=== PATIENT | female | born 1940 | race Caucasian/White ===

== ENCOUNTER 2018-03-01 14:30 | Observation (INO) ==
--- NOTE | 2018-03-01 16:01 | ED ---
HPI General Chief complaint: Shortness of Breath/Dyspnea Stated complaint: Painful Breathing Time Seen by Provider: 03/01/18 15:12 Source: patient and family Mode of arrival: ambulatory Limitations: no limitations History of Present Illness HPI narrative: Patient is a 77-year-old female presenting to emerge from for evaluation of shortness of breath. Patient had a CT-guided lung biopsy yesterday. She states that she had a small pneumothorax and after several chest x-ray she was discharged home. She states that she had not been able to sleep well last night secondary to the pain from the incision. Shortness of breath is worse with exertion. Somewhat alleviated with rest. Symptoms have been consistent since the biopsy. Patient denies any chest pain, fever, chills , nausea, vomiting, headache. Onset (ago): day(s) (1) Location: back Radiation: non-radiation Severity: mild and moderate Severity scale (1-10): 6 Quality: aching and sharp Pain Consistency: intermittent Relieving factors: medication (Tylenol) and other (Heating pad) Exacerbating factors: none Associated symptoms: shortness of breath Treatments prior to arrival: heat therapy Related Data Home Medications Medication Instructions Recorded Confirmed prednisone 10 mg PO BID 02/28/18 02/28/18 Allergies Allergy/AdvReac Type Severity Reaction Status Date / Time No Known Allergies Allergy Verified 03/01/18 15:23 Review of Systems Except as stated in HPI: all other systems reviewed are negative [facility] Medical History Medical History Lung cancer (Acute) GERD (gastroesophageal reflux disease) (Acute) Hx of smoking (Acute) Bronchitis (Acute) Surgical History Surgical History History of bladder suspension procedure (Acute) Family History Family History Father Family history of cancer Mother Family history of cancer Family history of hypertension Sister Family history of cancer Brother Family history of cancer Social History Social History Substance History: No History of Abuse Second Hand Smoke Exposure: No Smoking Status: Former smoker Tobacco Type: Cigarettes How Often Do You Have a Drink Containing Alcohol: 4 or more times a week Recent Travel in [facility] within the Last 8 Weeks: No Recent Out of Country Travel within the Last 8 Weeks: No Immunization History Tetanus Immunization: Unsure Hx Influenza Vaccine This Season: No Exam Narrative Exam Narrative: GENERAL: Well-developed, well-nourished, alert elderly female. Presenting in no acute distress. SKIN: Focused skin assessment warm/dry. Bandage to left mid back. No erythema or induration noted. HEAD: Atraumatic. Normocephalic. EYES: Pupils equal and round. No scleral icterus. No injection or drainage. ENT: No nasal bleeding or discharge. Mucous membranes pink and moist. NECK: Trachea midline. No JVD. CARDIOVASCULAR: Regular rate and rhythm. No murmur appreciated. RESPIRATORY: No accessory muscle use. Significantly diminished in bases bilaterally. No wheezes, rhonchi, rales noted. GASTROINTESTINAL: Abdomen soft, non-tender, nondistended. Hepatic and splenic margins not palpable. MUSCULOSKELETAL: No obvious deformities. No clubbing. No cyanosis. No edema. NEUROLOGICAL: Awake and alert. No obvious cranial nerve deficits. Motor grossly within normal limits. Normal speech. PSYCHIATRIC: Appropriate mood and affect; insight and judgment normal. Course Hospital Course: @ 1620 Pt was sitting on the side of the bed, she became diaphoretic and had a syncopal episode. This was initially witnessed by her who quickly alerted staff. Pt was placed in a supine position and quickly aroused. She was answering questions appropriately. She stated that she had a bad back spasm and became clammy and felt like she was going to pass out. BG 119. VSS, O2 95% on room air. Will repeat EKG, troponin. Pt requested pain medication, morphine 2mg IV x 1 dose ordered along with zofran. Initial Documented Vital Signs Temperature 97.7 F 03/01/18 14:41 Pulse Rate 70 03/01/18 14:41 Respiratory Rate 19 03/01/18 14:41 Blood Pressure 148/82 H 03/01/18 14:41 Pulse Oximetry 98 03/01/18 14:41 Last Documented Vital Signs Temperature 97.7 F 03/01/18 14:41 Pulse Rate 66 03/01/18 15:28 Respiratory Rate 16 03/01/18 18:32 Blood Pressure 152/74 H 03/01/18 15:28 Pulse Oximetry 93 L 03/01/18 15:28 Medical Decision Making DONNELL Attestation DONNELL supervised visit: Yes Attestation: I, Dr. Coleman, have reviewed the advance practice practitioner's documentation and am in agreement, met with the patient face to face, made the diagnosis, and the medical decision making was done by me. *My assessment and Findings: Patient seen and evaluated with PA, please see her notes for further details. Patient had a syncopal episode, day after she had a pulmonary biopsy and was found to have a pneumothorax. She is complaining of upper back and chest pains, saturations are in the low side, but otherwise vital signs are stable. Initial chest x-ray was unremarkable but CT of the lungs shows a small ongoing pneumothorax, no PE. Lab work was fairly unremarkable otherwise. EKG did not show any changes and troponins are negative. At this point, plan would be to admit her as an observation considering her ongoing symptoms. Case has been discussed with Dr. Concepcion for admission. MDM Narrative Medical decision making narrative: Patient is a well-appearing 77-year-old female presenting for evaluation of shortness of breath and pain. Pulse ox is 93% on room air. Patient was placed on 2 L O2 via nasal cannula. Labs and imaging ordered and pending. Patient was placed on telemetry monitoring continuous pulse oximetry. Patient's spouse is at bedside. @ 1620 pt has a near syncopal episode. Troponin, EKG, Ct ordered. Pt was immediately assessed. She was initially drowsy but quickly aroused and stated that she sat up and experienced pain in her back causing her to become clammy and feel as if she was going to pass out. Repeat EKG reviewed, no acute changes. was concerned about radiation exposure in regards to the CTA, decided to assess D-Dimer and if positive will proceed with scan. Advised that D-dimer could be elevated for reasons other than a PE. They verbalized understanding. CTA reviewed. Neg for PE, persistent pneumothorax, LLL PNA. Dr. Concepcion accepted admit. Pt and family aware of findings and agreeable to plan. Pt was seen by my attending as well. Differential Diagnosis Differential Diagnosis: Pneumothorax versus pulmonary embolism versus metabolic abnormality versus pneumonia versus other Medical Records Medical records reviewed: Yes I reviewed the patient's medical records. Lab Data Result diagrams: 03/01/18 15:56 03/01/18 15:56 Lab Results 03/01/18 03/01/18 03/01/18 Range/Units 15:56 15:56 15:56 WBC 14.5 H (4.0-11.0) th/mm3 RBC 4.18 (4.00-5.30) mil/mm3 Hgb 13.3 (11.6-15.3) gm/dL Hct 39.8 (35.0-46.0) % MCV 95.3 (80.0-100.0) fL MCH 31.8 (27.0-34.0) pg MCHC 33.4 (32.0-36.0) % RDW 12.9 (11.6-17.2) % Plt Count 370 (150-450) th/mm3 MPV 7.6 (7.0-11.0) fL Neut % (Auto) 81.8 H (16.0-70.0) % Lymph % (Auto) 10.7 (9.0-44.0) % Grimes % (Auto) 6.3 (0.0-8.0) % Eos % (Auto) 0.7 (0.0-4.0) % Baso % (Auto) 0.5 (0.0-2.0) % Neut # (Auto) 11.8 H (1.8-7.7) th/mm3 Lymph # (Auto) 1.5 (1.0-4.8) th/mm3 Grimes # (Auto) 0.9 (0.0-0.9) th/mm3 Eos # (Auto) 0.1 (0.0-0.4) th/mm3 Baso # (Auto) 0.1 (0.0-0.2) th/mm3 WBC Differential . Differential Comment Auto diff final PT 10.7 (9.8-11.6) sec INR 1.1 Ratio APTT 26.2 (24.3-30.1) sec D-Dimer Quant (PE/DVT) (0.00-0.50) mg/L FEU Sodium 136 (136-145) meq/L Potassium 4.1 (3.5-5.1) meq/L Chloride 102 (98-107) meq/L Carbon Dioxide 21.9 (21.0-32.0) meq/L Anion Gap 12 (5-15) meq/L BUN 13 (7-18) mg/dL Creatinine 0.90 (0.50-1.00) mg/dL Estimated GFR 61 L (>89) mL/min POC Glucose (68-110) mg/dl Random Glucose 114 H (74-106) mg/dL Calcium 8.5 (8.5-10.1) mg/dL Total Bilirubin 0.5 (0.2-1.0) mg/dL AST 15 (15-37) U/L ALT 50 (10-53) U/L Alkaline Phosphatase 85 (45-117) U/L Troponin I (0.02-0.05) ng/mL Total Protein 6.9 (6.4-8.2) g/dL Albumin 3.1 L (3.4-5.0) g/dL 03/01/18 03/01/18 03/01/18 Range/Units 15:56 16:25 17:47 WBC (4.0-11.0) th/mm3 RBC (4.00-5.30) mil/mm3 Hgb (11.6-15.3) gm/dL Hct (35.0-46.0) % MCV (80.0-100.0) fL MCH (27.0-34.0) pg MCHC (32.0-36.0) % RDW (11.6-17.2) % Plt Count (150-450) th/mm3 MPV (7.0-11.0) fL Neut % (Auto) (16.0-70.0) % Lymph % (Auto) (9.0-44.0) % Grimes % (Auto) (0.0-8.0) % Eos % (Auto) (0.0-4.0) % Baso % (Auto) (0.0-2.0) % Neut # (Auto) (1.8-7.7) th/mm3 Lymph # (Auto) (1.0-4.8) th/mm3 Grimes # (Auto) (0.0-0.9) th/mm3 Eos # (Auto) (0.0-0.4) th/mm3 Baso # (Auto) (0.0-0.2) th/mm3 WBC Differential Differential Comment PT (9.8-11.6) sec INR Ratio APTT (24.3-30.1) sec D-Dimer Quant (PE/DVT) 1.13 H (0.00-0.50) mg/L FEU Sodium (136-145) meq/L Potassium (3.5-5.1) meq/L Chloride (98-107) meq/L Carbon Dioxide (21.0-32.0) meq/L Anion Gap (5-15) meq/L BUN (7-18) mg/dL Creatinine (0.50-1.00) mg/dL Estimated GFR (>89) mL/min POC Glucose 119 H (68-110) mg/dl Random Glucose (74-106) mg/dL Calcium (8.5-10.1) mg/dL Total Bilirubin (0.2-1.0) mg/dL AST (15-37) U/L ALT (10-53) U/L Alkaline Phosphatase (45-117) U/L Troponin I Less than 0.02 L (0.02-0.05) ng/mL Total Protein (6.4-8.2) g/dL Albumin (3.4-5.0) g/dL Imaging Data Attestation: I personally reviewed and interpreted this imaging study as follows : Radiologist's impression: Chest X-Ray 03/01/18 15:30 CONCLUSION: Small left pneumothorax no longer apparent Improving lung aeration Chest CTA 03/01/18 15:32 CONCLUSION: 1. The study is negative for pulmonary embolism. 2. Interval development of lobar consolidation in the left lower lung. 3. There is a 12 mm collection of extra pleural gas in the anterior lower left chest in the anterior lateral costophrenic angle. Head CT 03/01/18 16:35 CONCLUSION: 1. Negative noncontrast CT brain. Reviewed Discharge Plan Discharge Disposition Patient Disposition: 30 Still Patient Discharge Condition Condition: Stable Discharge Details Diagnosis: Pneumonia, Pneumothorax after biopsy, Syncope Physicians Team ED Provider: Howard Coleman ED Midlevel Provider: Sara Rashid Primary Care Provider: Carmen Sweeney Attending Provider: Addie Concepcion Status ED Status: Admitted Observation Patient
--- NOTE | 2018-03-01 16:02 | XR ---
EXAM DATE: 03/01/2018 3:58 PM EDT AGE/SEX: 77 years / Female INDICATIONS: Pneumothorax. Left side lung biopsy yesterday. CLINICAL DATA: This is the patient's initial encounter. Patient reports that signs and symptoms have been present for 2 days and indicates a pain score of 8/10. MEDICAL/SURGICAL HISTORY: None. . left lung biopsy 02-28-18 COMPARISON: [facility] [place], CHEST EXPIRATION ONLY, 02/28/2018. . FINDINGS: The left apical pneumothorax described on the prior day cannot be clearly identified and may have res olved. There is improving lung aeration or mild airspace disease remains evident in the left base. Heart and mediastinal structures are stable. CONCLUSION: Small left pneumothorax no longer apparent Improving lung aeration Electronically signed by: Hernando Hernandez MD 03/01/2018 4:01 PM EDT
[2018-03-01] MEDS ORDERED: Morphine Sulfate Inj 2 MG/ML Vial IV.PUSH ONE (16:28)
[2018-03-01 16:49] LABS: Baso # (Auto) 0.1 th/mm3 (0.0-0.2); Baso % (Auto) 0.5 % (0.0-2.0); Eos # (Auto) 0.1 th/mm3 (0.0-0.4); Eos % (Auto) 0.7 % (0.0-4.0); Hematocrit 39.8 % (35.0-46.0); Hemoglobin 13.3 gm/dL (11.6-15.3); Lymph # (Auto) 1.5 th/mm3 (1.0-4.8); Lymph % (Auto) 10.7 % (9.0-44.0); Mean Corpuscular HGB Conc 33.4 % (32.0-36.0); Mean Corpuscular Hemoglobin 31.8 pg (27.0-34.0); Mean Corpuscular Volume 95.3 fL (80.0-100.0); Mean Platelet Volume 7.6 fL (7.0-11.0); Mono # (Auto) 0.9 th/mm3 (0.0-0.9); Mono % (Auto) 6.3 % (0.0-8.0); Neut # (Auto) 11.8 th/mm3 (1.8-7.7); Neut % (Auto) 81.8 % (16.0-70.0); Platelet Count 370 th/mm3 (150-450); Red Blood Count 4.18 mil/mm3 (4.00-5.30); Red Cell Distribution Width 12.9 % (11.6-17.2); White Blood Count 14.5 th/mm3 (4.0-11.0)
[2018-03-01] MEDS ORDERED: Orphenadrine Inj 60 MG/2 ML Ampul IV.PUSH ONE (16:55)
[2018-03-01 17:01] LABS: Activated Partial Thrombo Time 26.2 sec (24.3-30.1); INR 1.1 Ratio; Prothrombin Time 10.7 sec (9.8-11.6)
[2018-03-01] MEDS ORDERED: Lidocaine 5% Patch T-DERMAL ONE (17:52)
[2018-03-01 18:30] LABS: Albumin 3.1 g/dL (3.4-5.0); Anion Gap 12 meq/L (5-15); Aspartate Aminotransferase 15 U/L (15-37); Blood Urea Nitrogen 13 mg/dL (7-18); Calcium 8.5 mg/dL (8.5-10.1); Carbon Dioxide 21.9 meq/L (21.0-32.0); Chloride 102 meq/L (98-107); Glomerular Filtration Rate 61 mL/min (>89); Glucose,Random 114 mg/dL (74-106); Potassium 4.1 meq/L (3.5-5.1); Sodium 136 meq/L (136-145)
[2018-03-01 18:34] LABS: Alanine Aminotransferase 50 U/L (10-53); Alkaline Phosphatase 85 U/L (45-117); Total Protein 6.9 g/dL (6.4-8.2)
--- NOTE | 2018-03-01 19:52 | CT ---
EXAM DATE: 03/01/2018 7:45 PM EDT AGE/SEX: 77 years / Female INDICATIONS: Syncope. CLINICAL DATA: This is the patient's initial encounter. Patient reports that signs and symptoms have been present for 1 day and indicates a pain score of 0/10. MEDICAL/SURGICAL HISTORY: Carcinoma, lung. None. RADIATION DOSE: 56.35 CTDI (mGy) COMPARISON: No prior exams available for comparison. TECHNIQUE: CT of the head without contrast. Using automated exposure control and adjustment of the mA and/or kV according to patient size, radiation dose was kept as low as reasonably achievable to ob tain optimal diagnostic quality images. DICOM format image data is available electronically for revi ew and comparison. FINDINGS: Cerebrum: The ventricles are normal for age. No evidence of midline shift, mass lesion, hemorrhage or acute infarction. No extraaxial fluid collections are seen. Posterior Fossa: The cerebellum and brainstem are intact. The 4th ventricle is midline. The cerebe llopontine angle is unremarkable. Extracranial: The visualized portion of the orbits is intact. Skull: The calvaria is intact. No evidence of skull fracture. CONCLUSION: 1. Negative noncontrast CT brain. Electronically signed by: Bryn Dawson MD 03/01/2018 7:50 PM EDT
--- NOTE | 2018-03-01 20:09 | CT ---
EXAM DATE: 03/01/2018 7:55 PM EDT AGE/SEX: 77 years / Female INDICATIONS: Shortness of breath and chest pain. Patient had a left lung biopsy yesterday. CLINICAL DATA: This is the patient's initial encounter. Patient reports that signs and symptoms have been present for 2 days and indicates a pain score of 10/10. MEDICAL/SURGICAL HISTORY: Carcinoma, lung. . Lung biopsy. RADIATION DOSE: 9.71 CTDI (mGy) COMPARISON: [facility], CT BIOPSY LUNG LEFT, 02/28/2018. [facility], CT CHEST W/O CONTRAST, 02/23/2018. . TECHNIQUE: Volumetric scanning was performed using a multi-row detector CT scanner during bolus infu endy of 50 ml Omnipaque 350 (iohexol) nonionic water-soluble contrast as a single exam dose. The caesar a was post processed with a variety of visualization algorithms including full volume maximum intensi ty projection and sliding thin slab reformation. Using automated exposure control and adjustment of t he mA and/or kV according to patient size, radiation dose was kept as low as reasonably achievable to obtain optimal diagnostic quality images. DICOM format image data is available electronically for r eview and comparison. FINDINGS: Pulmonary Arteries: No filling defects are seen in the pulmonary arteries out to the subsegmental ve ssels. The left and right pulmonary arteries are normal in diameter. Lung: There is left lower lobe consolidation with air bronchograms. 9 mm nodule adjacent to the left heart border unchanged from prior CT. There is some compressive atelectasis adjacent to elevated rig ht hemidiaphragm. Few patchy areas of nonconsolidative infiltrate present in the anterior right midlu ng. There is a tiny loculated collection of gas adjacent to the cardiac apex in the anterior costophr enic angle, best seen on lung window #73; this focal collection 12 mm. No other pneumothorax seen.. Effusion: None. Mediastinum: No evidence of mediastinal or hilar adenopathy. Other: The axilla is unremarkable. CONCLUSION: 1. The study is negative for pulmonary embolism. 2. Interval development of lobar consolidation in the left lower lung. 3. There is a 12 mm collection of extra pleural gas in the anterior lower left chest in the anterior lateral costophrenic angle. Electronically signed by: Bryn Dawson MD 03/01/2018 8:08 PM EDT
[2018-03-01] MEDS ORDERED: Temazepam 15 MG Capsule PO PRN (20:40)
[2018-03-01] MEDS ORDERED: Bisacodyl 10 MG Supp RECTAL PRN (20:40)
--- NOTE | 2018-03-01 20:47 | P.HPIM ---
History of Present Illness Primary Care Physician: Carmen Sweeney DO History of Present Illness: This is a 77-year-old female with a PMH of Bronchitis and Lung Mass who presented to the ER w/ c/o left-sided chest wall pain and SOB. Pt following w/ Dr. Neves as outpatient for recent discovery of lung mass, s/p Left Lung Biopsy 02/28/18 by IR, post-procedure CXR w/ tiny 4mm apical pneumothorax on left , s/p CXR x3 w/ no changes, pt ultimately d/c'd home. Returns now w/ ongoing SOB and persistent left-sided chest wall pain since last night. Pain is intermittent, sharp, severe, 10/10, associated w/ muscle spasm. While in ER, pt had apparent syncopal event as well, no c/o chest pain. On arrival, BP 141/ 69, HR 90, O2 sat 93% on RA, Afebrile. WBC 14.5. D-dimer 1.13. Chemistry essentially unremarkable. Troponin negative. CTA Chest negative for PE, interval development of lobar consolidation left lower lobe, 12 mm pneumothorax. - Diagnosis (1) PNA (pneumonia) (2) Pneumothorax (3) Syncope (4) Intractable pain Review of Systems All other systems reviewed negative except as stated in HPI PMFSH - History History Provided By: Patient, Family Member - Medical History Medical History: Medical History (Last Reviewed 03/01/18 @ 15:59 by GREGORIO Rodney) Lung cancer (Acute) GERD (gastroesophageal reflux disease) (Acute) Hx of smoking (Acute) Bronchitis (Acute) - Surgical History Surgical History: Surgical History (Last Reviewed 03/01/18 @ 15:59 by GREGORIO Rodney) History of bladder suspension procedure (Acute) - Family History Family History: Family History (Last Reviewed 03/01/18 @ 15:59 by GREGORIO Rodney) Father Family history of cancer Mother Family history of cancer Family history of hypertension Sister Family history of cancer Brother Family history of cancer - Tobacco History Second Hand Smoke Exposure: No Tobacco Use In Past 30 Days: No Smoking Status: Former smoker Tobacco Type: Cigarettes - Alcohol History How Often Do You Have a Drink Containing Alcohol: 4 or more times a week - Substance Use History Substance History: No History of Abuse - Travel History Recent Travel in the [facility] Within the Last 8 Weeks: No Recent Travel Out of the Country Within the Last 8 Weeks: No - Immunization History Tetanus Immunization: Unsure Hx Influenza Vaccine This Season: No Medications and Allergies Active Medications: Active Medications Al Hydroxide/Mg Hydroxide (Milk Of Magnesia Liq) 30 ml PO Q12H PRN PRN Reason: Mild Constipation Albuterol (Duoneb Neb (Prn)) 1 ampul NEB Q4HR NEB PRN PRN Reason: SOB/WHEEZING Bisacodyl (Dulcolax Supp) 10 mg RECTAL DAILY PRN PRN Reason: SEVERE CONSITIPATION Azithromycin 500 mg/ Sodium (Chloride) 250 mls @ 250 mls/hr IV.SIG Q24H TED Ceftriaxone Sodium 1,000 mg/ (Sodium Chloride) 100 mls @ 200 mls/hr IV.SIG Q24H TED Sodium Chloride (Ns Inj) 1,000 mls @ 100 mls/hr IV.CONT .Q10H TED Lactulose (Lactulose Liq) 30 ml PO DAILY PRN PRN Reason: SEVERE CONSITIPATION Ondansetron HCl (Zofran Inj) 4 mg IV.PUSH Q6H PRN PRN Reason: NAUSEA OR VOMITING Senna/Docusate Sodium (Brunilda-Colace) 1 tab PO BID TED Sennosides (Senokot) 17.2 mg PO Q12H PRN PRN Reason: Moderate Constipation Sodium Chloride (Ns Flush) 2 ml IV.FLUSH PRN PRN PRN Reason: FLUSH AFTER USING IV ACCESS Temazepam (Restoril) 15 mg PO HS PRN PRN Reason: INSOMNIA Allergies Allergy/AdvReac Type Severity Reaction Status Date / Time No Known Allergies Allergy Verified 03/01/18 15:23 Home Medications Medication Instructions Recorded Confirmed Type prednisone 10 mg PO BID 02/28/18 02/28/18 History Exam Vital signs: Vital Signs 03/01/18 14:41 03/01/18 15:28 03/01/18 18:32 Temperature 97.7 F Pulse Rate 70 66 Respiratory Rate 19 16 16 Blood Pressure 148/82 H 152/74 H Pulse Oximetry 98 93 L Intake & Output 03/01/18 03/01/18 03/02/18 06:59 18:59 06:59 Weight 74.389 kg Narrative: PE: GENERAL: Very pleasant elderly white female in moderate distress due to pain. Daughter at bedside. HEENT: PERRLA, EOMI. No scleral icterus or conjunctival pallor. No lid lag or facial droop. CARDIOVASCULAR: Regular rate and rhythm. No obvious murmurs to auscultation. No chest tenderness to palpation. RESPIRATORY: No obvious rhonchi or wheezing. Clear to auscultation. Breath sounds equal bilaterally. GASTROINTESTINAL: Abdomen soft, non-tender, nondistended. BS normal. MUSCULOSKELETAL: Extremities without clubbing, cyanosis, or edema. No obvious deformities. NEUROLOGICAL: Awake, alert and oriented x4. No focal neurologic deficits. Moving both upper and lower extremities spontaneously. Results - Labs CBC & Chem 7: 03/01/18 15:56 03/01/18 15:56 Labs: Short CBC 03/01/18 Range/Units 15:56 WBC 14.5 H (4.0-11.0) th/mm3 Hgb 13.3 (11.6-15.3) gm/dL Hct 39.8 (35.0-46.0) % Plt Count 370 (150-450) th/mm3 BMP 03/01/18 15:56 Sodium 136 Potassium 4.1 Chloride 102 Carbon Dioxide 21.9 BUN 13 Creatinine 0.90 Calcium 8.5 Cardiac Enzymes 03/01/18 Range/Units 15:56 Troponin I Less than 0.02 L (0.02-0.05) ng/mL Liver Function 03/01/18 Range/Units 15:56 Total Bilirubin 0.5 (0.2-1.0) mg/dL AST 15 (15-37) U/L ALT 50 (10-53) U/L Alkaline Phosphatase 85 (45-117) U/L Albumin 3.1 L (3.4-5.0) g/dL - Imaging Impressions Chest X-Ray 03/01/18 15:30 CONCLUSION: Small left pneumothorax no longer apparent Improving lung aeration Chest CTA 03/01/18 15:32 CONCLUSION: 1. The study is negative for pulmonary embolism. 2. Interval development of lobar consolidation in the left lower lung. 3. There is a 12 mm collection of extra pleural gas in the anterior lower left chest in the anterior lateral costophrenic angle. Head CT 03/01/18 16:35 CONCLUSION: 1. Negative noncontrast CT brain. Caprini VTE Risk Assessment Caprini VTE Risk Assessment: No/Low Risk (score <= 1) Caprini Risk Assessment Model: Point Value = 1 Point Value = 2 Point Value = 3 Point Value = 5 Age 41-60 Minor surgery BMI > 25 kg/m2 Swollen legs Varicose veins or History of unexplained or recurrent spontaneous Oral contraceptives or hormone replacement Sepsis (< 1 month) Serious lung disease, including pneumonia (< 1 month) Abnormal pulmonary function Acute myocardial infarction Congestive heart failure (< 1 month) History of inflammatory bowel disease Medical patient at bed rest Age 61-74 Arthroscopic surgery Major open surgery (> 45 min) Laparoscopic surgery (> 45 min) Malignancy Confined to bed (> 72 hours) Immobilizing plaster cast Central venous access Age >= 75 History of VTE Family history of VTE Factor V Leiden Prothrombin [id number] Lupus anticoagulant Anticardiolipin antibodies Elevated serum homocysteine Heparin-induced thrombocytopenia Other congenital or acquired thrombophilia Stroke (< 1 month) Elective arthroplasty Hip, pelvis, or leg fracture Acute spinal cord injury (< 1 month) Prophylaxis Regimen: Total Risk Factor Score Risk Level Prophylaxis Regimen 0-1 Low Early ambulation 2 Moderate Order ONE of the following: *Sequential Compression Device (SCD) *Heparin 5000 units SQ BID 3-4 Higher Order ONE of the following medications: *Heparin 5000 units SQ TID *Enoxaparin/Lovenox 40 mg SQ daily (WT < 150 kg, CrCl > 30 mL/min) *Enoxaparin/Lovenox 30 mg SQ daily (WT < 150 kg, CrCl > 10-29 mL/min) *Enoxaparin/Lovenox 30 mg SQ BID (WT < 150 kg, CrCl > 30 mL/min) AND/OR *Sequential Compression Device (SCD) 5 or more Highest Order ONE of the following medications: *Heparin 5000 units SQ TID (Preferred with Epidurals) *Enoxaparin/Lovenox 40 mg SQ daily (WT < 150 kg, CrCl > 30 mL/min) *Enoxaparin/Lovenox 30 mg SQ daily (WT < 150 kg, CrCl > 10-29 mL/min) *Enoxaparin/Lovenox 30 mg SQ BID (WT < 150 kg, CrCl > 30 mL/min) AND *Sequential Compression Device (SCD) Assessment and Plan - Assessment (1) PNA (pneumonia) Code(s): J18.9 - Pneumonia, unspecified organism Status: Acute (2) Pneumothorax Code(s): J93.9 - Pneumothorax, unspecified Status: Acute (3) Syncope Code(s): R55 - Syncope and collapse Status: Acute (4) Intractable pain Code(s): R52 - Pain, unspecified Status: Acute - Plan A/P: 1. PNA: CTA Chest negative for PE, +LLL PNA, images reviewed. Start on IV Rocephin/Zithro, DuoNeb prn, monitor O2. 2. PTx: s/p left lung biopsy 02/28/18 by IR for lung mass, pathology pending, CXR post-procedure w/ tiny apical left pneumo 4mm, s/p CXR x3 w/ no changes. CTA w/ 12mm pneumothorax, O2 stable, monitor closely. NRM, Consult Dr. Neves for further evaluation/intervention. 3. Intractable Pain: reports severe ongoing left-sided pain at site of biopsy , Linn/Morphine, s/p Lidoderm, start Flexeril for muscle spasm. 4. Syncope: likely vagal event from severe pain, no c/o chest pain. Check Echo to eval for possible valvular abnormality/cardiomyopathy, check serial cardiac enzymes to eval for possible ischemia. 5. DVT Prophylaxis: SCD/Teds 6. Social work for d/c planning as needed 7. Case discussed w/ ER physician at length, labs/records/imaging reviewed by me.
[2018-03-01] MEDS: Morphine Inj 4 MG/ML Vial IV.PUSH PRN (22:09)
[2018-03-01] MEDS: Azithromycin Inj 500 MG in Sodium Chlor 0.9% Inj 250 ML IV.SIG SCH (22:41)
[2018-03-01] MEDS: Senna/Docusate Sodium 8.6/50 MG Tablet PO SCH (22:42)
[2018-03-01] MEDS: Sod Chloride 0.9% Inj 1,000 ML IV.CONT SCH (22:42)
[2018-03-02] MEDS: Morphine Inj 4 MG/ML Vial IV.PUSH PRN (03:31)
[2018-03-02] MEDS: Sod Chloride 0.9% Inj 1,000 ML IV.CONT SCH ×2 (06:25→18:27)
--- NOTE | 2018-03-02 06:48 | XR ---
EXAM DATE: 03/02/2018 6:37 AM EDT AGE/SEX: 77 years / Female INDICATIONS: Pneumothorax. CLINICAL DATA: This is the patient's subsequent encounter. Patient reports that signs and symptoms h ave been present for 2 days and indicates a pain score of 7/10. MEDICAL/SURGICAL HISTORY: None. . Left lung biopsy. COMPARISON: [facility] – [place], CHEST 1V SINGLE AP, 03/01/2018. [facility] – [place], CTA PULMONARY W CONTRAST W 3D, 03/01/2018. . FINDINGS: Left greater than right basilar atelectasis. Small left pleural effusion present, slightly larger alina n yesterday. No perceptible pneumothorax. Heart size stable, within normal limits. CONCLUSION: 1. Left greater than right basilar atelectasis/consolidation not significantly changed. 2. Small left pleural effusion is slightly larger than yesterday. 3. No perceptible pneumothorax. Electronically signed by: Timi Alegre MD 03/02/2018 6:47 AM EDT
[2018-03-02] MEDS: Senna/Docusate Sodium 8.6/50 MG Tablet PO SCH ×2 (08:31→20:26)
--- NOTE | 2018-03-02 10:06 | ECG ---
Date Performed: 03/01/2018 Time Performed: 16:38:59 PTAGE: 77 years EKG: Sinus rhythm NORMAL ECG NO PREVIOUS TRACING DOCTOR: Umm Marquez Interpretating Date/Time 03/02/2018 10:04:56
--- NOTE | 2018-03-02 12:10 | P.PN ---
Subjective Interval history: Follow up visit bronchitis, lung mass who came into the ER for left-sided chest wall pain and shortness of breath. Patient is status post lung biopsy 02/28/18 by IR postprocedure x-ray with apical pneumothorax. Patient seen and examined today. Patient is in excruciating pain, states that it is a little bit better because of the Percocet that she received however she continues to have severe pain with movement, rated 10/10, currently it is 4/10 if she is not moving, states that the morphine is not helping her nor does the muscle relaxant. Otherwise, denies SOB/ dyspnea. Denies chest pain, palpitations, headaches, dizziness. Denies fevers, chills, n/v/d. Denies dysuria. Physical Exam Vital signs: Vital Signs 03/01/18 14:41 03/01/18 15:28 03/01/18 18:32 Temperature 97.7 F Pulse Rate 70 66 Respiratory Rate 19 16 16 Blood Pressure 148/82 H 152/74 H Pulse Oximetry 98 93 L 03/01/18 22:01 03/01/18 23:59 03/02/18 04:00 Temperature 97.8 F 98.1 F 97.9 F Pulse Rate 90 89 83 Respiratory Rate 18 18 18 Blood Pressure 141/69 H 135/77 126/65 Pulse Oximetry 93 L 92 L 90 L 03/02/18 08:00 03/02/18 09:36 03/02/18 11:58 Temperature 97.6 F Pulse Rate 74 73 Respiratory Rate 18 5 L Blood Pressure 141/65 H Pulse Oximetry 94 L Intake & Output 03/01/18 03/02/18 03/02/18 18:59 06:59 18:59 Intake Total 1450 / 1450 Balance 1450 / 1450 Weight 74.389 kg Intake: IV 1450 / 1450 NS Inj 1,000 ML @ 100 mls/hr IV 1000 / 1000 .CONT .Q10H [facility] Rx#:[id number] Ofirmev Inj 1,000 mg In 100 ml 100 / 100 @ 400 mls/hr IV.SIG ONCE ONE Rx #:[id number] Azithromycin Inj 500 MG In NS 250 / 250 Inj 250 ML @ 250 mls/hr IV.SIG Q24H TED Rx#:[id number] Rocephin Inj 1,000 MG In NS Inj 100 / 100 100 ML @ 200 mls/hr IV.SIG Q24H [facility] Rx#:[id number] Other: Date of Last Bowel Movement 02/28/18 Narrative: GENERAL: This is a well-nourished, well-developed patient, in mild distress. SKIN: Warm and dry. HEENT: Normocephalic. Pupils equal round and reactive. Nose without bleeding. Airway patent. NECK: Trachea midline. CARDIOVASCULAR: Regular rate and rhythm without murmurs, gallops, or rubs. RESPIRATORY: Clear to auscultation. Breath sounds equal bilaterally. No wheezes , rales, or rhonchi. GASTROINTESTINAL: Abdomen soft, non-tender, nondistended. Bowel Sounds normoactive x4. MUSCULOSKELETAL: Extremities without clubbing, cyanosis, or edema. NEUROLOGICAL: Awake and alert. Oriented to place, person. No focal neuro deficit. Moves all extremities. Normal speech. Results - Labs CBC & Chem 7: 03/02/18 11:18 03/02/18 11:18 Laboratory Results - last 24 hr 03/01/18 03/01/18 03/01/18 15:56 15:56 15:56 WBC 14.5 H RBC 4.18 Hgb 13.3 Hct 39.8 MCV 95.3 MCH 31.8 MCHC 33.4 RDW 12.9 Plt Count 370 MPV 7.6 Neut % (Auto) 81.8 H Lymph % (Auto) 10.7 Delta % (Auto) 6.3 Eos % (Auto) 0.7 Baso % (Auto) 0.5 Neut # (Auto) 11.8 H Lymph # (Auto) 1.5 Delta # (Auto) 0.9 Eos # (Auto) 0.1 Baso # (Auto) 0.1 WBC Differential . Differential Comment Auto diff final PT 10.7 INR 1.1 APTT 26.2 D-Dimer Quant (PE/DVT) Sodium 136 Potassium 4.1 Chloride 102 Carbon Dioxide 21.9 Anion Gap 12 BUN 13 Creatinine 0.90 Estimated GFR 61 L POC Glucose Random Glucose 114 H Calcium 8.5 Total Bilirubin 0.5 AST 15 ALT 50 Alkaline Phosphatase 85 Troponin I Total Protein 6.9 Albumin 3.1 L 03/01/18 03/01/18 03/01/18 15:56 16:25 17:47 WBC RBC Hgb Hct MCV MCH MCHC RDW Plt Count MPV Neut % (Auto) Lymph % (Auto) Delta % (Auto) Eos % (Auto) Baso % (Auto) Neut # (Auto) Lymph # (Auto) Delta # (Auto) Eos # (Auto) Baso # (Auto) WBC Differential Differential Comment PT INR APTT D-Dimer Quant (PE/DVT) 1.13 H Sodium Potassium Chloride Carbon Dioxide Anion Gap BUN Creatinine Estimated GFR POC Glucose 119 H Random Glucose Calcium Total Bilirubin AST ALT Alkaline Phosphatase Troponin I Less than 0.02 L Total Protein Albumin 03/02/18 00:27 WBC RBC Hgb Hct MCV MCH MCHC RDW Plt Count MPV Neut % (Auto) Lymph % (Auto) Delta % (Auto) Eos % (Auto) Baso % (Auto) Neut # (Auto) Lymph # (Auto) Delta # (Auto) Eos # (Auto) Baso # (Auto) WBC Differential Differential Comment PT INR APTT D-Dimer Quant (PE/DVT) Sodium Potassium Chloride Carbon Dioxide Anion Gap BUN Creatinine Estimated GFR POC Glucose Random Glucose Calcium Total Bilirubin AST ALT Alkaline Phosphatase Troponin I Less than 0.02 L Total Protein Albumin - Imaging Impressions Chest X-Ray 03/01/18 15:30 CONCLUSION: Small left pneumothorax no longer apparent Improving lung aeration Chest CTA 03/01/18 15:32 CONCLUSION: 1. The study is negative for pulmonary embolism. 2. Interval development of lobar consolidation in the left lower lung. 3. There is a 12 mm collection of extra pleural gas in the anterior lower left chest in the anterior lateral costophrenic angle. Head CT 03/01/18 16:35 CONCLUSION: 1. Negative noncontrast CT brain. Chest X-Ray 03/02/18 06:00 CONCLUSION: 1. Left greater than right basilar atelectasis/consolidation not significantly changed. 2. Small left pleural effusion is slightly larger than yesterday. 3. No perceptible pneumothorax. Assessment and Plan - Assessment (1) PNA (pneumonia) Code(s): J18.9 - Pneumonia, unspecified organism Status: Acute (2) Pneumothorax Code(s): J93.9 - Pneumothorax, unspecified Status: Acute (3) Syncope Code(s): R55 - Syncope and collapse Status: Acute (4) Intractable pain Code(s): R52 - Pain, unspecified Status: Acute - Plan 77-year-old female with a PMH of Bronchitis and Lung Mass who presented to the ER w/ c/o left-sided chest wall pain and SOB. Pt following w/ Dr. Neves as outpatient for recent discovery of lung mass, s/p Left Lung Biopsy 02/28/18 by IR , post-procedure CXR w/ tiny 4mm apical pneumothorax on left, s/p CXR x3 w/ no changes, pt ultimately d/c'd home PNA -CTA Chest negative for PE, +LLL PNA, images reviewed. -IV Rocephin/Zithro, DuoNeb prn, monitor O2. PTx, s/p left lung biopsy 02/28/18 by IR for lung mass, pathology pending -CXR post-procedure w/ tiny apical left pneumo 4mm, s/p CXR x3 w/ no changes -CTA w/ 12mm pneumothorax, O2 stable, monitor closely. NRM, -Consult Dr. Neves for further evaluation/intervention. Appreciate recommendations. Intractable Pain -reports severe ongoing left-sided pain at site of biopsy -steroid by Dr. Martínez the mass is very near the spinal canal that it is more painful than usual biopsy -[place] 5-10, IV Dilaudid for breakthrough Syncope -likely vagal event from severe pain, no c/o chest pain. -Check Echo to eval for possible valvular abnormality/cardiomyopathy, pending -Serial cardiac enzymes negative. DVT Prophylaxis: SCD/Teds Code Status: Full Code Discussed Condition With: Patient, nursing, Dr. Dale, Dr. Neves Discharge Planning: DC when clinically improved. Transition pain meds
[2018-03-02 12:50] LABS: Baso % (Auto) 0.4 % (0.0-2.0); Eos # (Auto) 0.1 th/mm3 (0.0-0.4); Eos % (Auto) 0.9 % (0.0-4.0); Hematocrit 39.8 % (35.0-46.0); Hemoglobin 13.2 gm/dL (11.6-15.3); Lymph # (Auto) 1.1 th/mm3 (1.0-4.8); Lymph % (Auto) 8.8 % (9.0-44.0); Mean Corpuscular HGB Conc 33.2 % (32.0-36.0); Mean Corpuscular Hemoglobin 32.2 pg (27.0-34.0); Mean Corpuscular Volume 96.9 fL (80.0-100.0); Mean Platelet Volume 7.6 fL (7.0-11.0); Mono # (Auto) 0.7 th/mm3 (0.0-0.9); Mono % (Auto) 5.5 % (0.0-8.0); Neut # (Auto) 10.9 th/mm3 (1.8-7.7); Neut % (Auto) 84.4 % (16.0-70.0); Platelet Count 316 th/mm3 (150-450); Red Blood Count 4.11 mil/mm3 (4.00-5.30)
[2018-03-02 13:00] LABS: Alanine Aminotransferase 44 U/L (10-53); Anion Gap 5 meq/L (5-15); Aspartate Aminotransferase 8 U/L (15-37); Blood Urea Nitrogen 9 mg/dL (7-18); Calcium 8.5 mg/dL (8.5-10.1); Carbon Dioxide 28.7 meq/L (21.0-32.0); Chloride 107 meq/L (98-107); Glomerular Filtration Rate 68 mL/min (>89); Glucose,Random 93 mg/dL (74-106); Potassium 4.9 meq/L (3.5-5.1); Sodium 141 meq/L (136-145)
[2018-03-02] MEDS ORDERED: HYDROmorphone PF Inj 2 MG/ML Vial IV.PUSH PRN (13:00)
[2018-03-02] MEDS ORDERED: HYDROmorphone PF Inj 2 MG/ML Vial IV.PUSH ONE (13:00)
[2018-03-02 13:03] LABS: Alkaline Phosphatase 83 U/L (45-117); Total Protein 6.7 g/dL (6.4-8.2)
--- NOTE | 2018-03-02 14:18 | MB ---
cc: Guanako Neves MD DATE: 03/02/2018 DATE OF CONSULTATION: 03/02/2018 REASON FOR CONSULTATION: Pneumonia and chest pain. HISTORY OF PRESENT ILLNESS: This is a 77-year-old lady who has had a history of left lung density for which she underwent a CT-guided needle biopsy 2 days ago, had a small pneumothorax, which was followed with serial x-rays and subsequently she was discharged on the day of the biopsy. After she went home, the patient apparently could not sleep due to severe pain along the lower chest and back. She was also short of breath and thus was brought back to the emergency room. The patient was on oral antibiotics as well as oral prednisone this past week and was on Zithromax 250 mg daily for 5 days. She has not been on any pain medication but since the biopsy her pain was so severe that she had to receive pain medications and thus was seen in the emergency room and a chest x-ray that was done showed only a tiny left pneumothorax. She was given morphine, which did not relieve the pain and subsequently Percocet did control her pain. She is now admitted, placed on oxygen and a CT scan of the chest showed no evidence of pulmonary emboli, but had a consolidation in the left lower lobe. The patient is now on IV antibiotics including IV Rocephin and Zithromax. She has no hemoptysis. She is not running any fevers and the final CT biopsy report is still pending. PAST SURGICAL HISTORY: Significant for bladder suspension surgery. PAST MEDICAL HISTORY: The patient has had no history of chronic lung disease. She has had gastroesophageal reflux. ALLERGIES: NO DRUG ALLERGIES LISTED. HABITS: The patient was a prior smoker for over 20 years and uses alcohol occasionally. FAMILY HISTORY: Significant for cancer in her mother as well as her father and 1 sister. MEDICATION LIST: Included Zithromax 500 mg a day, Rocephin 1 gram IV daily and Temazepam 15 mg at bedtime. REVIEW OF SYSTEMS: The patient's main complaint is pain involving the left lower chest and back, difficulty taking deep breaths. She has cough, but no hemoptysis. She has wheezing and denies any leg or calf muscle pains. No urinary symptoms or GI symptoms. PHYSICAL EXAMINATION: GENERAL: This is an averagely built elderly white female, in no acute distress. No pallor. No icterus. No lymphadenopathy or peripheral edema. VITAL SIGNS: Blood pressure is 130/60, pulse is 72, respirations 20, temperature 97.2. HEENT: Head is normocephalic. Pupils reactive. Tongue is moist. Throat is injected. NECK: Supple, no bruits. No lymphadenopathy or thyromegaly. CHEST: Reveals equal movements, some tenderness along the biopsy site posteriorly on the left side. Breath sounds are diminished at the bases, more so on the left side with occasional wheezes anteriorly. HEART: The heart sounds are regular. S1 and S2 with no obvious murmur. ABDOMEN: Soft, nontender. No organomegaly. Bowel sounds are active. EXTREMITIES: No clubbing or edema. No calf tenderness. NEUROLOGIC: Reflexes are 1+. The patient does move all her extremities well with no gross motor or sensory deficits. RECTAL: Deferred. IMPRESSION: 1. Status post CT-guided needle biopsy of left lung lesion. 2. Left basilar pneumonia and pleurisy. 3. Left pneumothorax, resolving. 4. Chronic obstructive pulmonary disease. PLAN: The patient will be continued on Rocephin 1 gram IV daily and Zithromax 500 mg IV daily. Repeat chest x-ray in the a.m. Nebulized DuoNeb solution added q.i.d. and p.r.n. Solu-Medrol 40 mg IV every 8 hours. CBC and BMP to be repeated in a.m. Continue with Percocet 5/325 q.4 hours p.r.n. for severe pain. I will follow the case with you, Dr. Concepcion. Thank you for this consultation. Guanako Neves MD VJD/DEMARCO , 01:51 PM , 02:17 PM
[2018-03-02] MEDS: MethylPREDNISolone Sod Succinate Inj 40 MG/ML Vial IV.PUSH SCH ×2 (14:49→22:43)
--- NOTE | 2018-03-02 18:52 | ECHRPT ---
Indication: CARDIOMYOPATHY CONCLUSIONS The left ventricular systolic function is normal with an estimated ejection fraction in the range of 60-65%. Mild concentric left ventricular hypertrophy. [id number] mitral valve regurgitation. There is trace tricuspid valve regurgitation. BP: / HR: Rhythm: Sinus MEASUREMENTS (Male / Female) Normal Values Technical Quality:Very technically difficult study 2D ECHO LV Diastolic Diameter PLAX 4.1 cm 4.2 - 5.9 / 3.9 - 5.3 cm LV Systolic Diameter PLAX 2.9 cm IVS Diastolic Thickness 1.3 cm 0.6 - 1.0 / 0.6 - 0.9 cm LVPW Diastolic Thickness 1.3 cm 0.6 - 1.0 / 0.6 - 0.9 cm LV Relative Wall Thickness 0.6 RV Internal Dim ED PLAX 2.6 cm LVOT Diameter 1.9 cm Aortic Root Diameter 2.7 cm LA Systolic Diameter LX 3.0 cm 3.0 - 4.0 / 2.7 - 3.8 cm DOPPLER AV Peak Velocity 127.0 cm/s AV Peak Gradient 6.5 mmHg AV Mean Gradient 4.0 mmHg AV Velocity Time Integral 24.4 cm LVOT Peak Velocity 107.0 cm/s LVOT Peak Gradient 4.6 mmHg LVOT Velocity Time Integral 19.4 cm AV Area Cont Eq vti 2.3 cm AV Area Cont Eq pk 2.4 cm Mitral E Point Velocity 91.3 cm/s Mitral A Point Velocity 116.0 cm/s Mitral E to A Ratio 0.8 LV E' Lateral Velocity 6.6 cm/s Mitral E to LV E' Lateral Ratio 13.8 LV E' Septal Velocity 5.2 cm/s Mitral E to LV E' Septal Ratio 17.7 TR Peak Velocity 262.0 cm/s TR Peak Gradient 27.0 mmHg Right Atrial Pressure 10.0 mmHg Pulmonary Artery Systolic Pressu 37.5 mmHg Right Ventricular Systolic Press 37.5 mmHg PV Peak Velocity 51.1 cm/s PV Peak Gradient 1.0 mmHg FINDINGS LEFT VENTRICLE Normal left ventricular size. Mild concentric left ventricular hypertrophy. The left ventricular systolic function is normal with an estimated ejection fraction in the range of 60-65%. RIGHT VENTRICLE Normal right ventricular size and systolic function. LEFT ATRIUM The left atrial size is normal. RIGHT ATRIUM The right atrium is not well visualized. ATRIAL SEPTUM No atrial level shunt is demonstrated by color flow Doppler interrogation. AORTA The aortic root and proximal ascending aorta are normal in size on limited imaging. MITRAL VALVE Structurally normal mitral valve. Mitral annular calcification is present. [id number] mitral valve regurgitation. AORTIC VALVE Grossly normal aortic valve No aortic valve stenosis or regurgitation. TRICUSPID VALVE Structurally normal tricuspid valve. There is trace tricuspid valve regurgitation. The estimated pulmonary arterial pressure is 37.5 mmHg. PULMONARY VALVE No pulmonary valve regurgitation or stenosis. VESSELS The inferior vena cava is normal in size. PERICARDIUM No pericardial effusion. Kevin Contreras DO (Electronically Signed) Final Date:02 March 2018 18:51
[2018-03-02] MEDS: Azithromycin Inj 500 MG in Sodium Chlor 0.9% Inj 250 ML IV.SIG SCH (20:24)
[2018-03-03] MEDS: Sod Chloride 0.9% Inj 1,000 ML IV.CONT SCH ×2 (04:58→12:49)
[2018-03-03] MEDS: MethylPREDNISolone Sod Succinate Inj 40 MG/ML Vial IV.PUSH SCH ×3 (05:32→22:35)
--- NOTE | 2018-03-03 05:38 | XR ---
EXAM DATE: 03/03/2018 5:33 AM EDT AGE/SEX: 77 years / Female INDICATIONS: Pneumothorax. CLINICAL DATA: This is the patient's subsequent encounter. Patient reports that signs and symptoms h ave been present for 3 days and indicates a pain score of 5/10. MEDICAL/SURGICAL HISTORY: . Carcinoma, lung. . Lung biopsy COMPARISON: [facility] [place], [place]ST 1V SINGLE AP, 03/02/2018. . FINDINGS: Single AP view of the chest. Lung volumes are low. Left greater than right lower lung zone atelectasi s unchanged. Left-sided pleural effusion unchanged. No evidence of pneumothorax. CONCLUSION: Decreased lung volumes. No other significant interval change. Persistent left greater than right lowe r lung zone parenchymal opacity and left pleural effusion. Electronically signed by: Victor Manuel Thompson MD 03/03/2018 5:36 AM EDT
[2018-03-03] MEDS: Senna/Docusate Sodium 8.6/50 MG Tablet PO SCH (08:23)
--- NOTE | 2018-03-03 13:40 | P.PN ---
Subjective Interval history: Feels much better and is able to take a deep breath. No fever. Coughed up clear sputum. CXR showed basal infiltrates and a left effusion. Biopsy result pending. Physical Exam Vital signs: Vital Signs 03/02/18 16:00 03/02/18 16:46 03/03/18 00:00 Temperature 97.5 F L 97.8 F Pulse Rate 80 62 Respiratory Rate 20 18 16 Blood Pressure 157/53 H 130/70 Pulse Oximetry 94 L 92 L 03/03/18 01:27 03/03/18 04:00 03/03/18 08:00 Temperature 97.7 F 97.5 F L Pulse Rate 67 67 Respiratory Rate 12 20 18 Blood Pressure 127/68 138/78 Pulse Oximetry 95 92 L 03/03/18 09:00 03/03/18 12:19 Temperature 98.3 F Pulse Rate 68 98 H Respiratory Rate 18 Blood Pressure 132/73 Pulse Oximetry 91 L Intake & Output 03/02/18 03/03/18 03/03/18 18:59 06:59 18:59 Intake Total 1620 / 1620 1250 / 1250 1000 / 1000 Balance 1620 / 1620 1250 / 1250 1000 / 1000 Weight 74.8 kg Intake: IV 1000 / 1000 1250 / 1250 1000 / 1000 NS Inj 1,000 ML @ 100 mls/hr IV 1000 / 1000 1000 / 1000 1000 / 1000 .CONT .Q10H [facility] Rx#:[id number] Azithromycin Inj 500 MG In NS 250 / 250 Inj 250 ML @ 250 mls/hr IV.SIG Q24H [facility] Rx#:[id number] Oral 620 / 620 Other: # Voids 4 Date of Last Bowel Movement 02/28/18 Narrative: GENERAL: This is a well-nourished, well-developed patient, in no distress. SKIN: Warm and dry. HEENT: Normocephalic. Pupils equal round and reactive. Nose without bleeding. NECK: Trachea midline. CARDIOVASCULAR: Regular rate and rhythm without murmurs, gallops, or rubs. RESPIRATORY:Breath sounds diminished at bases.Occ Basal crackles. GASTROINTESTINAL: Abdomen soft, non-tender, nondistended. Bowel Sounds normoactive x4. MUSCULOSKELETAL: Extremities without clubbing, cyanosis, or edema. NEUROLOGICAL: Awake and alert. Oriented to place, person. No focal neuro deficit. Moves all extremities. Normal speech. Results - Labs CBC & Chem 7: 03/02/18 11:18 03/02/18 11:18 - Imaging Impressions Chest X-Ray 03/03/18 00:00 CONCLUSION: Decreased lung volumes. No other significant interval change. Persistent left greater than right lower lung zone parenchymal opacity and left pleural effusion. Assessment and Plan - Assessment (1) Pleural effusion Code(s): J90 - Pleural effusion, not elsewhere classified Status: Acute Plan: Will rpt Chest Xray in am (2) Mass of left lung Code(s): R91.8 - Other nonspecific abnormal finding of lung field Status: Acute Plan: Await CT biopsy results (3) Pneumonia Code(s): J18.9 - Pneumonia, unspecified organism Status: Acute Plan: Continue Antibiotics , Rocephin IV and zithromax (4) Pneumothorax after biopsy Code(s): J95.811 - Postprocedural pneumothorax Status: Acute Plan: Chest XRay in am (5) Syncope Code(s): R55 - Syncope and collapse Status: Acute (6) PNA (pneumonia) Code(s): J18.9 - Pneumonia, unspecified organism Status: Acute Plan: Duoneb nebs tid (7) Intractable pain Code(s): R52 - Pain, unspecified Status: Acute - Plan 1.Percocet 5/325 mg qid prn 2. Chest XRay PA and Lat 3. O2 2 L PRN 4. Continue Rocephin 1 G IV and Zithromax 500 mg IV daily 5. CBC,BMP (3) Pneumonia Qualifiers: Pneumonia type: due to unspecified organism Laterality: left Lung location: lower lobe of lung Qualified Code(s): J18.1 - Lobar pneumonia, unspecified organism (5) Syncope Qualifiers: Syncope type: unspecified Qualified Code(s): R55 - Syncope and collapse
--- NOTE | 2018-03-03 15:21 | P.PN ---
Subjective Interval history: Follow up visit bronchitis, lung mass who came into the ER for left-sided chest wall pain and shortness of breath. Patient seen and examined today. at the bedside. Reports she is doing a lot better. Able to move around, pain is improved. Breathing a lot better. Does not need O2 all day today. Denies pain and discomfort. Denies SOB/ dyspnea. Denies chest pain, palpitations, headaches, dizziness. Denies fevers, chills, n/v/d. Denies dysuria. Physical Exam Vital signs: Vital Signs 03/02/18 16:00 03/02/18 16:46 03/03/18 00:00 Temperature 97.5 F L 97.8 F Pulse Rate 80 62 Respiratory Rate 20 18 16 Blood Pressure 157/53 H 130/70 Pulse Oximetry 94 L 92 L 03/03/18 01:27 03/03/18 04:00 03/03/18 08:00 Temperature 97.7 F 97.5 F L Pulse Rate 67 67 Respiratory Rate 12 20 18 Blood Pressure 127/68 138/78 Pulse Oximetry 95 92 L 03/03/18 09:00 03/03/18 12:19 Temperature 98.3 F Pulse Rate 68 98 H Respiratory Rate 18 Blood Pressure 132/73 Pulse Oximetry 91 L Intake & Output 03/02/18 03/03/18 03/03/18 18:59 06:59 18:59 Intake Total 1620 / 1620 1250 / 1250 1100 / 1100 Balance 1620 / 1620 1250 / 1250 1100 / 1100 Weight 74.8 kg Intake: IV 1000 / 1000 1250 / 1250 1100 / 1100 NS Inj 1,000 ML @ 100 mls/hr IV 1000 / 1000 1000 / 1000 1000 / 1000 .CONT .Q10H TED Rx#:[id number] Azithromycin Inj 500 MG In NS 250 / 250 Inj 250 ML @ 250 mls/hr IV.SIG Q24H [facility] Rx#:[id number] Rocephin Inj 1,000 MG In NS Inj 100 / 100 100 ML @ 200 mls/hr IV.SIG Q24H [facility] Rx#:[id number] Oral 620 / 620 Other: # Voids 4 Date of Last Bowel Movement 02/28/18 Narrative: GENERAL: This is a well-nourished, well-developed patient, in no distress. SKIN: Warm and dry. HEENT: Normocephalic. Pupils equal round and reactive. Nose without bleeding. NECK: Trachea midline. CARDIOVASCULAR: Regular rate and rhythm without murmurs, gallops, or rubs. RESPIRATORY:Breath sounds diminished at bases. Occ Basal crackles. GASTROINTESTINAL: Abdomen soft, non-tender, nondistended. Bowel Sounds normoactive x4. MUSCULOSKELETAL: Extremities without clubbing, cyanosis, or edema. NEUROLOGICAL: Awake and alert. Oriented to place, person. No focal neuro deficit. Moves all extremities. Normal speech. Results - Labs CBC & Chem 7: 03/02/18 11:18 03/02/18 11:18 - Imaging Impressions Chest X-Ray 03/03/18 00:00 CONCLUSION: Decreased lung volumes. No other significant interval change. Persistent left greater than right lower lung zone parenchymal opacity and left pleural effusion. Assessment and Plan - Assessment (1) PNA (pneumonia) Code(s): J18.9 - Pneumonia, unspecified organism Status: Acute (2) Pneumothorax Code(s): J93.9 - Pneumothorax, unspecified Status: Acute (3) Syncope Code(s): R55 - Syncope and collapse Status: Acute (4) Intractable pain Code(s): R52 - Pain, unspecified Status: Acute - Plan 77-year-old female with a PMH of Bronchitis and Lung Mass who presented to the ER w/ c/o left-sided chest wall pain and SOB. Pt following w/ Dr. Neves as outpatient for recent discovery of lung mass, s/p Left Lung Biopsy 02/28/18 by IR , post-procedure CXR w/ tiny 4mm apical pneumothorax on left, s/p CXR x3 w/ no changes, pt ultimately d/c'd home PNA, CAP vs HAP -CTA Chest negative for PE, +LLL PNA, images reviewed. -IV Rocephin/Zithro, DuoNeb prn, monitor O2. -Will switch over to PO ABX azithro, ceftin tomorrow PTx, s/p left lung biopsy 02/28/18 by IR for lung mass, pathology pending -CXR post-procedure w/ tiny apical left pneumo 4mm, s/p CXR x3 w/ no changes -CTA w/ 12mm pneumothorax, O2 stable, monitor closely. NRM -Consult Dr. Neves for further evaluation/intervention. Appreciate recommendations. -Continue solumedrol, switch to po prednisone baltazar. Plan for CXR PA/LAT -Pain significantly improved Intractable Pain -reports severe ongoing left-sided pain at site of biopsy -steroid by Dr. Neves the mass is very near the spinal canal that it is more painful than usual biopsy -[place] 5-10, IV Dilaudid for breakthrough -Pain significantly improved Syncope -likely vagal event from severe pain, no c/o chest pain. -Check Echo LV systolic function normal, EF 60-65% -Serial cardiac enzymes negative. DVT Prophylaxis: SCD/Teds Discharge Planning: DC when clinically improved. Transition pain meds
[2018-03-03] MEDS: Azithromycin Inj 500 MG in Sodium Chlor 0.9% Inj 250 ML IV.SIG SCH (22:33)
[2018-03-04] MEDS: Senna/Docusate Sodium 8.6/50 MG Tablet PO SCH ×2 (01:48→08:11)
[2018-03-04] MEDS: Sod Chloride 0.9% Inj 1,000 ML IV.CONT SCH ×2 (02:02→10:06)
[2018-03-04] MEDS: MethylPREDNISolone Sod Succinate Inj 40 MG/ML Vial IV.PUSH SCH (07:34)
[2018-03-04 07:36] LABS: Baso % (Auto) 0.2 % (0.0-2.0); Hematocrit 38.2 % (35.0-46.0); Hemoglobin 12.7 gm/dL (11.6-15.3); Lymph # (Auto) 0.9 th/mm3 (1.0-4.8); Lymph % (Auto) 4.4 % (9.0-44.0); Mean Corpuscular HGB Conc 33.1 % (32.0-36.0); Mean Corpuscular Hemoglobin 31.6 pg (27.0-34.0); Mean Corpuscular Volume 95.3 fL (80.0-100.0); Mean Platelet Volume 8.5 fL (7.0-11.0); Mono # (Auto) 0.5 th/mm3 (0.0-0.9); Mono % (Auto) 2.4 % (0.0-8.0); Neut # (Auto) 19.1 th/mm3 (1.8-7.7); Platelet Count 338 th/mm3 (150-450); Red Blood Count 4.01 mil/mm3 (4.00-5.30); Red Cell Distribution Width 13.1 % (11.6-17.2); White Blood Count 20.6 th/mm3 (4.0-11.0)
[2018-03-04 07:42] LABS: Calcium 8.5 mg/dL (8.5-10.1); Carbon Dioxide 22.8 meq/L (21.0-32.0)
[2018-03-04 08:57] VITALS: TEMP 97.5
--- NOTE | 2018-03-04 09:58 | P.PN ---
Subjective Interval history: Follow up visit bronchitis, lung mass who came into the ER for left-sided chest wall pain and shortness of breath. Patient seen and examined today. at the bedside. States feeling a lot better. Occasional SOB and dyspnea on exertion. Otherwise, denies pain and discomfort. Denies chest pain, palpitations, headaches, dizziness. Denies fevers, chills, n/v/d. Denies dysuria. Physical Exam Vital signs: Vital Signs 03/03/18 12:19 03/03/18 15:55 03/03/18 19:00 Temperature 98.3 F 97.7 F 97.7 F Pulse Rate 98 H 82 68 Respiratory Rate 18 16 21 Blood Pressure 132/73 132/63 141/70 H Pulse Oximetry 91 L 92 L 95 03/03/18 20:00 03/04/18 00:07 03/04/18 07:51 Temperature 97.8 F 98.0 F Pulse Rate 77 69 Respiratory Rate 20 17 Blood Pressure 130/66 138/64 Pulse Oximetry 93 L 93 L 93 L 03/04/18 08:00 03/04/18 09:00 Temperature 97.5 F L Pulse Rate 67 68 Respiratory Rate 16 Blood Pressure 162/72 H Pulse Oximetry 94 L Intake & Output 03/03/18 03/04/18 03/04/18 18:59 06:59 18:59 Intake Total 1340 / 1340 350 / 350 Balance 1340 / 1340 350 / 350 Intake: IV 1100 / 1100 350 / 350 NS Inj 1,000 ML @ 100 mls/hr IV 1000 / 1000 .CONT .Q10H TED Rx#:[id number] Azithromycin Inj 500 MG In NS 250 / 250 Inj 250 ML @ 250 mls/hr IV.SIG Q24H TED Rx#:[id number] Rocephin Inj 1,000 MG In NS Inj 100 / 100 100 / 100 100 ML @ 200 mls/hr IV.SIG Q24H TED Rx#:[id number] Oral 240 / 240 Other: # Voids 2 Date of Last Bowel Movement 03/03/18 03/03/18 Narrative: GENERAL: This is a well-nourished, well-developed patient, in no distress. SKIN: Warm and dry. HEENT: Normocephalic. Pupils equal round and reactive. Nose without bleeding. NECK: Trachea midline. CARDIOVASCULAR: Regular rate and rhythm without murmurs, gallops, or rubs. RESPIRATORY:Breath sounds diminished at bases. Basal crackles. Left > Right crackles GASTROINTESTINAL: Abdomen soft, non-tender, nondistended. Bowel Sounds normoactive x4. MUSCULOSKELETAL: Extremities without clubbing, cyanosis, or edema. NEUROLOGICAL: Awake and alert. Oriented to place, person. No focal neuro deficit. Moves all extremities. Normal speech. Results - Labs CBC & Chem 7: 03/04/18 06:22 03/04/18 06:22 Laboratory Results - last 24 hr 03/04/18 03/04/18 06:22 06:22 WBC 20.6 H RBC 4.01 Hgb 12.7 Hct 38.2 MCV 95.3 MCH 31.6 MCHC 33.1 RDW 13.1 Plt Count 338 MPV 8.5 Neut % (Auto) 93.0 H Lymph % (Auto) 4.4 L [place] % (Auto) 2.4 Eos % (Auto) 0.0 Baso % (Auto) 0.2 Neut # (Auto) 19.1 H Lymph # (Auto) 0.9 L [place] # (Auto) 0.5 Eos # (Auto) 0.0 Baso # (Auto) 0.0 WBC Differential . Differential Comment Auto diff final Sodium 145 Potassium 4.0 D Chloride 114 H Carbon Dioxide 22.8 Anion Gap 8 BUN 16 Creatinine 0.82 Estimated GFR 68 L Random Glucose 135 H Calcium 8.5 - Procedures None Assessment and Plan - Assessment (1) PNA (pneumonia) Code(s): J18.9 - Pneumonia, unspecified organism Status: Acute (2) Pneumothorax Code(s): J93.9 - Pneumothorax, unspecified Status: Acute (3) Syncope Code(s): R55 - Syncope and collapse Status: Acute (4) Intractable pain Code(s): R52 - Pain, unspecified Status: Acute - Plan 77-year-old female with a PMH of Bronchitis and Lung Mass who presented to the ER w/ c/o left-sided chest wall pain and SOB. Pt following w/ Dr. Neves as outpatient for recent discovery of lung mass, s/p Left Lung Biopsy 02/28/18 by IR , post-procedure CXR w/ tiny 4mm apical pneumothorax on left, s/p CXR x3 w/ no changes, pt ultimately d/c'd home PNA, CAP vs HAP -CTA Chest negative for PE, +LLL PNA, images reviewed. -IV Rocephin/Zithro, DuoNeb prn, monitor O2. -Will switch over to PO ABX azithro, ceftin when Dcd -Walk test for O2 need PTx, s/p left lung biopsy 02/28/18 by IR for lung mass, pathology pending -CXR post-procedure w/ tiny apical left pneumo 4mm, s/p CXR x3 w/ no changes -CTA w/ 12mm pneumothorax, O2 stable, monitor closely. NRM -Consult Dr. Neves for further evaluation/intervention. Appreciate recommendations. -Continue Solumedrol IV, switch to po prednisone, taper dose when dc. -Plan for CXR PA/LAT. -Pain significantly improved Intractable Pain -reports severe ongoing left-sided pain at site of biopsy -Per Dr. Neves the mass is very near the spinal canal that it is more painful than usual biopsy -[place] 5-10, IV Dilaudid for breakthrough -Pain significantly improved Syncope -likely vagal event from severe pain, no c/o chest pain. -Check Echo LV systolic function normal, EF 60-65% -Serial cardiac enzymes negative. DVT Prophylaxis: SCD/Teds Discharge Planning: DC when clinically improved. Transition pain meds
--- NOTE | 2018-03-04 10:50 | XR ---
EXAM DATE: 03/04/2018 10:41 AM EDT AGE/SEX: 77 years / Female INDICATIONS: Evaluate for pneumonia, pneumothorax, or communicable disease. Patient with history of lung cancer who is status post recent left lung biopsy. Patient being followed for lobar consolidatio n in the left lower lobe seen on CT. CLINICAL DATA: This is the patient's sequela encounter. Patient reports that signs and symptoms have been present for > 1 year and indicates a pain score of 0/10. MEDICAL/SURGICAL HISTORY: . Cough since 2004, mass in lung, shortness of breath None. COMPARISON: [facility] – [place], CHEST 1V SINGLE AP, 03/03/2018. . FINDINGS: AP and lateral views of the chest were obtained and demonstrate interval decrease in opacity in the l eft lung. Residual consolidative opacity remains in the left lung base with blunting the costophrenic angle. There is mild blunting of the right costophrenic angle as well. The heart size remains within normal limits with no perihilar edema. The bony thorax is intact. There is no pneumothorax. CONCLUSION: 1. Interval improvement in abnormal opacity in the left lung with consolidative opacity remaining at the left lung base. 2. Small bilateral pleural effusions left greater than right. Electronically signed by: Yobany Barney MD 03/04/2018 10:48 AM EDT
[2018-03-04 13:13] VITALS: BP 166/83; PULSE 74; RESP 17; O2SAT 93
--- NOTE | 2018-03-04 14:08 | P.DS ---
Date of admission: 03/01/18 20:35 Primary care physician: Carmen Sweeney DO Attending physician on discharge: Luke Dale Anticipated date of discharge: 03/04/18 Brief History from admission: This is a 77-year-old female with a PMH of Bronchitis and Lung Mass who presented to the ER w/ c/o left-sided chest wall pain and SOB. Pt following w/ Dr. Neves as outpatient for recent discovery of lung mass, s/p Left Lung Biopsy 02/28/18 by IR, post-procedure CXR w/ tiny 4mm apical pneumothorax on left , s/p CXR x3 w/ no changes, pt ultimately d/c'd home. Returns now w/ ongoing SOB and persistent left-sided chest wall pain since last night. Pain is intermittent, sharp, severe, 10/10, associated w/ muscle spasm. While in ER, pt had apparent syncopal event as well, no c/o chest pain. On arrival, BP 141/ 69, HR 90, O2 sat 93% on RA, Afebrile. WBC 14.5. D-dimer 1.13. Chemistry essentially unremarkable. Troponin negative. CTA Chest negative for PE, interval development of lobar consolidation left lower lobe, 12 mm pneumothorax. DS: Diagnosis - Discharge Diagnosis (1) PNA (pneumonia) Status: Acute (2) Pneumothorax Status: Acute (3) Syncope Status: Acute (4) Intractable pain Status: Acute DS: Medications - Discharge Medications Prescriptions: azithromycin [Zithromax] 250 mg PO DAILY #3 tab cefuroxime axetil 500 mg PO Q12H #14 tab cyclobenzaprine 10 mg PO Q8H #15 tab hydrocodone-acetaminophen [[place]] 1 tab PO Q4H PRN 3 Days #18 tab PRN Reason: Acute Pain prednisone 0 mg PO PER PKG DIR #1 package sennosides-docusate sodium [Senna Plus] 1 tab PO BID #30 tab DS: Summary Hospital Course: 77-year-old female with a PMH of Bronchitis and Lung Mass who presented to the ER w/ c/o left-sided chest wall pain and SOB. Pt following w/ Dr. Neves as outpatient for recent discovery of lung mass, s/p Left Lung Biopsy 02/28/18 by IR , post-procedure CXR w/ tiny 4mm apical pneumothorax on left, s/p CXR x3 w/ no changes, pt ultimately d/c'd home. Patient found to have pneumonia Versus have CTA of the chest negative for PE, positive for left lower lobe pneumonia. Started on IV Rocephin, azithromycin. She was switched to azithromycin and Ceftin on discharge.PTx, s/p left lung biopsy 02/28/18 by IR for lung mass, pathology pending. She will need to follow-up the pathology and outpatient.CXR post-procedure w/ tiny apical left pneumo 4mm, s/p CXR x3 w/ no changes. CTA w / 12mm pneumothorax, O2 stable, monitor closely. [employer], followed patient during hospitalization. Started on Solu-Medrol IV switch to p.o. prednisone tapering dose on discharge. Initially when she came in she had intractable pain post biopsy site. This has been managed by pain medications. Patient will be discharged with a 3 day dose of [place] 5/325. E force has been verified. She was also reported to have a syncopal episode prior to admission most likely this is a vagal event secondary to severe pain. Her echo showed LV systolic function is normal, estimated EF 60-65%. Her serial cardiac enzymes were negative. Patient failed her walk test and will go home with oxygen. Discussed and explained with patient and family follow-up with Dr. Neves and PCP. Patient has met maximal benefits of hospitalization. Clinically stable for discharge. - Time Spent with Patient Total time spent providing and/or coordinating discharge services: Less than 30 minutes - Quality: VTE Deep Vein Thrombosis/Pulmonary Embolism Present on Admission: No Exam Vital signs: Vital Signs 03/03/18 15:55 03/03/18 19:00 03/03/18 20:00 Temperature 97.7 F 97.7 F 97.8 F Pulse Rate 82 68 77 Respiratory Rate 16 21 20 Blood Pressure 132/63 141/70 H 130/66 Pulse Oximetry 92 L 95 93 L Pulse Oximetry [Exertion on Room Air] Pulse Oximetry [Exertion with Oxygen] Pulse Oximetry [Resting on Room Air] Pulse Oximetry [Resting with Oxygen] 03/04/18 00:07 03/04/18 07:51 03/04/18 08:00 Temperature 98.0 F 97.5 F L Pulse Rate 69 67 Respiratory Rate 17 16 Blood Pressure 138/64 162/72 H Pulse Oximetry 93 L 93 L 94 L Pulse Oximetry [Exertion on Room Air] Pulse Oximetry [Exertion with Oxygen] Pulse Oximetry [Resting on Room Air] Pulse Oximetry [Resting with Oxygen] 03/04/18 09:00 03/04/18 10:25 03/04/18 12:00 Temperature 97.5 F L Pulse Rate 68 74 Respiratory Rate 17 Blood Pressure 166/83 H Pulse Oximetry 93 L Pulse Oximetry [Exertion on Room Air] 87 L Pulse Oximetry [Exertion with Oxygen] 92 L Pulse Oximetry [Resting on Room Air] 94 L Pulse Oximetry [Resting with Oxygen] 95 Intake & Output 03/03/18 03/04/18 03/04/18 18:59 06:59 18:59 Intake Total 1340 / 1340 350 / 350 1000 / 1000 Balance 1340 / 1340 350 / 350 1000 / 1000 Intake: IV 1100 / 1100 350 / 350 1000 / 1000 NS Inj 1,000 ML @ 100 mls/hr IV 1000 / 1000 1000 / 1000 .CONT .Q10H TED Rx#:[id number] Azithromycin Inj 500 MG In NS 250 / 250 Inj 250 ML @ 250 mls/hr IV.SIG Q24H TED Rx#:[id number] Rocephin Inj 1,000 MG In NS Inj 100 / 100 100 / 100 100 ML @ 200 mls/hr IV.SIG Q24H TED Rx#:[id number] Oral 240 / 240 Other: # Voids 2 Date of Last Bowel Movement 03/03/18 03/03/18 Narrative: GENERAL: This is a well-nourished, well-developed patient, in no distress. SKIN: Warm and dry. HEENT: Normocephalic. Pupils equal round and reactive. Nose without bleeding. NECK: Trachea midline. CARDIOVASCULAR: Regular rate and rhythm without murmurs, gallops, or rubs. RESPIRATORY:Breath sounds diminished at bases. Basal crackles. Left > Right crackles GASTROINTESTINAL: Abdomen soft, non-tender, nondistended. Bowel Sounds normoactive x4. MUSCULOSKELETAL: Extremities without clubbing, cyanosis, or edema. NEUROLOGICAL: Awake and alert. Oriented to place, person. No focal neuro deficit. Moves all extremities. Normal speech. Results Procedures completed during hospitalization: None Labs on day of discharge: Labs from last 24 hours 03/04/18 03/04/18 06:22 06:22 WBC 20.6 H RBC 4.01 Hgb 12.7 Hct 38.2 MCV 95.3 MCH 31.6 MCHC 33.1 RDW 13.1 Plt Count 338 MPV 8.5 Neut % (Auto) 93.0 H Lymph % (Auto) 4.4 L [place] % (Auto) 2.4 Eos % (Auto) 0.0 Baso % (Auto) 0.2 Neut # (Auto) 19.1 H Lymph # (Auto) 0.9 L [place] # (Auto) 0.5 Eos # (Auto) 0.0 Baso # (Auto) 0.0 WBC Differential . Differential Comment Auto diff final Sodium 145 Potassium 4.0 D Chloride 114 H Carbon Dioxide 22.8 Anion Gap 8 BUN 16 Creatinine 0.82 Estimated GFR 68 L Random Glucose 135 H Calcium 8.5 - Impressions ITS Impressions Chest CTA 03/01/18 15:32 CONCLUSION: 1. The study is negative for pulmonary embolism. 2. Interval development of lobar consolidation in the left lower lung. 3. There is a 12 mm collection of extra pleural gas in the anterior lower left chest in the anterior lateral costophrenic angle. Head CT 03/01/18 16:35 CONCLUSION: 1. Negative noncontrast CT brain. Chest X-Ray 03/04/18 00:00 CONCLUSION: 1. Interval improvement in abnormal opacity in the left lung with consolidative opacity remaining at the left lung base. 2. Small bilateral pleural effusions left greater than right. Discharge Plan - Discharge Disposition Patient Disposition: 01 Discharge Home - Discharge Condition Condition: Stable - Discharge Order Discharge Orders: Discharge Order (Routine); Ordered 03/04/18 Ordered By: Mihaela Hastings - Physicians Team Primary Care Provider: Carmen Sweeney Attending Provider: Luke Dale Other Providers: Timi Neves MD
--- NOTE | 2018-03-04 15:49 | P.PN ---
Subjective Interval history: She is better today and CXR has improved. No Pneumothorax. On O2 2L and needs O2 with ambulation Physical Exam Vital signs: Vital Signs 03/03/18 15:55 03/03/18 19:00 03/03/18 20:00 Temperature 97.7 F 97.7 F 97.8 F Pulse Rate 82 68 77 Respiratory Rate 16 21 20 Blood Pressure 132/63 141/70 H 130/66 Pulse Oximetry 92 L 95 93 L Pulse Oximetry [Exertion on Room Air] Pulse Oximetry [Exertion with Oxygen] Pulse Oximetry [Resting on Room Air] Pulse Oximetry [Resting with Oxygen] 03/04/18 00:07 03/04/18 07:51 03/04/18 08:00 Temperature 98.0 F 97.5 F L Pulse Rate 69 67 Respiratory Rate 17 16 Blood Pressure 138/64 162/72 H Pulse Oximetry 93 L 93 L 94 L Pulse Oximetry [Exertion on Room Air] Pulse Oximetry [Exertion with Oxygen] Pulse Oximetry [Resting on Room Air] Pulse Oximetry [Resting with Oxygen] 03/04/18 09:00 03/04/18 10:25 03/04/18 12:00 Temperature 97.5 F L Pulse Rate 68 74 Respiratory Rate 17 Blood Pressure 166/83 H Pulse Oximetry 93 L Pulse Oximetry [Exertion on Room Air] 87 L Pulse Oximetry [Exertion with Oxygen] 92 L Pulse Oximetry [Resting on Room Air] 94 L Pulse Oximetry [Resting with Oxygen] 95 Intake & Output 03/03/18 03/04/18 03/04/18 18:59 06:59 18:59 Intake Total 1340 / 1340 350 / 350 1000 / 1000 Balance 1340 / 1340 350 / 350 1000 / 1000 Intake: IV 1100 / 1100 350 / 350 1000 / 1000 NS Inj 1,000 ML @ 100 mls/hr IV 1000 / 1000 1000 / 1000 .CONT .Q10H TED Rx#:[id number] Azithromycin Inj 500 MG In NS 250 / 250 Inj 250 ML @ 250 mls/hr IV.SIG Q24H TED Rx#:[id number] Rocephin Inj 1,000 MG In NS Inj 100 / 100 100 / 100 100 ML @ 200 mls/hr IV.SIG Q24H TED Rx#:[id number] Oral 240 / 240 Other: # Voids 2 Date of Last Bowel Movement 03/03/18 03/03/18 Narrative: GENERAL: This is a well-nourished, well-developed patient, in no distress. SKIN: Warm and dry. HEENT: Normocephalic. Pupils equal round and reactive. Nose without bleeding. NECK: Trachea midline. CARDIOVASCULAR: Regular rate and rhythm without murmurs, gallops, or rubs. RESPIRATORY:Breath sounds diminished at bases. Occ Basal crackles. Left > Right crackles GASTROINTESTINAL: Abdomen soft, non-tender, nondistended. Bowel Sounds normoactive x4. MUSCULOSKELETAL: Extremities without clubbing, cyanosis, or edema. NEUROLOGICAL: Awake and alert. Oriented to place, person. No focal neuro deficit. Moves all extremities. Normal speech. Results - Labs CBC & Chem 7: 03/04/18 06:22 03/04/18 06:22 Laboratory Results - last 24 hr 03/04/18 03/04/18 06:22 06:22 WBC 20.6 H RBC 4.01 Hgb 12.7 Hct 38.2 MCV 95.3 MCH 31.6 MCHC 33.1 RDW 13.1 Plt Count 338 MPV 8.5 Neut % (Auto) 93.0 H Lymph % (Auto) 4.4 L [place] % (Auto) 2.4 Eos % (Auto) 0.0 Baso % (Auto) 0.2 Neut # (Auto) 19.1 H Lymph # (Auto) 0.9 L [place] # (Auto) 0.5 Eos # (Auto) 0.0 Baso # (Auto) 0.0 WBC Differential . Differential Comment Auto diff final Sodium 145 Potassium 4.0 D Chloride 114 H Carbon Dioxide 22.8 Anion Gap 8 BUN 16 Creatinine 0.82 Estimated GFR 68 L Random Glucose 135 H Calcium 8.5 - Imaging Impressions Chest X-Ray 03/04/18 00:00 CONCLUSION: 1. Interval improvement in abnormal opacity in the left lung with consolidative opacity remaining at the left lung base. 2. Small bilateral pleural effusions left greater than right. - Procedures None Assessment and Plan - Assessment (1) Pleural effusion Code(s): J90 - Pleural effusion, not elsewhere classified Status: Acute (2) Mass of left lung Code(s): R91.8 - Other nonspecific abnormal finding of lung field Status: Acute (3) Pneumonia Code(s): J18.9 - Pneumonia, unspecified organism Status: Acute (4) Pneumothorax after biopsy Code(s): J95.811 - Postprocedural pneumothorax Status: Acute (5) Syncope Code(s): R55 - Syncope and collapse Status: Acute (6) PNA (pneumonia) Code(s): J18.9 - Pneumonia, unspecified organism Status: Acute (7) Intractable pain Code(s): R52 - Pain, unspecified Status: Acute - Plan 1.D/C Percocet and use Tylenol 500 mg TID PRN 2. Switch to PO Ceftin 500 mg BID X7 days 3. O2 2 L at HS and with walking 4. Continue Zithromax 500 mg daily X 2 5.Home today and will F/U as OP in 1 week. Thanks. (3) Pneumonia Qualifiers: Pneumonia type: due to unspecified organism Laterality: left Lung location: lower lobe of lung Qualified Code(s): J18.1 - Lobar pneumonia, unspecified organism (5) Syncope Qualifiers: Syncope type: unspecified Qualified Code(s): R55 - Syncope and collapse
[2018-03-04] MEDS ORDERED: predniSONE 20 MG Tablet PO SCH (21:00)
== END 2018-03-04 15:43 | disposition home or self-care (01) ==
LOC: NEDA 14:30 → NEPHCDU 14:30 → NEPC 14:30 → NEPHCDU 21:25
PROVIDERS: ADMIT Internal Medicine; ATTEND Internal Medicine

== ENCOUNTER 2018-03-12 21:21 | Inpatient (IN) ==
[2018-03-12] MEDS ORDERED: Piperacil/Tazo 4.5 GM Premix 4.5 GM/100 ML BAG IV.SIG ONE (23:45)
[2018-03-12] MEDS ORDERED: Vancomycin Inj 1 GM/200 ML PIGGYBACK IV.SIG ONE (23:45)
[2018-03-12] MEDS ORDERED: Sodium Chlor 0.9% Inj 500 ML IV.SIG ONE (23:48)
--- NOTE | 2018-03-12 23:54 | ED ---
HPI General Chief complaint: Respiratory Symptoms Stated complaint: SOB Time Seen by Provider: 03/12/18 23:14 History of Present Illness HPI narrative: his is a 77-year-old lady who has had a history of left lung density for which she underwent a CT-guided needle biopsy 2 days ago, had a small pneumothorax, which was followed with serial x-rays and subsequently she was discharged on the day of the biopsy. After she went home, the patient apparently could not sleep due to severe pain along the lower chest and back. She was also short of breath and thus was brought back to the emergency room. The patient was on oral antibiotics as well as oral prednisone 2 week and was on Zithromax 250 mg daily for 5 days. She has not been on any pain medication but since the biopsy her pain was so severe that she had to receive pain medications and thus was seen in the emergency room and a chest x-ray that was done showed only a tiny left pneumothorax. She was given morphine, which did not relieve the pain and subsequently Percocet did control her pain. She wasadmitted, placed on oxygen and a CT scan of the chest showed no evidence of pulmonary emboli, a consolidation in the left lower lobe. Patient went home on Ceftin prednisone and HFA inhaler now it is getting worse had a CT done as an outpatient Dr. Timi Adams the radiologist called and said it is getting worse come to the ER. Apparently from the CT report now of the pneumonia is spreading up into the lingula left upper lobe and effusion is getting worse. She is failing outpatient p.o. once again I will start her on Vanco and Zosyn she will need ID consult. He main complaint worsening pain in her left lower rib area and worsening cough and SOB home hydrocodeone is not alleviating her Sx , Failed PO ceftin Related Data Previous Rx's Medication Instructions Recorded cyclobenzaprine 10 mg PO Q8H #15 tab 03/04/18 amoxicillin-pot clavulanate 1 tab PO Q12HR 14 Days tab 03/18/18 [Augmentin] diphenhydramine HCl 25 mg PO Q6H PRN cap 03/18/18 Allergies Allergy/AdvReac Type Severity Reaction Status Date / Time No Known Allergies Allergy Verified 03/13/18 00:19 Review of Systems Except as stated in HPI: all other systems reviewed are negative [facility] Social History Social History Substance History: No History of Abuse Second Hand Smoke Exposure: No Smoking Status: Former smoker Tobacco Type: Cigarettes How Often Do You Have a Drink Containing Alcohol: 4 or more times a week Recent Travel in [facility] within the Last 8 Weeks: No Recent Out of Country Travel within the Last 8 Weeks: No Exam Narrative Exam Narrative: GENERAL: appears to be in pain and very apprehensive about her current condition SKIN: Warm and dry. HEAD: Atraumatic. Normocephalic. EYES: Pupils equal and round. No scleral icterus. No injection or drainage. ENT: No nasal bleeding or discharge. Mucous membranes pink and moist. NECK: Trachea midline. No JVD. CARDIOVASCULAR: Regular rate and rhythm. RESPIRATORY: No accessory muscle use. Clear to auscultation. Breath sounds equal bilaterally. CHEST lower ribs on left wearing a support and extremely tender GASTROINTESTINAL: Abdomen soft, non-tender, nondistended. Hepatic and splenic margins not palpable. MUSCULOSKELETAL: Extremities without clubbing, cyanosis, or edema. No obvious deformities. NEUROLOGICAL: Awake and alert. No obvious cranial nerve deficits. Motor grossly within normal limits. Five out of 5 muscle strength in the arms and legs. Normal speech. PSYCHIATRIC: Appropriate mood and affect; insight and judgment normal. Course Initial Documented Vital Signs Temperature 97.7 F 03/12/18 22:40 Pulse Rate 80 03/12/18 22:40 Respiratory Rate 18 03/12/18 22:40 Blood Pressure 134/73 03/12/18 22:40 Pulse Oximetry 96 03/12/18 22:40 Last Documented Vital Signs Temperature 96.6 F L 03/18/18 08:00 Pulse Rate 89 03/18/18 08:00 Respiratory Rate 17 03/18/18 08:00 Blood Pressure 127/78 03/18/18 08:00 Pulse Oximetry 91 L 03/18/18 08:00 Medical Decision Making MDM Narrative Medical decision making narrative: CT i was able to review from her visit to [facility] shows worsening Pleural effusion now effecting the lingula lobe and not responding to ceftin needs IV vanco zosyn and admitted Lab Data Result diagrams: 03/17/18 06:26 03/17/18 09:29 Lab Results 03/13/18 03/13/18 03/13/18 Range/Units 00:35 00:35 12:15 WBC 13.7 H (4.0-11.0) th/mm3 RBC 4.45 (4.00-5.30) mil/mm3 Hgb 14.5 (11.6-15.3) gm/dL Hct 43.0 (35.0-46.0) % MCV 96.6 (80.0-100.0) fL MCH 32.5 (27.0-34.0) pg MCHC 33.7 (32.0-36.0) % RDW 13.2 (11.6-17.2) % Plt Count 336 (150-450) th/mm3 MPV 7.6 (7.0-11.0) fL Neut % (Auto) 71.2 H (16.0-70.0) % Lymph % (Auto) 16.6 (9.0-44.0) % [place] % (Auto) 7.6 (0.0-8.0) % Eos % (Auto) 4.0 (0.0-4.0) % Baso % (Auto) 0.6 (0.0-2.0) % Neut # (Auto) 9.7 H (1.8-7.7) th/mm3 Lymph # (Auto) 2.3 (1.0-4.8) th/mm3 [place] # (Auto) 1.0 H (0.0-0.9) th/mm3 Eos # (Auto) 0.5 H (0.0-0.4) th/mm3 Baso # (Auto) 0.1 (0.0-0.2) th/mm3 WBC Differential . Differential Comment Auto diff final Hematology Comments PT 10.5 (9.8-11.6) sec INR 1.0 Ratio APTT (24.3-30.1) sec Sodium 136 (136-145) meq/L Potassium 4.2 (3.5-5.1) meq/L Chloride 101 (98-107) meq/L Carbon Dioxide 27.6 (21.0-32.0) meq/L Anion Gap 7 (5-15) meq/L BUN 13 (7-18) mg/dL Creatinine 1.09 H (0.50-1.00) mg/dL Estimated GFR 49 L (>89) mL/min Random Glucose 115 H (74-106) mg/dL Lactic Acid (0.4-2.0) mmol/L Calcium 8.9 (8.5-10.1) mg/dL Phosphorus (2.5-4.9) mg/dL Total Bilirubin 0.6 (0.2-1.0) mg/dL AST 8 L (15-37) U/L ALT 48 (10-53) U/L Alkaline Phosphatase 96 (45-117) U/L Total Protein 7.5 (6.4-8.2) g/dL Albumin 3.0 L (3.4-5.0) g/dL Procalcitonin (0.00-0.08) ng/mL Vancomycin Trough (5.0-10.0) mcg/mL Blood Type Blood Type Recheck Antibody Screen MTS Gel Crossmatch 03/13/18 03/13/18 03/13/18 Range/Units 12:15 12:15 12:15 WBC (4.0-11.0) th/mm3 RBC (4.00-5.30) mil/mm3 Hgb (11.6-15.3) gm/dL Hct (35.0-46.0) % MCV (80.0-100.0) fL MCH (27.0-34.0) pg MCHC (32.0-36.0) % RDW (11.6-17.2) % Plt Count (150-450) th/mm3 MPV (7.0-11.0) fL Neut % (Auto) (16.0-70.0) % Lymph % (Auto) (9.0-44.0) % [place] % (Auto) (0.0-8.0) % Eos % (Auto) (0.0-4.0) % Baso % (Auto) (0.0-2.0) % Neut # (Auto) (1.8-7.7) th/mm3 Lymph # (Auto) (1.0-4.8) th/mm3 [place] # (Auto) (0.0-0.9) th/mm3 Eos # (Auto) (0.0-0.4) th/mm3 Baso # (Auto) (0.0-0.2) th/mm3 WBC Differential Differential Comment Hematology Comments PT (9.8-11.6) sec INR Ratio APTT 26.6 (24.3-30.1) sec Sodium (136-145) meq/L Potassium (3.5-5.1) meq/L Chloride (98-107) meq/L Carbon Dioxide (21.0-32.0) meq/L Anion Gap (5-15) meq/L BUN (7-18) mg/dL Creatinine (0.50-1.00) mg/dL Estimated GFR (>89) mL/min Random Glucose (74-106) mg/dL Lactic Acid 1.0 (0.4-2.0) mmol/L Calcium (8.5-10.1) mg/dL Phosphorus (2.5-4.9) mg/dL Total Bilirubin (0.2-1.0) mg/dL AST (15-37) U/L ALT (10-53) U/L Alkaline Phosphatase (45-117) U/L Total Protein (6.4-8.2) g/dL Albumin (3.4-5.0) g/dL Procalcitonin 0.09 H (0.00-0.08) ng/mL Vancomycin Trough (5.0-10.0) mcg/mL Blood Type Blood Type Recheck Antibody Screen MTS Gel Crossmatch 03/13/18 03/14/18 03/14/18 Range/Units 17:16 12:35 12:35 WBC 13.4 H (4.0-11.0) th/mm3 RBC 3.89 L (4.00-5.30) mil/mm3 Hgb 12.5 D (11.6-15.3) gm/dL Hct 38.0 (35.0-46.0) % MCV 97.7 (80.0-100.0) fL MCH 32.1 (27.0-34.0) pg MCHC 32.9 (32.0-36.0) % RDW 13.7 (11.6-17.2) % Plt Count 285 (150-450) th/mm3 MPV 7.7 (7.0-11.0) fL Neut % (Auto) 88.2 H (16.0-70.0) % Lymph % (Auto) 5.9 L (9.0-44.0) % [place] % (Auto) 4.4 (0.0-8.0) % Eos % (Auto) 1.2 (0.0-4.0) % Baso % (Auto) 0.3 (0.0-2.0) % Neut # (Auto) 11.8 H (1.8-7.7) th/mm3 Lymph # (Auto) 0.8 L (1.0-4.8) th/mm3 [place] # (Auto) 0.6 (0.0-0.9) th/mm3 Eos # (Auto) 0.2 (0.0-0.4) th/mm3 Baso # (Auto) 0.0 (0.0-0.2) th/mm3 WBC Differential . Differential Comment Auto diff final Hematology Comments PT (9.8-11.6) sec INR Ratio APTT (24.3-30.1) sec Sodium 139 (136-145) meq/L Potassium 4.5 (3.5-5.1) meq/L Chloride 107 (98-107) meq/L Carbon Dioxide 24.4 (21.0-32.0) meq/L Anion Gap 8 (5-15) meq/L BUN 8 (7-18) mg/dL Creatinine 0.73 (0.50-1.00) mg/dL Estimated GFR 78 L (>89) mL/min Random Glucose 101 (74-106) mg/dL Lactic Acid (0.4-2.0) mmol/L Calcium 8.6 (8.5-10.1) mg/dL Phosphorus (2.5-4.9) mg/dL Total Bilirubin 0.3 (0.2-1.0) mg/dL AST 15 (15-37) U/L ALT 35 (10-53) U/L Alkaline Phosphatase 78 (45-117) U/L Total Protein 6.3 L D (6.4-8.2) g/dL Albumin 2.3 L D (3.4-5.0) g/dL Procalcitonin (0.00-0.08) ng/mL Vancomycin Trough (5.0-10.0) mcg/mL Blood Type A Positive Blood Type Recheck Antibody Screen Negative MTS Gel Crossmatch See Detail 03/15/18 03/16/18 03/17/18 Range/Units 14:43 04:20 06:26 WBC 11.8 H 6.7 (4.0-11.0) th/mm3 RBC 4.00 3.69 L (4.00-5.30) mil/mm3 Hgb 12.7 11.8 (11.6-15.3) gm/dL Hct 38.6 35.5 (35.0-46.0) % MCV 96.4 96.2 (80.0-100.0) fL MCH 31.7 32.1 (27.0-34.0) pg MCHC 32.9 33.4 (32.0-36.0) % RDW 13.6 13.6 (11.6-17.2) % Plt Count 294 314 (150-450) th/mm3 MPV 7.8 8.2 (7.0-11.0) fL Neut % (Auto) 65.0 (16.0-70.0) % Lymph % (Auto) 19.4 (9.0-44.0) % [place] % (Auto) 8.1 H (0.0-8.0) % Eos % (Auto) 6.6 H (0.0-4.0) % Baso % (Auto) 0.9 (0.0-2.0) % Neut # (Auto) 4.3 (1.8-7.7) th/mm3 Lymph # (Auto) 1.3 (1.0-4.8) th/mm3 [place] # (Auto) 0.5 (0.0-0.9) th/mm3 Eos # (Auto) 0.4 (0.0-0.4) th/mm3 Baso # (Auto) 0.1 (0.0-0.2) th/mm3 WBC Differential . Differential Comment Auto diff final Hematology Comments PT (9.8-11.6) sec INR Ratio APTT (24.3-30.1) sec Sodium (136-145) meq/L Potassium (3.5-5.1) meq/L Chloride (98-107) meq/L Carbon Dioxide (21.0-32.0) meq/L Anion Gap (5-15) meq/L BUN (7-18) mg/dL Creatinine (0.50-1.00) mg/dL Estimated GFR (>89) mL/min Random Glucose (74-106) mg/dL Lactic Acid (0.4-2.0) mmol/L Calcium (8.5-10.1) mg/dL Phosphorus (2.5-4.9) mg/dL Total Bilirubin (0.2-1.0) mg/dL AST (15-37) U/L ALT (10-53) U/L Alkaline Phosphatase (45-117) U/L Total Protein (6.4-8.2) g/dL Albumin (3.4-5.0) g/dL Procalcitonin (0.00-0.08) ng/mL Vancomycin Trough 10.8 H (5.0-10.0) mcg/mL Blood Type Blood Type Recheck Antibody Screen MTS Gel Crossmatch 03/17/18 Range/Units 09:29 WBC (4.0-11.0) th/mm3 RBC (4.00-5.30) mil/mm3 Hgb (11.6-15.3) gm/dL Hct (35.0-46.0) % MCV (80.0-100.0) fL MCH (27.0-34.0) pg MCHC (32.0-36.0) % RDW (11.6-17.2) % Plt Count (150-450) th/mm3 MPV (7.0-11.0) fL Neut % (Auto) (16.0-70.0) % Lymph % (Auto) (9.0-44.0) % [place] % (Auto) (0.0-8.0) % Eos % (Auto) (0.0-4.0) % Baso % (Auto) (0.0-2.0) % Neut # (Auto) (1.8-7.7) th/mm3 Lymph # (Auto) (1.0-4.8) th/mm3 [place] # (Auto) (0.0-0.9) th/mm3 Eos # (Auto) (0.0-0.4) th/mm3 Baso # (Auto) (0.0-0.2) th/mm3 WBC Differential Differential Comment Hematology Comments PT (9.8-11.6) sec INR Ratio APTT (24.3-30.1) sec Sodium 142 (136-145) meq/L Potassium 3.7 (3.5-5.1) meq/L Chloride 105 (98-107) meq/L Carbon Dioxide 27.0 (21.0-32.0) meq/L Anion Gap 10 (5-15) meq/L BUN 6 L (7-18) mg/dL Creatinine 0.85 (0.50-1.00) mg/dL Estimated GFR 65 L (>89) mL/min Random Glucose 86 (74-106) mg/dL Lactic Acid (0.4-2.0) mmol/L Calcium 9.0 (8.5-10.1) mg/dL Phosphorus 3.6 (2.5-4.9) mg/dL Total Bilirubin (0.2-1.0) mg/dL AST (15-37) U/L ALT (10-53) U/L Alkaline Phosphatase (45-117) U/L Total Protein (6.4-8.2) g/dL Albumin 2.2 L (3.4-5.0) g/dL Procalcitonin (0.00-0.08) ng/mL Vancomycin Trough (5.0-10.0) mcg/mL Blood Type Blood Type Recheck Antibody Screen MTS Gel Crossmatch Imaging Data Radiologist's impression: Chest X-Ray 03/14/18 10:01 CONCLUSION: Chest tube in place without evidence for pneumothorax. Chest X-Ray 03/16/18 00:00 CONCLUSION: Left-sided chest tube in good position with no pneumothorax. Chest X-Ray 03/18/18 00:00 CONCLUSION: Interval removal of chest tube. No evidence of pneumothorax. Discharge Plan Discharge Disposition Patient Disposition: Discharge Home Discharge Condition Condition: Stable Discharge Order Discharge Orders: Discharge Order (Routine); Ordered 03/18/18 Ordered By: Quynh Thompson Discharge Details Anticipated Discharge Date: 03/18/18 Physicians Team ED Provider: Juvenal Garcia Primary Care Provider: UNKNOWN, Attending Provider: Quynh Thompson Other Providers: Timi Wilson V ; Jerry Dominguez ; Breanna Landin Status ED Status: Left Department Discharge Information Discharge Date/Time: 03/13/18 03:15
[2018-03-13 01:13] LABS: Baso # (Auto) 0.1 th/mm3 (0.0-0.2); Baso % (Auto) 0.6 % (0.0-2.0); Eos # (Auto) 0.5 th/mm3 (0.0-0.4); Hemoglobin 14.5 gm/dL (11.6-15.3); Lymph # (Auto) 2.3 th/mm3 (1.0-4.8); Lymph % (Auto) 16.6 % (9.0-44.0); Mean Corpuscular HGB Conc 33.7 % (32.0-36.0); Mean Corpuscular Hemoglobin 32.5 pg (27.0-34.0); Mean Corpuscular Volume 96.6 fL (80.0-100.0); Mean Platelet Volume 7.6 fL (7.0-11.0); Mono % (Auto) 7.6 % (0.0-8.0); Neut # (Auto) 9.7 th/mm3 (1.8-7.7); Neut % (Auto) 71.2 % (16.0-70.0); Platelet Count 336 th/mm3 (150-450); Red Blood Count 4.45 mil/mm3 (4.00-5.30); Red Cell Distribution Width 13.2 % (11.6-17.2); White Blood Count 13.7 th/mm3 (4.0-11.0)
[2018-03-13 01:28] LABS: Alanine Aminotransferase 48 U/L (10-53); Anion Gap 7 meq/L (5-15); Aspartate Aminotransferase 8 U/L (15-37); Blood Urea Nitrogen 13 mg/dL (7-18); Calcium 8.9 mg/dL (8.5-10.1); Carbon Dioxide 27.6 meq/L (21.0-32.0); Chloride 101 meq/L (98-107); Glomerular Filtration Rate 49 mL/min (>89); Glucose,Random 115 mg/dL (74-106); Potassium 4.2 meq/L (3.5-5.1); Sodium 136 meq/L (136-145)
[2018-03-13 01:30] LABS: Alkaline Phosphatase 96 U/L (45-117); Total Protein 7.5 g/dL (6.4-8.2)
[2018-03-13] MEDS ORDERED: Vancomycin Consult Pharmacy 1 EACH OTHER SCH (01:33)
[2018-03-13] MEDS ORDERED: Temazepam 15 MG Capsule PO PRN (01:34)
[2018-03-13] MEDS ORDERED: Bisacodyl 10 MG Supp RECTAL PRN (01:34)
[2018-03-13] MEDS ORDERED: Vancomycin Inj 1,000 MG in Sodium Chlor 0.9% Inj 250 ML IV.SIG ONE (02:00)
--- NOTE | 2018-03-13 04:47 | P.HPIM ---
History of Present Illness Primary Care Physician: UNKNOWN History of Present Illness: 77-year-old female with a history of bronchitis, lung mass, left lung biopsy , with subsequent pneumothorax, recently discharged on 03/04. She presents with a 3 day history of progressively worsening shortness of breath, cough productive of minimal sputum. Reports pleuritic left-sided chest pain. Chest x -ray done as outpatient today reportedly shows worsening left lower lobe pneumonia which patient was told to return back to the hospital. She denies any fevers, chills. She does report progressively worsening fatigue however. Inpatient Certification: I certify that the inpatient services were ordered in accordance with Medicare regulations governing the order. This includes certification that hospital inpatient services are reasonable and necessary and in the case of services not specified as inpatient-only under 42 CFR 419.22(n), that they are appropriately provided as inpatient services in accordance to with the 2-midnight benchmark under 43 CFR 412.3(e) Estimated Total Length of Stay (Days): 3 Plans for Post Hospital Care: Not yet determined Review of Systems All other systems reviewed negative except as stated in HPI [facility] - History History Provided By: Patient - Medical History Medical History: Medical History (Last Reviewed 03/13/18 @ 04:10 by Yeni Howe RN) GERD (gastroesophageal reflux disease) (Acute) Hx of smoking (Acute) Bronchitis (Acute) - Surgical History Surgical History: Surgical History (Last Reviewed 03/13/18 @ 04:11 by Yeni Howe RN) History of bladder suspension procedure (Acute) - Family History Family History: Family History (Last Reviewed 03/01/18 @ 15:59 by GREGORIO Rodney) Father Family history of cancer Mother Family history of cancer Family history of hypertension Sister Family history of cancer Brother Family history of cancer - Tobacco History Second Hand Smoke Exposure: No Tobacco Use In Past 30 Days: No Smoking Status: Former smoker Tobacco Type: Cigarettes - Alcohol History How Often Do You Have a Drink Containing Alcohol: 4 or more times a week - Substance Use History Substance History: No History of Abuse - Travel History Recent Travel in the [place] Within the Last 8 Weeks: No Recent Travel Out of the Country Within the Last 8 Weeks: No - Immunization History Tetanus Immunization: <5 Years Hx Influenza Vaccine This Season: Yes Medications and Allergies Active Medications: Active Medications Al Hydroxide/Mg Hydroxide (Milk Of Magnesia Liq) 30 ml PO Q12H PRN PRN Reason: Mild Constipation Albuterol (Duoneb Neb (Prn)) 1 ampul NEB Q2HR NEB PRN PRN Reason: SHORTNESS OF BREATH/WHEEZING Albuterol (Duoneb Neb (Myrna)) 1 ampul NEB Q6HR ALT NEB MYRNA Bisacodyl (Dulcolax Supp) 10 mg RECTAL DAILY PRN PRN Reason: SEVERE CONSITIPATION Pharmacy Profile Note (Vancomycin Consult Pharmacy) 0 mls @ 0 mls/hr OTHER UNSCH MYRNA Piperacillin/Tazobactam/Dextrose (Zosyn 4.5 Gm Premix) 4.5 gm in 100 mls @ 200 mls/hr IV.SIG Q6H MYRNA Lactulose (Lactulose Liq) 30 ml PO DAILY PRN PRN Reason: SEVERE CONSITIPATION Sennosides (Senokot) 17.2 mg PO Q12H PRN PRN Reason: Moderate Constipation Temazepam (Restoril) 15 mg PO HS PRN PRN Reason: INSOMNIA Allergies Allergy/AdvReac Type Severity Reaction Status Date / Time No Known Allergies Allergy Verified 03/13/18 00:19 Home Medications Medication Instructions Recorded Confirmed Type hydrocodone-acetaminophen [[place]] 1 tab PO Q4H PRN 03/13/18 03/13/18 History Exam Vital signs: Vital Signs 03/12/18 22:40 03/12/18 23:15 03/13/18 00:03 Temperature 97.7 F Pulse Rate 80 78 60 Respiratory Rate 18 22 15 Blood Pressure 134/73 107/59 L Pulse Oximetry 96 97 03/13/18 02:35 03/13/18 03:42 Temperature 97.7 F Pulse Rate 61 101 H Respiratory Rate 18 17 Blood Pressure 105/59 L 114/74 Pulse Oximetry 95 93 L Intake & Output 03/12/18 03/12/18 03/13/18 06:59 18:59 06:59 Intake Total 500 / 500 Balance 500 / 500 Weight 73.028 kg Intake: IV 500 / 500 NS Inj 500 ML @ Wide Open IV. 500 / 500 SIG BOLUS ONE Rx#:[id number] Narrative: GENERAL: Patient sitting up in bed. Appears uncomfortable. Alert and oriented 3. SKIN: Warm and dry. HEAD: Atraumatic. Normocephalic. EYES: Pupils equal and round. No scleral icterus. No injection or drainage. ENT: No nasal bleeding or discharge. Mucous membranes pink and moist. NECK: Trachea midline. No JVD. CARDIOVASCULAR: Regular rate and rhythm. RESPIRATORY: No accessory muscle use. Clear to auscultation. Breath sounds decreased on the left base. GASTROINTESTINAL: Abdomen soft, non-tender, nondistended. Hepatic and splenic margins not palpable. MUSCULOSKELETAL: Extremities without clubbing, cyanosis, or edema. No obvious deformities. NEUROLOGICAL: Awake and alert. No obvious cranial nerve deficits. Motor grossly within normal limits. Five out of 5 muscle strength in the arms and legs. Normal speech. PSYCHIATRIC: Appropriate mood and affect; insight and judgment normal. Results - Labs CBC & Chem 7: 03/13/18 00:35 03/13/18 00:35 Labs: Short CBC 03/13/18 Range/Units 00:35 WBC 13.7 H (4.0-11.0) th/mm3 Hgb 14.5 (11.6-15.3) gm/dL Hct 43.0 (35.0-46.0) % Plt Count 336 (150-450) th/mm3 BMP 03/13/18 00:35 Sodium 136 Potassium 4.2 Chloride 101 Carbon Dioxide 27.6 BUN 13 Creatinine 1.09 H Calcium 8.9 Liver Function 03/13/18 Range/Units 00:35 Total Bilirubin 0.6 (0.2-1.0) mg/dL AST 8 L (15-37) U/L ALT 48 (10-53) U/L Alkaline Phosphatase 96 (45-117) U/L Albumin 3.0 L (3.4-5.0) g/dL Caprini VTE Risk Assessment Caprini VTE Risk Assessment: Moderate/High Risk (score >= 2) Caprini Risk Assessment Model: Point Value = 1 Point Value = 2 Point Value = 3 Point Value = 5 Age 41-60 Minor surgery BMI > 25 kg/m2 Swollen legs Varicose veins or History of unexplained or recurrent spontaneous Oral contraceptives or hormone replacement Sepsis (< 1 month) Serious lung disease, including pneumonia (< 1 month) Abnormal pulmonary function Acute myocardial infarction Congestive heart failure (< 1 month) History of inflammatory bowel disease Medical patient at bed rest Age 61-74 Arthroscopic surgery Major open surgery (> 45 min) Laparoscopic surgery (> 45 min) Malignancy Confined to bed (> 72 hours) Immobilizing plaster cast Central venous access Age >= 75 History of VTE Family history of VTE Factor V Leiden Prothrombin [id number] Lupus anticoagulant Anticardiolipin antibodies Elevated serum homocysteine Heparin-induced thrombocytopenia Other congenital or acquired thrombophilia Stroke (< 1 month) Elective arthroplasty Hip, pelvis, or leg fracture Acute spinal cord injury (< 1 month) Prophylaxis Regimen: Total Risk Factor Score Risk Level Prophylaxis Regimen 0-1 Low Early ambulation 2 Moderate Order ONE of the following: *Sequential Compression Device (SCD) *Heparin 5000 units SQ BID 3-4 Higher Order ONE of the following medications: *Heparin 5000 units SQ TID *Enoxaparin/Lovenox 40 mg SQ daily (WT < 150 kg, CrCl > 30 mL/min) *Enoxaparin/Lovenox 30 mg SQ daily (WT < 150 kg, CrCl > 10-29 mL/min) *Enoxaparin/Lovenox 30 mg SQ BID (WT < 150 kg, CrCl > 30 mL/min) AND/OR *Sequential Compression Device (SCD) 5 or more Highest Order ONE of the following medications: *Heparin 5000 units SQ TID (Preferred with Epidurals) *Enoxaparin/Lovenox 40 mg SQ daily (WT < 150 kg, CrCl > 30 mL/min) *Enoxaparin/Lovenox 30 mg SQ daily (WT < 150 kg, CrCl > 10-29 mL/min) *Enoxaparin/Lovenox 30 mg SQ BID (WT < 150 kg, CrCl > 30 mL/min) AND *Sequential Compression Device (SCD) Assessment and Plan - Plan //Sepsis. With leukocytosis, tachycardia, left lower lobe pneumonia. //Left lower lobe pneumonia. = Failed course of outpatient treatment with Ceftin. = Outside chest x-ray discussed with ER physician who is able to pull up exam and visualized. =Broad-spectrum antibiotics started. = Pain control. Duo nebs, consult pulmonology. Discussed Condition With: Patient, nurse, ED physician. H&P: Quality - VTE Deep Vein Thrombosis/Pulmonary Embolism Present on Admission: No
[2018-03-13] MEDS: Piperacil/Tazo 4.5 GM Premix 4.5 GM/100 ML BAG IV.SIG SCH ×3 (06:05→18:15)
[2018-03-13] MEDS ORDERED: Morphine Inj 4 MG/ML Vial IV.PUSH PRN ×2 (08:06→19:41)
--- NOTE | 2018-03-13 12:00 | MB ---
cc: Guanako Neves MD DATE: 03/13/2018 REASON FOR CONSULTATION: Pneumonia and pleural effusion. HISTORY OF PRESENT ILLNESS: This is a 77-year-old lady who has had a persistent cough for over 3 weeks, had a mass-like density in the left lower lobe, which was showing significant uptake on a PET scan and so subsequently went for a CT-guided needle biopsy of the mass on 02/28/2018. The patient postoperatively developed a pneumothorax and had severe pain along the left lower chest, which gradually worsened, but was treated with IV antibiotics and analgesics and was discharged 2 days later and was doing fairly well up until 3 days ago when she started to have more chest pain upon taking deep breaths and a chest x-ray as outpatient showed some worsening of the left basilar pneumonia and a CT of the chest that was repeated yesterday showed a loculated pleural effusion in the left base, as well as worsening of the left basilar pneumonia with more atelectasis in the left base and thus she was admitted and started on IV Zosyn and vancomycin. The patient still has pain upon taking deep breaths. She has a cough. She has some wheezing and she has no fevers or chills. PAST MEDICAL HISTORY: As mentioned before, history for gastroesophageal reflux, history of chronic bronchitis and persistent cough. PAST SURGICAL HISTORY: Previous history for colonoscopy and bronchoscopy, history for bladder suspension procedure in the past, as well as a lung biopsy that was done 10 days ago. FAMILY HISTORY: Significant for cancer in her sister. One brother is well and the mother. HABITS: The patient drinks alcohol occasionally. No significant smoking presently, but in the past smoked for over 15 years. ALLERGIES: NO DRUG ALLERGIES ARE LISTED. REVIEW OF SYSTEMS: The patient has pain in the lower back and some nausea. She has epigastric distress and she has no night sweats, fevers, or chills. She has had some weight loss recently. She has some anxiety attacks and she has joint pains. No leg swelling. The patient has constipation. The other system review is negative. PHYSICAL EXAMINATION: GENERAL: This is an averagely built, elderly lady who is alert, pale and mildly dyspneic at rest. No clubbing or peripheral edema. No lymphadenopathy. VITAL SIGNS: Blood pressure 110/60, pulse is 65, respirations are 18, temperature 98. HEAD: Normocephalic. EYES: Pupils are reactive and equal. ENT: Tongue is dry. Throat is injected. Nasal mucosa is clear. NECK: Supple, no bruits, lymphadenopathy or thyromegaly. CHEST: Decreased breath sounds over the left lower chest with occasional crackles in the left base. Wheezes were scattered. HEART: Sounds were regular, S1 and S2. No murmur. ABDOMEN: Soft and mildly tender in the upper abdomen. Bowel sounds were active. No organomegaly. EXTREMITIES: No lesions, no edema, no calf tenderness. Reflexes are 1+ with no gross motor deficits. NEUROLOGIC: Cranial nerves are grossly intact. SKIN: No lesions observed. IMPRESSIONS: 1. Persistent left lower lobe pneumonia. 2. Left pleural effusion, rule out empyema. 3. Left lower lobe lung mass density. 4. Chronic obstructive pulmonary disease. PLAN: The patient will be given Follansbee for pain 7.5 mg q. 6 hours p.r.n. Continue with vancomycin 1 gram IV every 12 hours and Zosyn 3.375 g IV daily and DuoNeb solution q.i.d. The patient will be given O2 at 2 liters nasal cannula. We will get a thoracic surgery consult for possible decortication, as well as a biopsy of the left lower lobe lesion with a VATS thoracoscopy and a bronchoscopy as well. Discussed all these thoughts with the and the patient here. Thank you for this consultation. Guanako Neves MD VJD/DL , 11:35 AM , 11:48 AM
[2018-03-13 12:45] LABS: Prothrombin Time 10.5 sec (9.8-11.6)
[2018-03-13] MEDS: Dextrose 5%/NaCl 0.45% Inj 1,000 ML IV.SIG SCH (14:11)
--- NOTE | 2018-03-13 15:20 | MB ---
cc: Aziza Curtis Jacqueline R ARNP DATE: 03/13/2018 DATE OF : 1940 HISTORY OF PRESENT ILLNESS: A 77-year-old female who has been having presentation with cough, no fevers, ongoing for about 5 weeks. She actually was worked up at [facility] in 2007 for chronic cough, had a complete workup. They put her on Prilosec and thought that this was due to reflux. She did fairly well after but then developed this persistent cough. She denied having any hemoptysis. No recent weight gain or weight loss. She was seen by Dr. Neves who ordered a CT-guided needle biopsy after there was a mass-like density in the left lower lobe. She had this CT-guided biopsy on 02/28/2018. Postoperatively, she did develop a small pneumothorax and had severe pain in the left lower chest with gradual worsened. She was treated initially with some IV antibiotics. The pneumothorax resolved on its own. She was discharged 2 days later and was doing fairly well when she started to have increasing pain on deep inspiration and a chest x-ray showed worsening left basilar pneumonia. A CT chest was done at [place] which showed a moderate loculated left pleural effusion. There was also some mild atelectatic change of the right lower lung. There was increased size of left pleural fluid, conspicuous areas of loculation laterally, anteromedially and posteromedially, without evidence of empyema. They did not send fluid for cultures after the CT-guided biopsy; however, the pathology report did read acute suppurative and chronic organizing pneumonia with abscess formed in alveolar lining, hyperplasia, no malignancy. Please note, she also had a pre-PET scan that showed significant uptake, so therefore the CT-guided biopsy was ordered. The patient has not had any improvement. She was also discharged with Ceftin. She currently complains of shortness of breath with exertion, continued dry cough, occasional wheezing. The pain is more prominent with deep inspiration and again with cough. PAST MEDICAL HISTORY: Gastroesophageal reflux disease, history of chronic bronchitis, persistent cough. PAST SURGICAL HISTORY: Include colonoscopy, bronchoscopy, history of bladder suspension in the past and recent lung biopsy on 02/28/2018. ALLERGIES: THE PATIENT HAS NO KNOWN ALLERGIES. HOME MEDICATIONS: [place] and Flexeril. FAMILY HISTORY: Significant for her brother, at 70 from renal carcinoma with metastasis, a sister who from brain cancer. The mother with a history of breast cancer. The father from liver cancer. SOCIAL HISTORY: The patient is with 4 children. Occasional glass of wine. Had smoked for about 8 years, half a pack. No tobacco for over 15 years. Normally fairly active, walks 2 miles 5 times a week. REVIEW OF SYSTEMS: As in the HPI. No recent night sweats, fevers or chills. No weight gain. No weight loss. No hemoptysis. PHYSICAL EXAMINATION: VITAL SIGNS: Blood pressure 130/60, heart rate of 70, afebrile. GENERAL: The patient is awake, alert, in no acute distress. HEENT: Head is normocephalic, atraumatic. Pupils are equal and reactive. Oral mucosa: [place], moist. NECK: Supple. No JVD. HEART SOUNDS: S1, S2. LUNGS: Diminished breath sounds over the left lower lobe with bibasilar crackles, left worse than the right. CARDIOVASCULAR: Heart sounds S1, S2. Regular rate and rhythm. No audible rubs, murmurs or gallops. EXTREMITIES: No cyanosis, clubbing or edema. No lesions. SKIN: No rash. NEUROLOGIC: Cranial nerves 2-12 intact. No focal deficits. RADIOLOGICAL EXAMS: As above. LABORATORY DATA: Shows hemoglobin 14, hematocrit of 43. White cell count of 13, platelet count of 336. INR 1.0. Chemistry reveals a sodium of 136, potassium 4.2, BUN of 13, creatinine 1.09. IMPRESSION: CT resulted as above in the HPI. IMPRESSION: Persistent left lower lobe pneumonia with a CT scan showing moderate loculated pleural effusion. PLAN: Pulmonology requesting Cardiothoracic Surgery to evaluate for possible left video-assisted thoracoscopy, possible decortication and possible repeat lung biopsy and drainage of the pleural effusion. The films will be evaluated by Dr. Jerry Dominguez in evaluation for this procedure. GREGORIO Lewis, MD JRT/DEMARCO , 02:50 PM , 03:01 PM
--- NOTE | 2018-03-13 16:50 | P.PN ---
Subjective Interval history: Brief note: Patient seen today. Reports pleuritic pain upon deep breathing. Has diffuse rales bilaterally. Otherwise is unlabored breathing, on nasal cannula. has questions about risk of procedure. Physical Exam Vital signs: Vital Signs 03/12/18 22:40 03/12/18 23:15 03/13/18 00:03 Temperature 97.7 F Pulse Rate 80 78 60 Respiratory Rate 18 22 15 Blood Pressure 134/73 107/59 L Pulse Oximetry 96 97 03/13/18 02:35 03/13/18 03:42 03/13/18 08:00 Temperature 97.7 F 97.5 F L Pulse Rate 61 101 H 67 Respiratory Rate 18 17 17 Blood Pressure 105/59 L 114/74 136/67 Pulse Oximetry 95 93 L 95 03/13/18 08:48 03/13/18 12:00 03/13/18 15:43 Temperature 97.7 F Pulse Rate 73 70 71 Respiratory Rate 17 18 17 Blood Pressure 124/60 Pulse Oximetry 95 03/13/18 16:00 Temperature 98.8 F Pulse Rate 84 Respiratory Rate 18 Blood Pressure 128/68 Pulse Oximetry 95 Intake & Output 03/12/18 03/13/18 03/13/18 18:59 06:59 18:59 Intake Total 740 / 740 750 / 750 Balance 740 / 740 750 / 750 Weight 73.2 kg Intake: IV 500 / 500 750 / 750 Zosyn 4.5 GM Premix 4.5 gm In 200 / 200 100 ml @ 200 mls/hr IV.SIG Q6H [facility] Rx#:[id number] NS Inj 500 ML @ Wide Open IV. 500 / 500 SIG BOLUS ONE Rx#:[id number] Vancomycin Inj 1 gm In 200 ml @ 200 / 200 200 mls/hr IV.SIG ONCE ONE Rx# :[id number] Vancomycin Inj 1,000 MG In NS 250 / 250 Inj 250 ML @ 250 mls/hr IV.SIG ONCE ONE Rx#:[id number] Oral 240 / 240 Other: Date of Last Bowel Movement 03/12/18 - Urinary Catheter Management Indwelling Urethral Catheter Cath placed during this visit: yes Reason for continuing: Hourly intake/output Insertion date: 03/14/18 Insertion time: 08:00 Results - Labs CBC & Chem 7: 03/14/18 12:35 08/01/18 12:35 Laboratory Results - last 24 hr 03/13/18 03/13/18 03/13/18 00:35 00:35 12:15 WBC 13.7 H RBC 4.45 Hgb 14.5 Hct 43.0 MCV 96.6 MCH 32.5 MCHC 33.7 RDW 13.2 Plt Count 336 MPV 7.6 Neut % (Auto) 71.2 H Lymph % (Auto) 16.6 [place] % (Auto) 7.6 Eos % (Auto) 4.0 Baso % (Auto) 0.6 Neut # (Auto) 9.7 H Lymph # (Auto) 2.3 Sw[place] # (Auto) 1.0 H Eos # (Auto) 0.5 H Baso # (Auto) 0.1 WBC Differential . Differential Comment Auto diff final PT 10.5 INR 1.0 APTT Sodium 136 Potassium 4.2 Chloride 101 Carbon Dioxide 27.6 Anion Gap 7 BUN 13 Creatinine 1.09 H Estimated GFR 49 L Random Glucose 115 H Lactic Acid Calcium 8.9 Total Bilirubin 0.6 AST 8 L ALT 48 Alkaline Phosphatase 96 Total Protein 7.5 Albumin 3.0 L Procalcitonin 03/13/18 03/13/18 03/13/18 12:15 12:15 12:15 WBC RBC Hgb Hct MCV MCH MCHC RDW Plt Count MPV Neut % (Auto) Lymph % (Auto) [place] % (Auto) Eos % (Auto) Baso % (Auto) Neut # (Auto) Lymph # (Auto) [place] # (Auto) Eos # (Auto) Baso # (Auto) WBC Differential Differential Comment PT INR APTT 26.6 Sodium Potassium Chloride Carbon Dioxide Anion Gap BUN Creatinine Estimated GFR Random Glucose Lactic Acid 1.0 Calcium Total Bilirubin AST ALT Alkaline Phosphatase Total Protein Albumin Procalcitonin 0.09 H Assessment and Plan - Plan //Sepsis. -Suspect possible empyema, pulmonology recommending CT surgery consult for possible decortication -Continue antibiotics, discussed with CT surgery, plan for decortication tomorrow with leukocytosis, tachycardia, left lower lobe pneumonia. - BC's negative. - Pain control. - NPO after midnight
[2018-03-14] MEDS: Piperacil/Tazo 4.5 GM Premix 4.5 GM/100 ML BAG IV.SIG SCH ×4 (00:35→17:56)
[2018-03-14] MEDS ORDERED: Chlorhexidine Gluconate 2% 1 Pack (2 Cloths) TOPICAL SCH ×2 (04:00→07:45)
[2018-03-14] MEDS ORDERED: Sodium Chlor 0.9% Inj 500 ML IV.SIG SCH ×2 (04:00→08:00)
[2018-03-14] MEDS: Vancomycin Inj 1,250 MG in Sodium Chlor 0.9% Inj 250 ML IV.SIG SCH (05:09)
[2018-03-14] MEDS: Dextrose 5%/NaCl 0.45% Inj 1,000 ML IV.SIG SCH ×2 (05:09→17:56)
[2018-03-14] MEDS ORDERED: Bupivacaine PF 0.5% Inj 30 ML Vial ONE (06:55)
[2018-03-14] MEDS ORDERED: ceFAZolin 2 GM Premix Inj 0 GM/0 ML PIGGYBACK IV.SIG ONE (06:55)
[2018-03-14] MEDS ORDERED: Metoprolol Tartrate 25 MG Tablet PO SCH (07:45)
[2018-03-14] MEDS ORDERED: Bisacodyl 10 MG Supp RECTAL PRN (10:01)
[2018-03-14] MEDS ORDERED: Post-op Orders (for Pharmacy) OTHER STA (10:01)
[2018-03-14] MEDS ORDERED: Morphine Inj 30 MG/30 ML PCA.VIAL PCA PRN (10:04)
[2018-03-14] MEDS ORDERED: Naloxone Inj 0.4 MG/ML Vial IV.PUSH PRN (10:04)
[2018-03-14] MEDS ORDERED: Morphine Inj 4 MG/ML Vial IV.SIG ONE (10:04)
--- NOTE | 2018-03-14 10:21 | P.OP ---
Date of procedure: 03/14/18 Anesthesia: GETA Surgeon: Jerry Dominguez MD Operation and Findings: PREOPERATIVE DIAGNOSES 1. Left lung nodule 2. Pneumonia 3. Empyema POSTOPERATIVE DIAGNOSES Same SURGICAL PROCEDURE 1. Left Video-Assisted Thoracoscopic Surgery (VATS). 2. Decortication 3. Lysis of adhesions with evacuation of loculated pleural effusion 4. Intercostal Nerve Block SURGEON Jerry Dominguez MD RING MAKER ELIZABETH Draper ANESTHESIA General double lumen endotracheal. COLLECTIONS AGENT Pratima Mcguire, FRANCHESCA Knowles MD PREPARATION ChloraPrep. COUNTS Needle, sponge, and instrument counts are correct. DRAINS One 28 Fr chest tube. COMPLICATIONS None. INDICATIONS The patient is a 77yo female with a left lingular mass status post recent CT- guided biopsy with subsequent pneumonia and pleuritic chest pain as well as early empyema presenting for surgical drainage procedure. DESCRIPTION OF PROCEDURE The patient was brought to the operating room and placed supine on the OR table. Following the induction of adequate general double lumen endotracheal anesthesia and placement of appropriate monitoring devices, the patient was placed in the right lateral decubitus position. The left chest and surrounding areas were then prepped and draped in a standard sterile fashion. A 5 mm camera port was introduced into the 8th intercostal space in mid axillary line, and the camera introduced. A second 5 mm port was then placed anteriorly under direct visual guidance. Exploration of the chest revealed a stage II Empyema with associated multiple loculated fluid collections. Additionally there were significant adhesions between the lung and the chest wall. The adhesions were bluntly and sharply divided and the entire lung freed up. The peel was decorticated and the underlying lung was noted to be very consolidated, securing the left lower lobe. All loculations and fluid pockets were evacuated. Circumferential decortication was performed and specimen sent for microbiological and histological analysis. The pleural space was copiously irrigated with antibiotic solution. Exploration of the upper lobe did not reveal an easily identifiable nodule in the lingula. I suspect the nodule was much deeper within the lung parenchyma. Given the overlying induration and inflammation of the lung as well as surrounding inflammatory process, I decided not to exceed with thoracotomy at this point in efforts to identify and resect the small nodule. I did have a conversation with the patient's and numerous other family members at this time and their impression was in agreement with the above plan to not proceed with a thoracotomy at this point given her severe underlying pain. At this point the closure was undertaken. The anterior port was removed and a 28 Fr chest tube was placed in the pleural space. This was maintained in place with a nonabsorbable suture. All of the entry sites were injected with Marcaine 0.5%. Following confirmation of the drain in the proper place, the incisions were closed with 2 layers. The chest drain was attached to a suction device, and sterile dressing applied. Intercostal nerve block was performed using Marcaine solution. The patient tolerated the procedure well and was extubated and transferred to the recovery room in stable condition.
[2018-03-14] MEDS ORDERED: *morphine SULFATE 4 MG/ML PERIprocedure ONLY ONE (10:43)
[2018-03-14] MEDS ORDERED: fentaNYL Citrate Inj 100 MCG/2 ML Ampul ONE (10:54)
[2018-03-14] MEDS: Ketorolac Inj 30 MG/ML (IVP) Vial IV.PUSH SCH ×3 (11:30→22:34)
--- NOTE | 2018-03-14 12:02 | XR ---
EXAM DATE: 03/14/2018 11:28 AM EDT AGE/SEX: 77 years / Female INDICATIONS: Post thoracotomy. CLINICAL DATA: This is the patient's initial encounter. Patient reports that signs and symptoms have been present for 1 day and indicates a pain score of Nonresponsive. MEDICAL/SURGICAL HISTORY: . Lung mass. None. COMPARISON: [facility], CT CHEST W AND W/O CONTRAST, 03/12/2018. . FINDINGS: Cardiomegaly. Consolidation at the left lung base. Left-sided chest tube is present. I do not see a p neumothorax. Small left effusion suspected. There is atelectasis at the right base. CONCLUSION: Chest tube in place without evidence for pneumothorax. Electronically signed by: Daniel Dunham MD 03/14/2018 11:40 AM EDT
--- NOTE | 2018-03-14 12:58 | P.PN ---
Subjective Interval history: She had a thoracotomy and decortication. No biopsy lung was done since the nodule was too small. Chest tube is in. Physical Exam Vital signs: Vital Signs 03/13/18 15:43 03/13/18 16:00 03/13/18 20:00 Temperature 98.8 F 97.8 F Pulse Rate 71 84 81 Respiratory Rate 17 18 20 Blood Pressure 128/68 121/67 Pulse Oximetry 95 95 03/13/18 20:44 03/13/18 23:49 03/14/18 00:00 Temperature 97.9 F Pulse Rate 81 75 83 Respiratory Rate 16 16 18 Blood Pressure 132/62 Pulse Oximetry 96 95 03/14/18 01:55 03/14/18 12:46 Temperature Pulse Rate Respiratory Rate 17 Blood Pressure Pulse Oximetry 93 L Intake & Output 03/13/18 03/14/18 03/14/18 18:59 06:59 18:59 Intake Total 1310 / 1310 1000 / 1000 1700 / 1700 Output Total 750 / 750 Balance 1310 / 1310 1000 / 1000 950 / 950 Weight 76.1 kg Intake: IV 850 / 850 1000 / 1000 D5W/1/2 NS Inj 1,000 ML @ 70 1000 / 1000 mls/hr IV.SIG .[id number] [facility] Rx#: [id number] Zosyn 4.5 GM Premix 4.5 gm In 300 / 300 100 ml @ 200 mls/hr IV.SIG Q6H [facility] Rx#:[id number] Vancomycin Inj 1 gm In 200 ml @ 200 / 200 200 mls/hr IV.SIG ONCE ONE Rx# :[id number] Vancomycin Inj 1,000 MG In NS 250 / 250 Inj 250 ML @ 250 mls/hr IV.SIG ONCE ONE Rx#:[id number] Oral 460 / 460 Anesthesia Amount 1700 / 1700 Output: Estimated Blood Loss 50 / 50 Urine Amount (Catheter) 700 / 700 Indwelling Urethral Catheter 700 / 700 Other: # Voids 4 2 Date of Last Bowel Movement 03/12/18 GENERAL: Elderly W/F alert. SKIN: Warm and dry. HEAD: Atraumatic. Normocephalic. EYES: Pupils equal and round. No scleral icterus. No injection or drainage. ENT: No nasal bleeding or discharge. Mucous membranes pink and moist. NECK: Trachea midline. No JVD. CARDIOVASCULAR: Regular rate and rhythm. RESPIRATORY: No accessory muscle use. Breath sounds decreased at left base. Chest tube in. GASTROINTESTINAL: Abdomen soft, non-tender, nondistended. Hepatic and splenic margins not palpable. MUSCULOSKELETAL: Extremities without clubbing, cyanosis, or edema. No obvious deformities. NEUROLOGICAL: Awake and alert. No obvious cranial nerve deficits. Motor grossly within normal limits. Five out of 5 muscle strength in the arms and legs. Normal speech. PSYCHIATRIC: Appropriate mood and affect. - Urinary Catheter Management Indwelling Urethral Catheter Cath placed during this visit: yes Reason for continuing: Hourly intake/output Insertion date: 03/14/18 Insertion time: 08:00 Results - Labs CBC & Chem 7: 03/13/18 00:35 03/13/18 00:35 Laboratory Results - last 24 hr 03/13/18 03/13/18 03/13/18 12:15 12:15 17:16 Lactic Acid 1.0 Procalcitonin 0.09 H Blood Type A Positive Blood Type Recheck Antibody Screen Negative MTS Gel Crossmatch See Detail Microbiology 03/13/18 12:10 Blood - Peripheral Aerobic Blood Culture - Preliminary No growth in 1 day 03/13/18 12:10 Blood - Peripheral Anaerobic Blood Culture - Preliminary No growth in 1 day 03/13/18 12:15 Blood - Peripheral Aerobic Blood Culture - Preliminary No growth in 1 day 03/13/18 12:15 Blood - Peripheral Anaerobic Blood Culture - Preliminary No growth in 1 day 03/13/18 00:35 Blood - Peripheral Aerobic Blood Culture - Preliminary No growth in 1 day 03/13/18 00:35 Blood - Peripheral Anaerobic Blood Culture - Preliminary No growth in 1 day 03/13/18 00:40 Blood - Peripheral Aerobic Blood Culture - Preliminary No growth in 1 day 03/13/18 00:40 Blood - Peripheral Anaerobic Blood Culture - Preliminary No growth in 1 day - Imaging Impressions Chest X-Ray 03/14/18 10:01 CONCLUSION: Chest tube in place without evidence for pneumothorax. Assessment and Plan - Assessment (1) Empyema lung Code(s): J86.9 - Pyothorax without fistula Status: Acute (2) Lung nodule Code(s): R91.1 - Solitary pulmonary nodule Status: Acute (3) Pneumonia Code(s): J18.9 - Pneumonia, unspecified organism Status: Acute (4) Pneumothorax Code(s): J93.9 - Pneumothorax, unspecified Status: Acute (5) Intractable pain Code(s): R52 - Pain, unspecified Status: Acute (6) Pleural effusion Code(s): J90 - Pleural effusion, not elsewhere classified Status: Acute - Plan 1. Chest tube to drain 2. Continue antibiotics Zosyn, Vancomycin 3. O2 3 L. 4. Duoneb nebs qid. 5. CBC, CXR,BMP in am 6.Morphine TIME MOTION ANALYST pump for pain 7. Await cultures from Pleural fluid (3) Pneumonia Qualifiers: Pneumonia type: due to unspecified organism Laterality: left Lung location: lower lobe of lung Qualified Code(s): J18.1 - Lobar pneumonia, unspecified organism
[2018-03-14 13:17] LABS: Baso % (Auto) 0.3 % (0.0-2.0); Eos # (Auto) 0.2 th/mm3 (0.0-0.4); Eos % (Auto) 1.2 % (0.0-4.0); Hemoglobin 12.5 gm/dL (11.6-15.3); Lymph # (Auto) 0.8 th/mm3 (1.0-4.8); Lymph % (Auto) 5.9 % (9.0-44.0); Mean Corpuscular HGB Conc 32.9 % (32.0-36.0); Mean Corpuscular Hemoglobin 32.1 pg (27.0-34.0); Mean Corpuscular Volume 97.7 fL (80.0-100.0); Mean Platelet Volume 7.7 fL (7.0-11.0); Mono # (Auto) 0.6 th/mm3 (0.0-0.9); Mono % (Auto) 4.4 % (0.0-8.0); Neut # (Auto) 11.8 th/mm3 (1.8-7.7); Neut % (Auto) 88.2 % (16.0-70.0); Platelet Count 285 th/mm3 (150-450); Red Blood Count 3.89 mil/mm3 (4.00-5.30); Red Cell Distribution Width 13.7 % (11.6-17.2); White Blood Count 13.4 th/mm3 (4.0-11.0)
[2018-03-14 13:37] LABS: Albumin 2.3 g/dL (3.4-5.0); Anion Gap 8 meq/L (5-15); Aspartate Aminotransferase 15 U/L (15-37); Blood Urea Nitrogen 8 mg/dL (7-18); Calcium 8.6 mg/dL (8.5-10.1); Carbon Dioxide 24.4 meq/L (21.0-32.0); Chloride 107 meq/L (98-107); Glomerular Filtration Rate 78 mL/min (>89); Glucose,Random 101 mg/dL (74-106); Potassium 4.5 meq/L (3.5-5.1); Sodium 139 meq/L (136-145)
[2018-03-14 13:40] LABS: Alanine Aminotransferase 35 U/L (10-53); Alkaline Phosphatase 78 U/L (45-117); Total Protein 6.3 g/dL (6.4-8.2)
--- NOTE | 2018-03-14 15:42 | P.PN ---
Subjective Interval history: Nursing denies any deterioration since last night. Patient says she is not in any pain at this time. Status post VATS, decortication, and lysis of adhesions. family member at bedside says the patient's sputum is coming a much more easily now. Physical Exam Vital signs: Vital Signs 03/13/18 15:43 03/13/18 16:00 03/13/18 20:00 Temperature 98.8 F 97.8 F Pulse Rate 71 84 81 Respiratory Rate 17 18 20 Blood Pressure 128/68 121/67 Pulse Oximetry 95 95 03/13/18 20:44 03/13/18 23:49 03/14/18 00:00 Temperature 97.9 F Pulse Rate 81 75 83 Respiratory Rate 16 16 18 Blood Pressure 132/62 Pulse Oximetry 96 95 03/14/18 01:55 03/14/18 10:31 03/14/18 10:45 Temperature 97.9 F Pulse Rate 89 89 Respiratory Rate 17 20 20 Blood Pressure 121/56 L 139/68 Pulse Oximetry 95 95 03/14/18 11:00 03/14/18 11:15 03/14/18 11:30 Temperature Pulse Rate 74 69 82 Respiratory Rate 20 20 20 Blood Pressure 128/64 125/65 138/60 Pulse Oximetry 95 92 L 92 L 03/14/18 11:46 03/14/18 12:00 03/14/18 12:46 Temperature 97.9 F 97.2 F L Pulse Rate 82 70 Respiratory Rate 20 17 Blood Pressure 130/60 129/71 Pulse Oximetry 90 L 93 L Intake & Output 03/13/18 03/14/18 03/14/18 18:59 06:59 18:59 Intake Total 1310 / 1310 1000 / 1000 1700 / 1700 Output Total 750 / 750 Balance 1310 / 1310 1000 / 1000 950 / 950 Weight 76.1 kg Intake: IV 850 / 850 1000 / 1000 D5W/1/2 NS Inj 1,000 ML @ 70 1000 / 1000 mls/hr IV.SIG .[id number] [facility] Rx#: [id number] Zosyn 4.5 GM Premix 4.5 gm In 300 / 300 100 ml @ 200 mls/hr IV.SIG Q6H [facility] Rx#:[id number] Vancomycin Inj 1 gm In 200 ml @ 200 / 200 200 mls/hr IV.SIG ONCE ONE Rx# :[id number] Vancomycin Inj 1,000 MG In NS 250 / 250 Inj 250 ML @ 250 mls/hr IV.SIG ONCE ONE Rx#:[id number] Oral 460 / 460 Anesthesia Amount 1700 / 1700 Output: Estimated Blood Loss 50 / 50 Urine Amount (Catheter) 700 / 700 Indwelling Urethral Catheter 700 / 700 Other: # Voids 4 2 Date of Last Bowel Movement 03/12/18 Narrative: Unlabored breathing, raspy breath sounds bilaterally Chest tube in place No acute distress, awake, alert - Urinary Catheter Management Indwelling Urethral Catheter Cath placed during this visit: yes Reason for continuing: Hourly intake/output Insertion date: 03/14/18 Insertion time: 08:00 Results - Labs CBC & Chem 7: 03/14/18 12:35 03/14/18 12:35 Laboratory Results - last 24 hr 03/13/18 03/13/18 03/14/18 12:15 17:16 12:35 WBC 13.4 H RBC 3.89 L Hgb 12.5 D Hct 38.0 MCV 97.7 MCH 32.1 MCHC 32.9 RDW 13.7 Plt Count 285 MPV 7.7 Neut % (Auto) 88.2 H Lymph % (Auto) 5.9 L [place] % (Auto) 4.4 Eos % (Auto) 1.2 Baso % (Auto) 0.3 Neut # (Auto) 11.8 H Lymph # (Auto) 0.8 L [place] # (Auto) 0.6 Eos # (Auto) 0.2 Baso # (Auto) 0.0 WBC Differential . Differential Comment Auto diff final Sodium Potassium Chloride Carbon Dioxide Anion Gap BUN Creatinine Estimated GFR Random Glucose Calcium Total Bilirubin AST ALT Alkaline Phosphatase Total Protein Albumin Procalcitonin 0.09 H Blood Type A Positive Blood Type Recheck Antibody Screen Negative MTS Gel Crossmatch See Detail 03/14/18 12:35 WBC RBC Hgb Hct MCV MCH MCHC RDW Plt Count MPV Neut % (Auto) Lymph % (Auto) [place] % (Auto) Eos % (Auto) Baso % (Auto) Neut # (Auto) Lymph # (Auto) [place] # (Auto) Eos # (Auto) Baso # (Auto) WBC Differential Differential Comment Sodium 139 Potassium 4.5 Chloride 107 Carbon Dioxide 24.4 Anion Gap 8 BUN 8 Creatinine 0.73 Estimated GFR 78 L Random Glucose 101 Calcium 8.6 Total Bilirubin 0.3 AST 15 ALT 35 Alkaline Phosphatase 78 Total Protein 6.3 L D Albumin 2.3 L D Procalcitonin Blood Type Blood Type Recheck Antibody Screen MTS Gel Crossmatch Microbiology 03/13/18 12:10 Blood - Peripheral Aerobic Blood Culture - Preliminary No growth in 1 day 03/13/18 12:10 Blood - Peripheral Anaerobic Blood Culture - Preliminary No growth in 1 day 03/13/18 12:15 Blood - Peripheral Aerobic Blood Culture - Preliminary No growth in 1 day 03/13/18 12:15 Blood - Peripheral Anaerobic Blood Culture - Preliminary No growth in 1 day 03/13/18 00:35 Blood - Peripheral Aerobic Blood Culture - Preliminary No growth in 1 day 03/13/18 00:35 Blood - Peripheral Anaerobic Blood Culture - Preliminary No growth in 1 day 03/13/18 00:40 Blood - Peripheral Aerobic Blood Culture - Preliminary No growth in 1 day 03/13/18 00:40 Blood - Peripheral Anaerobic Blood Culture - Preliminary No growth in 1 day - Imaging Impressions Chest X-Ray 03/14/18 10:01 CONCLUSION: Chest tube in place without evidence for pneumothorax. Assessment and Plan - Plan //Sepsis. - empyema, pulmonology following; bc'S pending. - pleural fluid cultures pending. -Continue antibiotics, , -Status post VATS and decortication and lysis of adhesions and chest tube placement - CT surg as HELD OFF on thoracatomy for lung nodule bx at this time - BC's negative. - Pain control via PC pump
[2018-03-14] MEDS: Senna/Docusate Sodium 8.6/50 MG Tablet PO SCH (22:42)
[2018-03-15] MEDS: Piperacil/Tazo 4.5 GM Premix 4.5 GM/100 ML BAG IV.SIG SCH ×4 (00:10→17:48)
[2018-03-15] MEDS: Vancomycin Inj 1,250 MG in Sodium Chlor 0.9% Inj 250 ML IV.SIG SCH (04:30)
[2018-03-15] MEDS: Ketorolac Inj 30 MG/ML (IVP) Vial IV.PUSH SCH (05:48)
[2018-03-15] MEDS: Dextrose 5%/NaCl 0.45% Inj 1,000 ML IV.SIG SCH ×2 (08:40→20:18)
[2018-03-15] MEDS: Enoxaparin Inj 30 MG/0.3 ML Syringe SQ SCH (08:40)
[2018-03-15] MEDS: Senna/Docusate Sodium 8.6/50 MG Tablet PO SCH ×2 (08:41→20:14)
--- NOTE | 2018-03-15 11:57 | P.PN ---
Subjective Interval history: Nursing denies any deterioration since last night. Patient and her both endorse that she feels much better today than she did prior to her surgery. Says pain is much improved. Nursing reports output at about 75 cc. Physical Exam Vital signs: Vital Signs 03/14/18 12:00 03/14/18 12:46 03/14/18 16:00 Temperature 97.2 F L 97.3 F L Pulse Rate 70 69 Respiratory Rate 17 18 Blood Pressure 129/71 116/75 Pulse Oximetry 90 L 93 L 92 L 03/14/18 20:00 03/14/18 20:30 03/15/18 00:00 Temperature 97.3 F L 97.2 F L Pulse Rate 70 69 73 Respiratory Rate 18 18 18 Blood Pressure 110/58 L 103/51 L Pulse Oximetry 98 92 L 95 03/15/18 00:01 03/15/18 04:00 03/15/18 08:00 Temperature 97.1 F L 97.7 F Pulse Rate 68 65 67 Respiratory Rate 18 18 17 Blood Pressure 124/61 109/54 L Pulse Oximetry 97 97 96 03/15/18 10:14 Temperature Pulse Rate 75 Respiratory Rate 12 Blood Pressure Pulse Oximetry 96 Intake & Output 03/14/18 03/15/18 03/15/18 18:59 06:59 18:59 Intake Total 4320 / 4320 1855 / 1855 Output Total 1326 / 1326 724 / 724 Balance 2994 / 2994 1131 / 1131 Weight 79.9 kg Intake: IV 1200 / 1200 1375 / 1375 D5W/1/2 NS Inj 1,000 ML @ 70 1000 / 1000 mls/hr IV.SIG .[id number] TED Rx#: [id number] LR 1000 mL Inj 1,000 ML @ 30 1000 / 1000 mls/hr IV.SIG .Q24H TED Rx#: [id number] Zosyn 4.5 GM Premix 4.5 gm In 200 / 200 100 / 100 100 ml @ 200 mls/hr IV.SIG Q6H TED Rx#:[id number] Vancomycin Inj 1,250 MG In NS 275 / 275 Inj 250 ML @ 250 mls/hr IV.SIG Q24H TED Rx#:[id number] Oral 720 / 720 480 / 480 Anesthesia Amount 1700 / 1700 Other 700 / 700 Output: Estimated Blood Loss 50 / 50 Urine Amount (Catheter) 1200 / 1200 600 / 600 Indwelling Urethral Catheter 1200 / 1200 600 / 600 Chest Tube Drainage 76 / 76 124 / 124 Left Pleural 76 / 76 124 / 124 Other: Date of Last Bowel Movement 03/12/18 Narrative: Slight crackles in the left upper lung field, otherwise clear lungs bilaterally , chest tube in place, unlabored breathing No acute distress - Urinary Catheter Management Indwelling Urethral Catheter Cath placed during this visit: yes, but has since been removed by the nurse Reason for continuing: Hourly intake/output Insertion date: 03/14/18 Insertion time: 08:00 Removal date: 03/15/18 Removal time: 09:00 Results - Labs CBC & Chem 7: 03/14/18 12:35 03/14/18 12:35 Laboratory Results - last 24 hr 03/13/18 03/14/18 03/14/18 17:16 12:35 12:35 WBC 13.4 H RBC 3.89 L Hgb 12.5 D Hct 38.0 MCV 97.7 MCH 32.1 MCHC 32.9 RDW 13.7 Plt Count 285 MPV 7.7 Neut % (Auto) 88.2 H Lymph % (Auto) 5.9 L [place] % (Auto) 4.4 Eos % (Auto) 1.2 Baso % (Auto) 0.3 Neut # (Auto) 11.8 H Lymph # (Auto) 0.8 L [place] # (Auto) 0.6 Eos # (Auto) 0.2 Baso # (Auto) 0.0 WBC Differential . Differential Comment Auto diff final Sodium 139 Potassium 4.5 Chloride 107 Carbon Dioxide 24.4 Anion Gap 8 BUN 8 Creatinine 0.73 Estimated GFR 78 L Random Glucose 101 Calcium 8.6 Total Bilirubin 0.3 AST 15 ALT 35 Alkaline Phosphatase 78 Total Protein 6.3 L D Albumin 2.3 L D Blood Type A Positive Blood Type Recheck Antibody Screen Negative MTS Gel Crossmatch See Detail Microbiology 03/13/18 12:10 Blood - Peripheral Aerobic Blood Culture - Preliminary No growth in 2 days 03/13/18 12:10 Blood - Peripheral Anaerobic Blood Culture - Preliminary No growth in 2 days 03/13/18 12:15 Blood - Peripheral Aerobic Blood Culture - Preliminary No growth in 2 days 03/13/18 12:15 Blood - Peripheral Anaerobic Blood Culture - Preliminary No growth in 2 days 03/13/18 00:35 Blood - Peripheral Aerobic Blood Culture - Preliminary No growth in 2 days 03/13/18 00:35 Blood - Peripheral Anaerobic Blood Culture - Preliminary No growth in 2 days 03/13/18 00:40 Blood - Peripheral Aerobic Blood Culture - Preliminary No growth in 2 days 03/13/18 00:40 Blood - Peripheral Anaerobic Blood Culture - Preliminary No growth in 2 days 03/14/18 08:30 Fluid - Pleural fluid Fungal Smear - Final No fungal elements seen 03/14/18 08:30 Fluid - Pleural fluid Gram Stain - Final - Imaging Impressions Chest X-Ray 03/14/18 10:01 CONCLUSION: Chest tube in place without evidence for pneumothorax. Assessment and Plan - Plan //Sepsis. - empyema -Blood cultures have been negative - pleural fluid cultures pending. -Continue antibiotics, , -Status post VATS and decortication and lysis of adhesions and chest tube placement POD 1 - CT surg as HELD OFF on thoracatomy for lung nodule bx at this time - BC's negative. - Pain control via PC pump -Pulmonology following left lung nodule - further workup in future per pulmonology/CTS
--- NOTE | 2018-03-15 12:59 | P.PN ---
Subjective Interval history: Feels much better. No fever. Chest tube is draining. CXR stable. Cultures from pleural fluid are negative so Far. Physical Exam Vital signs: Vital Signs 03/14/18 16:00 03/14/18 20:00 03/14/18 20:30 Temperature 97.3 F L 97.3 F L Pulse Rate 69 70 69 Respiratory Rate 18 18 18 Blood Pressure 116/75 110/58 L Pulse Oximetry 92 L 98 92 L 03/15/18 00:00 03/15/18 00:01 03/15/18 04:00 Temperature 97.2 F L 97.1 F L Pulse Rate 73 68 65 Respiratory Rate 18 18 18 Blood Pressure 103/51 L 124/61 Pulse Oximetry 95 97 97 03/15/18 08:00 03/15/18 10:14 03/15/18 12:00 Temperature 97.7 F 97.6 F Pulse Rate 67 75 71 Respiratory Rate 17 12 17 Blood Pressure 109/54 L 131/58 L Pulse Oximetry 96 96 98 Intake & Output 03/14/18 03/15/18 03/15/18 18:59 06:59 18:59 Intake Total 4320 / 4320 1855 / 1855 Output Total 1326 / 1326 724 / 724 Balance 2994 / 2994 1131 / 1131 Weight 79.9 kg Intake: IV 1200 / 1200 1375 / 1375 D5W/1/2 NS Inj 1,000 ML @ 70 1000 / 1000 mls/hr IV.SIG .[id number] TED Rx#: [id number] LR 1000 mL Inj 1,000 ML @ 30 1000 / 1000 mls/hr IV.SIG .Q24H TED Rx#: [id number] Zosyn 4.5 GM Premix 4.5 gm In 200 / 200 100 / 100 100 ml @ 200 mls/hr IV.SIG Q6H TED Rx#:[id number] Vancomycin Inj 1,250 MG In NS 275 / 275 Inj 250 ML @ 250 mls/hr IV.SIG Q24H TED Rx#:[id number] Oral 720 / 720 480 / 480 Anesthesia Amount 1700 / 1700 Other 700 / 700 Output: Estimated Blood Loss 50 / 50 Urine Amount (Catheter) 1200 / 1200 600 / 600 Indwelling Urethral Catheter 1200 / 1200 600 / 600 Chest Tube Drainage 124 / 124 Left Pleural 76 / 76 124 / 124 Other: Date of Last Bowel Movement 03/12/18 Narrative: GENERAL: Alert and no distress SKIN: Warm and dry. HEAD: Atraumatic. Normocephalic. EYES: Pupils equal and round. No scleral icterus. No injection or drainage. ENT: No nasal bleeding or discharge. Mucous membranes pink and moist. NECK: Trachea midline. No JVD. CARDIOVASCULAR: Regular rate and rhythm. RESPIRATORY: No accessory muscle use. Occ Wheeze and mild Crackles on left lung field. Breath sounds decreased at left base. GASTROINTESTINAL: Abdomen soft, non-tender, nondistended. Hepatic and splenic margins not palpable. MUSCULOSKELETAL: Extremities without clubbing, cyanosis, or edema. No obvious deformities. NEUROLOGICAL: Awake and alert. No obvious cranial nerve deficits. Motor grossly within normal limits. Five out of 5 muscle strength in the arms and legs. Normal speech. PSYCHIATRIC: Appropriate mood and affect; insight and judgment normal. - Urinary Catheter Management Indwelling Urethral Catheter Cath placed during this visit: yes, but has since been removed by the nurse Reason for continuing: Hourly intake/output Insertion date: 03/14/18 Insertion time: 08:00 Removal date: 03/15/18 Removal time: 09:00 Results - Labs CBC & Chem 7: 03/14/18 12:35 03/14/18 12:35 Laboratory Results - last 24 hr 03/13/18 03/14/18 03/14/18 17:16 12:35 12:35 WBC 13.4 H RBC 3.89 L Hgb 12.5 D Hct 38.0 MCV 97.7 MCH 32.1 MCHC 32.9 RDW 13.7 Plt Count 285 MPV 7.7 Neut % (Auto) 88.2 H Lymph % (Auto) 5.9 L [place] % (Auto) 4.4 Eos % (Auto) 1.2 Baso % (Auto) 0.3 Neut # (Auto) 11.8 H Lymph # (Auto) 0.8 L [place] # (Auto) 0.6 Eos # (Auto) 0.2 Baso # (Auto) 0.0 WBC Differential . Differential Comment Auto diff final Sodium 139 Potassium 4.5 Chloride 107 Carbon Dioxide 24.4 Anion Gap 8 BUN 8 Creatinine 0.73 Estimated GFR 78 L Random Glucose 101 Calcium 8.6 Total Bilirubin 0.3 AST 15 ALT 35 Alkaline Phosphatase 78 Total Protein 6.3 L D Albumin 2.3 L D Blood Type A Positive Blood Type Recheck Antibody Screen Negative MTS Gel Crossmatch See Detail Microbiology 03/14/18 08:30 Fluid - Pleural fluid Acid Fast Bacilli Smear - Final No acid fast bacilli seen 03/13/18 12:10 Blood - Peripheral Aerobic Blood Culture - Preliminary No growth in 2 days 03/13/18 12:10 Blood - Peripheral Anaerobic Blood Culture - Preliminary No growth in 2 days 03/13/18 12:15 Blood - Peripheral Aerobic Blood Culture - Preliminary No growth in 2 days 03/13/18 12:15 Blood - Peripheral Anaerobic Blood Culture - Preliminary No growth in 2 days 03/13/18 00:35 Blood - Peripheral Aerobic Blood Culture - Preliminary No growth in 2 days 03/13/18 00:35 Blood - Peripheral Anaerobic Blood Culture - Preliminary No growth in 2 days 03/13/18 00:40 Blood - Peripheral Aerobic Blood Culture - Preliminary No growth in 2 days 03/13/18 00:40 Blood - Peripheral Anaerobic Blood Culture - Preliminary No growth in 2 days 03/14/18 08:30 Fluid - Pleural fluid Fungal Smear - Final No fungal elements seen 03/14/18 08:30 Fluid - Pleural fluid Gram Stain - Final Assessment and Plan - Assessment (1) Empyema lung Code(s): J86.9 - Pyothorax without fistula Status: Acute (2) Lung nodule Code(s): R91.1 - Solitary pulmonary nodule Status: Acute (3) Pneumonia Code(s): J18.9 - Pneumonia, unspecified organism Status: Acute (4) Pneumothorax Code(s): J93.9 - Pneumothorax, unspecified Status: Acute (5) Intractable pain Code(s): R52 - Pain, unspecified Status: Acute (6) Pleural effusion Code(s): J90 - Pleural effusion, not elsewhere classified Status: Acute - Plan 1. Chest tube to drain 2. Continue antibiotics Zosyn, Vancomycin 3. O2 3 L. 4. Duoneb nebs qid. 5. CBC, CXR, BMP in am 6.Morphine ASSISTANT DIRECTOR OF PLANT OPERATIONS pump for pain 7. Ask ID consult . (3) Pneumonia Qualifiers: Pneumonia type: due to unspecified organism Laterality: left Lung location: lower lobe of lung Qualified Code(s): J18.1 - Lobar pneumonia, unspecified organism
--- NOTE | 2018-03-15 14:49 | P.PNCV ---
- Note Subjective/Hospital Course: 03/14 surgery: 1. Left Video-Assisted Thoracoscopic Surgery (VATS). 2. Decortication 3. Lysis of adhesions with evacuation of loculated pleural effusion 4. Intercostal Nerve Block 03/15 pt doing well pain controlled , on TOOLMAKER GRADE THREE pump no air leak / chest tube drained 120cc/ 12 hrs will decrease IV fluids Objective: Vital Signs - 24 hr 03/14/18 16:00 03/14/18 20:00 03/14/18 20:30 Temperature 97.3 F L 97.3 F L Pulse Rate 69 70 69 Respiratory Rate 18 18 18 Blood Pressure 116/75 110/58 L Pulse Oximetry 92 L 98 92 L 03/15/18 00:00 03/15/18 00:01 03/15/18 04:00 Temperature 97.2 F L 97.1 F L Pulse Rate 73 68 65 Respiratory Rate 18 18 18 Blood Pressure 103/51 L 124/61 Pulse Oximetry 95 97 97 03/15/18 08:00 03/15/18 10:14 03/15/18 12:00 Temperature 97.7 F 97.6 F Pulse Rate 67 75 71 Respiratory Rate 17 12 17 Blood Pressure 109/54 L 131/58 L Pulse Oximetry 96 96 98 GENERAL: A&O x 3 SKIN: Warm and dry. incision intact left steel erector lateral chest wall x 2 HEAD: Normocephalic. EYES: No scleral icterus. No injection or drainage. NECK: Supple, trachea midline. No JVD or lymphadenopathy. CARDIOVASCULAR: Regular rate and rhythm without murmurs, gallops, or rubs. RESPIRATORY: Breath sounds equal bilaterally. No accessory muscle use. crackles right lower lobe, diminished in left lower lobe GASTROINTESTINAL: Abdomen soft, non-tender, nondistended. MUSCULOSKELETAL: No cyanosis, or edema. BACK: Nontender without obvious deformity. No CVA tenderness. Labs: Laboratory Results - last 12 hr 03/13/18 17:16 Blood Type A Positive Blood Type Recheck Antibody Screen Negative MTS Gel Crossmatch See Detail Result Diagrams: 03/14/18 12:35 03/14/18 12:35 - Plan (1) S/P thoracotomy Plan: pulm toileting , nebs pain control OOB ambulate ok to ambulated off
--- NOTE | 2018-03-15 14:54 | P.DCO ---
- Home Health Nursing Order: Signs/symptoms of disease process, Wound care and dressing changes, Nursing assessment with vital signs - Home Health Aide Instructions: Thoracic Surgery patients Mandatory frequency Assess and evaluation, 2-3 x a week for one week Initial visit 1. Review post chest surgery instructions chest precautions, Activity, Elastic hose, Incision care, Driving, Incentive spirometry, Smoking, [place] , Work and other) 2. Need Betadine to paint incision 3. Medication reconciliation 4. Importance of follow up care/ check on appointments 5. Make calendar record temperature daily 6. When to call Home nurse, review instructions, phone list 7. Incentive Spirometry, demonstration Visit 1- Begin discharge instruction for patient family and/ or caregiver using teach back method- 1. Signs and symptoms of infection 2. Disease characteristics 3. Medicines and side effects 4. Foods and nutrition/ appetite 5. Infection control/ hand washing/ hygiene Visit 2- Continue teaching 1. Discharge instructions- include additional information on smoking cessation , Visit 3- Continue teaching- 1. Cough and deep breathing, incision monitoring. For any questions please call : / [facility] [phone] Incentive spirometry Q1 hr x 10, while awake, also use acapella device hourly whole Chest wall precautions: NO pushing or pulling, ( pt must use chest pillow support chest with all activities and with coughing Daily incision care: ok to shower ( 48hrs after chest tube removed) and then daily, no tub bath. Wash all incisions with liquid dial soap, clean wash cloth to each site, rinse and pat dry. Observe for any signs of infection, such as drainage which is dark yellow, britt, green or foul smelling. Immediately report to the surgeon any drainage from the chest incision, or legs, and for any abnormal drainage from the chest tube sites. Notify surgeon if any temp > 101.5 degrees F. When specialty dressing removed/ or if you do not have one, continue to shower daily as above, then rinse and pat incision dry and paint with betadine daily x 5 days. Allow steri strips to fall off if you have any. Avoid lotions, creams, salves, oils, etc. for the first month For Dr. Abrams patients , please obtain PA & Lat CXR in 2 weeks, results to Dr. Abrams ( prescription will be given) ( ) (Tele: ) , F/U appointment: as per [place] instructions: PCP in 2 weeks, CV surgeon 2 weeks, Rubber Trimmer 3-4 weeks For any questions regarding incisions/ dressing / meds / post op care or above Symptoms, Monday 8am-5pm Heart & Vascular Surgery Office ( Dr. Dominguez & Dr. Abrams), After Hours / Nights (5pm -8am) Weekends and Holidays Please call [facility] ([facility]) Charge Nurse - Certification I have seen patient Gian Pearlhill on 03/15/18. My clinical findings support the need for the requested home health care services because: Deconditioned with increased weakness I certify that my clinical findings support that this patient is homebound because: Post-op weakness
[2018-03-15 15:00] LABS: Hematocrit 38.6 % (35.0-46.0); Hemoglobin 12.7 gm/dL (11.6-15.3); Mean Corpuscular HGB Conc 32.9 % (32.0-36.0); Mean Corpuscular Hemoglobin 31.7 pg (27.0-34.0); Mean Corpuscular Volume 96.4 fL (80.0-100.0); Mean Platelet Volume 7.8 fL (7.0-11.0); Platelet Count 294 th/mm3 (150-450); Red Cell Distribution Width 13.6 % (11.6-17.2); White Blood Count 11.8 th/mm3 (4.0-11.0)
--- NOTE | 2018-03-15 20:38 | P.PNADD ---
Addendum to Inpatient Note Additional information: Pt seen around 7 pm chart erviewed dw family @ b/s full note to follow
--- NOTE | 2018-03-15 20:38 | P.CONID ---
History of Present Illness Service: ID Consult date: 03/15/18 Requesting Physician: Timi Wilson Reason for Consult: pneumonia Primary Care Provider: UNKNOWN Family Provider: Anish Goodwin History of Present Illness: 77 yo female with unremarkable past med history except for gastric reflux and chronic dry cough developped L sided chest pain, malaise and worsing dry cough about 1 month ago She had an Xray that showed L lung infiltrate and wsa started on antibiotics. She apparently took several courses of azitro and ceftin without any significant improvement She had multiple CTs, PET scan and eventully underwent VATS with bipsy Path showed no malignancy and was ca with organising PNA A week later she developped worsening SOB and pain and was found to have L sided efusion She underwent L CT placement and immediately felt better Cultures are negative to date. Funagal and AFB stain s negative REmote short term tobacco history (8 yrs) No significant travel historuy. Denies exposre to TB Afebrule with mild leukocytosis On broad spectrum abx (vanco, zosyn) Review of Systems All other systems reviewed negative except as stated in HPI PMFSH - History History Provided By: Patient - Medical History Medical History: Medical History (Last Reviewed 03/21/18 @ 12:05 by Breanna Landin MD) GERD (gastroesophageal reflux disease) (Acute) Hx of smoking (Acute) Bronchitis (Acute) - Surgical History Surgical History: Surgical History (Last Reviewed 03/21/18 @ 12:05 by Breanna Landin MD) History of bladder suspension procedure (Acute) - Family History Family History: Family History (Last Reviewed 03/21/18 @ 12:05 by Breanna Landin MD) Father Family history of cancer Mother Family history of cancer Family history of hypertension Sister Family history of cancer Brother Family history of cancer - Social History I have reviewed the patient's Social History: Yes - Tobacco History Second Hand Smoke Exposure: No Tobacco Use In Past 30 Days: No Smoking Status: Former smoker Tobacco Type: Cigarettes - Alcohol History How Often Do You Have a Drink Containing Alcohol: 4 or more times a week - Substance Use History Substance History: No History of Abuse - Travel History Recent Travel in the [place] Within the Last 8 Weeks: No Recent Travel Out of the Country Within the Last 8 Weeks: No - Immunization History Tetanus Immunization: <5 Years Hx Influenza Vaccine This Season: Yes Medications and Allergies Active Medications: Active Medications Hydrocodone Bitart/Acetaminophen ([place] 7.5/325) 1 tab PO Q6H PRN PRN Reason: Acute Pain 1-5 Last Admin: 03/15/18 17:48 Dose: 1 tab Al Hydroxide/Mg Hydroxide (Milk Of Gerri Liq) 30 ml PO Q12H PRN PRN Reason: Mild Constipation Albuterol (Duoneb Neb (Prn)) 1 ampul NEB Q2HR NEB PRN PRN Reason: SHORTNESS OF BREATH/WHEEZING Albuterol (Duoneb Neb (Myrna)) 1 ampul NEB Q6HR ALT NEB [facility] Last Admin: 03/15/18 17:28 Dose: 1 ampul Bisacodyl (Dulcolax Supp) 10 mg RECTAL DAILY PRN PRN Reason: SEVERE CONSITIPATION Chlorhexidine Gluconate (Chlorhexidine 2% Cloth) 3 pack 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 [facility] Stop: 03/17/18 03:54 Diphenhydramine HCl (Benadryl) 25 mg PO Q6H PRN PRN Reason: for itching Enoxaparin Sodium (Lovenox Inj) 30 mg SQ Q24H [facility] Last Admin: 03/15/18 08:40 Dose: 30 mg Pharmacy Profile Note (Vancomycin Consult Pharmacy) 0 mls @ 0 mls/hr OTHER UNSCH [facility] Piperacillin/Tazobactam/Dextrose (Zosyn 4.5 Gm Premix) 4.5 gm in 100 mls @ 200 mls/hr IV.SIG Q6H [facility] Last Infusion: 03/15/18 18:15 Dose: 200 mls/hr Vancomycin HCl 1,250 mg/ (Sodium Chloride) 275 mls @ 250 mls/hr IV.SIG Q24H [facility] Last Admin: 03/15/18 04:30 Dose: 250 mls/hr Dextrose/Sodium Chloride (D5w/1/2 Ns Inj) 1,000 mls @ 70 mls/hr IV.SIG .[id number] [facility] Last Admin: 03/15/18 20:18 Dose: 70 mls/hr Lactated Ringer's (Lr 1000 Ml Inj) 1,000 mls @ 30 mls/hr IV.SIG .Q24H [facility] Stop: 03/17/18 03:54 Last Admin: 03/15/18 20:17 Dose: 30 mls/hr Sodium Chloride (Ns Inj) 500 mls @ 30 mls/hr IV.SIG .Q10H [facility] Stop: 03/17/18 03:54 Sodium Chloride (Ns Inj) 500 mls @ 30 mls/hr IV.SIG .Q10H [facility] Stop: 03/17/18 07:31 Morphine Sulfate (Morphine Inj) 30 mg in 30 mls @ 0 mls/hr LEGISLATIVE ASSISTANT UNSCH PRN PRN Reason: per LEGISLATIVE ASSISTANT parameters Last Admin: 03/14/18 11:24 Dose: 0 mls/hr Lactulose (Lactulose Liq) 30 ml PO DAILY PRN PRN Reason: SEVERE CONSITIPATION Miscellaneous Information ([facility] Ordered Lab Info) 0 each OTHER ONCE ONE Stop: 03/16/18 03:46 Naloxone HCl (Narcan Inj) 0.4 mg IV.PUSH PRN PRN PRN Reason: Resp rate < 10 Ondansetron HCl (Zofran Inj) 4 mg IV.PUSH Q6H PRN PRN Reason: NAUSEA OR VOMITING Povidone Iodine (Betadine 5% Antisepsis Kit) 1 applicatio EACH NARE [employer]ROME WORKER [facility] Stop: 03/17/18 03:54 Senna/Docusate Sodium (Brunilda-Colace) 1 tab PO BID [facility] Last Admin: 03/15/18 20:14 Dose: 1 tab Sennosides (Senokot) 17.2 mg PO Q12H PRN PRN Reason: Moderate Constipation Temazepam (Restoril) 15 mg PO HS PRN PRN Reason: INSOMNIA Allergies Allergy/AdvReac Type Severity Reaction Status Date / Time No Known Allergies Allergy Verified 03/13/18 00:19 Exam Vital signs: Vital Signs 03/15/18 00:00 03/15/18 00:01 03/15/18 04:00 Temperature 97.2 F L 97.1 F L Pulse Rate 73 68 65 Respiratory Rate 18 18 18 Blood Pressure 103/51 L 124/61 Pulse Oximetry 95 97 97 03/15/18 08:00 03/15/18 10:14 03/15/18 12:00 Temperature 97.7 F 97.6 F Pulse Rate 67 75 71 Respiratory Rate 17 12 17 Blood Pressure 109/54 L 131/58 L Pulse Oximetry 96 96 98 03/15/18 16:00 03/15/18 16:50 Temperature 97.2 F L Pulse Rate 68 68 Respiratory Rate 17 12 Blood Pressure 147/63 H Pulse Oximetry 94 L Intake & Output 03/15/18 03/15/18 03/16/18 06:59 18:59 06:59 Intake Total 1955 / 1955 1100 / 1100 1999 Output Total 724 / 724 425 / 425 70 / 70 Balance 1231 / 1231 675 / 675 1930 / 1930 Weight 79.9 kg Intake: IV 1475 / 1475 100 / 100 1999 / 1999 D5W/1/2 NS Inj 1,000 ML @ 70 1000 / 1000 mls/hr IV.SIG .[id number] [facility] Rx#: [id number] LR 1000 mL Inj 1,000 ML @ 30 1000 / 1000 1000 / 1000 mls/hr IV.SIG .Q24H [facility] Rx#: [id number] Zosyn 4.5 GM Premix 4.5 gm In 200 / 200 100 / 100 100 ml @ 200 mls/hr IV.SIG Q6H [facility] Rx#:[id number] Vancomycin Inj 1,250 MG In NS 275 / 275 Inj 250 ML @ 250 mls/hr IV.SIG Q24H [facility] Rx#:[id number] Oral 480 / 480 1000 / 1000 Output: Urine 425 / 425 Urine Amount (Catheter) 600 / 600 Indwelling Urethral Catheter 600 / 600 Chest Tube Drainage 124 / 124 70 / 70 Left Pleural 124 / 124 70 / 70 Other: Date of Last Bowel Movement 03/12/18 - Constitutional no acute distress, average body habitus - Routine HEENT Exam Head: Present: normocephalic, atraumatic Eye: Present: EOMI, PERRL ENT: Present: mucous membranes moist, oropharynx clear, dentition normal - Routine Neck Exam Present: supple, full ROM - Routine Chest/Breast/Axilla Exam Chest wall: Present: chest tube (L sided with serosanf drainage) - Routine Respiratory Exam Present: decreased breath sounds (L side), rales (b/l) - Routine Cardiovascular Exam Present: RRR, S1, S2, irregular rhythm (extrasystolas) Comments: no murmurs rubs gallops, well perfused perifery - Routine Abdominal Exam Present: soft, normoactive bowel sounds Comments: not tender not distended no roganomegaly or masses - Routine Extremities Exam Comments: no cyanosis clubbing or edema - Routine Skin Exam Present: intact, warm, rash (on b/l ant thighs lichenifications) - Routine Neurological Exam Present: alert, oriented X3, moving all extremities, vision grossly intact, hearing grossly intact, normal speech - Routine Psychiatric Exam Present: normal affect, normal thought process, cooperative Results - Labs CBC & Chem 7: 03/17/18 06:26 03/17/18 09:29 Labs: Laboratory Results - last 24 hr 03/13/18 03/15/18 17:16 14:43 WBC 11.8 H RBC 4.00 Hgb 12.7 Hct 38.6 MCV 96.4 MCH 31.7 MCHC 32.9 RDW 13.6 Plt Count 294 MPV 7.8 Blood Type A Positive Blood Type Recheck Antibody Screen Negative MTS Gel Crossmatch See Detail - Imaging Chest X-Ray 03/14/18 10:01 CONCLUSION: Chest tube in place without evidence for pneumothorax. Assessment and Plan - Plan L sided PNA with parapneumonic effusion Clx negative with prior abx use Plan: for now cont current abx will dw pathologist fu clx untill finalfurther rec's to follow
[2018-03-16] MEDS: Piperacil/Tazo 4.5 GM Premix 4.5 GM/100 ML BAG IV.SIG SCH ×4 (00:10→20:34)
[2018-03-16] MEDS: Dextrose 5%/NaCl 0.45% Inj 1,000 ML IV.SIG SCH (00:13)
[2018-03-16] MEDS ORDERED: Pharmacy Ordered Lab Info OTHER ONE (03:45)
[2018-03-16] MEDS: Vancomycin Inj 1,250 MG in Sodium Chlor 0.9% Inj 250 ML IV.SIG SCH ×2 (04:53→15:01)
[2018-03-16] MEDS: Enoxaparin Inj 30 MG/0.3 ML Syringe SQ SCH (08:36)
[2018-03-16] MEDS: Senna/Docusate Sodium 8.6/50 MG Tablet PO SCH ×2 (08:38→20:32)
[2018-03-16] MEDS ORDERED: Dextrose 5%/NaCl 0.45% Inj 1,000 ML IV.CONT SCH (09:35)
--- NOTE | 2018-03-16 10:10 | P.PNIM ---
Subjective Interval history: Patient reports continued left-sided pleuritic chest pain with deep breathing. Reports shortness of breath is stable from before. Patient reports bilateral lower extremity edema worse over the past day.. Physical Exam Vital signs: Vital Signs 03/15/18 10:14 03/15/18 12:00 03/15/18 16:00 Temperature 97.6 F 97.2 F L Pulse Rate 75 71 68 Respiratory Rate 12 17 17 Blood Pressure 131/58 L 147/63 H Pulse Oximetry 96 98 94 L 03/15/18 16:50 03/15/18 19:00 03/15/18 20:20 Temperature 97.3 F L Pulse Rate 68 82 Respiratory Rate 12 17 Blood Pressure 179/85 H Pulse Oximetry 94 L 93 L 03/15/18 20:59 03/16/18 00:00 03/16/18 08:00 Temperature 97.7 F 98.1 F Pulse Rate 78 89 64 Respiratory Rate 16 17 18 Blood Pressure 142/75 H 152/82 H Pulse Oximetry 98 93 L Intake & Output 03/15/18 03/16/18 03/16/18 18:59 06:59 18:59 Intake Total 1200 / 1200 2340 / 2340 1375 / 1375 Output Total 425 / 425 150 / 150 Balance 775 / 775 2190 / 2190 1375 / 1375 Weight 80 kg Intake: IV 200 / 200 2100 / 2100 1375 / 1375 D5W/1/2 NS Inj 1,000 ML @ 70 1000 / 1000 mls/hr IV.SIG .[id number] TED Rx#: [id number] LR 1000 mL Inj 1,000 ML @ 30 1000 / 1000 1000 / 1000 mls/hr IV.SIG .Q24H TED Rx#: [id number] Zosyn 4.5 GM Premix 4.5 gm In 200 / 200 100 / 100 100 / 100 100 ml @ 200 mls/hr IV.SIG Q6H TED Rx#:[id number] Vancomycin Inj 1,250 MG In NS 275 / 275 Inj 250 ML @ 250 mls/hr IV.SIG Q24H TED Rx#:[id number] Oral 1000 / 1000 240 / 240 Output: Urine 425 / 425 Chest Tube Drainage 150 / 150 Left Pleural 150 / 150 Other: # Voids 4 Date of Last Bowel Movement 03/12/18 Narrative: GENERAL: Patient sitting up in bed. Talking full sentences. SKIN: Warm and dry. HEAD: Normocephalic. EYES: No scleral icterus. No injection or drainage. NECK: Supple, trachea midline. No JVD or lymphadenopathy. CARDIOVASCULAR: Regular rate and rhythm without murmurs, gallops, or rubs. RESPIRATORY: Patient with shallow breathing secondary to discomfort. Decreased breath sounds left lung base. GASTROINTESTINAL: Abdomen soft, non-tender, nondistended. MUSCULOSKELETAL: No cyanosis, or edema. BACK: Nontender without obvious deformity. No CVA tenderness. - Urinary Catheter Management Indwelling Urethral Catheter Cath placed during this visit: yes, but has since been removed by the nurse Reason for continuing: Hourly intake/output Insertion date: 03/14/18 Insertion time: 08:00 Removal date: 03/15/18 Removal time: 09:00 Results - Labs CBC & Chem 7: 03/15/18 14:43 03/14/18 12:35 Laboratory Results - last 24 hr 03/13/18 03/15/18 03/16/18 17:16 14:43 04:20 WBC 11.8 H RBC 4.00 Hgb 12.7 Hct 38.6 MCV 96.4 MCH 31.7 MCHC 32.9 RDW 13.6 Plt Count 294 MPV 7.8 Vancomycin Trough 10.8 H MTS Gel Crossmatch See Detail Microbiology 03/14/18 08:30 Fluid - Pleural fluid Gram Stain - Final 03/14/18 08:30 Fluid - Pleural fluid Body Fluid Culture - Preliminary No growth in 48 hours 03/14/18 08:30 Fluid - Pleural fluid Acid Fast Bacilli Smear - Final No acid fast bacilli seen 03/13/18 12:10 Blood - Peripheral Aerobic Blood Culture - Preliminary No growth in 2 days 03/13/18 12:10 Blood - Peripheral Anaerobic Blood Culture - Preliminary No growth in 2 days 03/13/18 12:15 Blood - Peripheral Aerobic Blood Culture - Preliminary No growth in 2 days 03/13/18 12:15 Blood - Peripheral Anaerobic Blood Culture - Preliminary No growth in 2 days 03/13/18 00:35 Blood - Peripheral Aerobic Blood Culture - Preliminary No growth in 2 days 03/13/18 00:35 Blood - Peripheral Anaerobic Blood Culture - Preliminary No growth in 2 days 03/13/18 00:40 Blood - Peripheral Aerobic Blood Culture - Preliminary No growth in 2 days 03/13/18 00:40 Blood - Peripheral Anaerobic Blood Culture - Preliminary No growth in 2 days 03/14/18 08:30 Fluid - Pleural fluid Fungal Smear - Final No fungal elements seen Assessment and Plan - Plan //Sepsis. //empyema -Blood cultures have been negative - pleural fluid cultures pending -still negative -Continue antibiotics. -Status post VATS and decortication and lysis of adhesions and chest tube placement POD 1 - CT surg as HELD OFF on thoracatomy for lung nodule bx at this time - BC's negative. - Pain control via PC pump -Pulmonology following = Patient continues with left-sided chest tube to suction. Pain control with DAUB COLOR MIXER as per cardiothoracic surgery. Appreciate cardiothoracic surgery, ID, pulmonology assistance. Follow-up fluid cultures. Patient instructed on incentive spirometry. //Bilateral lower extremity edema. DC IV fluids. //left lung nodule - further workup in future per pulmonology/CTS Discharge Planning: Continues on IV antibiotics for suspected empyema. Pathology, microbiology results pending We will need ID, CT surgery clearance. - Attending Attestation I spent 35 minutes [id number] with the patient or on the sneed discussing the patient's disposition, prognosis, and plan of care with her caregivers. Over half the time spent was devoted to counseling the patient regarding placement and coordinating care with caregivers and case management
--- NOTE | 2018-03-16 11:27 | XR ---
EXAM DATE: 03/16/2018 11:17 AM EDT AGE/SEX: 77 years / Female INDICATIONS: Pneumothorax. CLINICAL DATA: This is the patient's subsequent encounter. Patient reports that signs and symptoms h ave been present for 4 - 6 days and indicates a pain score of 4/10. MEDICAL/SURGICAL HISTORY: . Carcinoma, lung. None. COMPARISON: [facility] – [place], CHEST 1V SINGLE AP, 03/14/2018. . FINDINGS: The examination demonstrates a chest tube in place on the left. There is no residual pneumothorax. Th e tube appears well-positioned. There are atelectatic changes in the left lower lobe. The right lung is clear. The heart is normal in size. CONCLUSION: Left-sided chest tube in good position with no pneumothorax. Electronically signed by: Deandre Dorsey MD 03/16/2018 11:26 AM EDT
--- NOTE | 2018-03-16 14:12 | P.PNCV ---
- Note Subjective/Hospital Course: 03/14 surgery: 1. Left Video-Assisted Thoracoscopic Surgery (VATS). 2. Decortication 3. Lysis of adhesions with evacuation of loculated pleural effusion 4. 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 no air leak / chest tube drained 120cc/ 12 hrs will decrease IV fluids / chest tube drained 150cc/ will leave in today for removal in am need to be OOB, pulm toileting nebsw ezpap Objective: Vital Signs - 24 hr 03/15/18 16:00 03/15/18 16:50 03/15/18 19:00 Temperature 97.2 F L 97.3 F L Pulse Rate 68 68 82 Respiratory Rate 17 12 17 Blood Pressure 147/63 H 179/85 H Pulse Oximetry 94 L 94 L 03/15/18 20:20 03/15/18 20:59 03/16/18 00:00 Temperature 97.7 F Pulse Rate 78 89 Respiratory Rate 16 17 Blood Pressure 142/75 H Pulse Oximetry 93 L 98 03/16/18 08:00 03/16/18 09:36 Temperature 98.1 F Pulse Rate 64 Respiratory Rate 18 Blood Pressure 152/82 H Pulse Oximetry 93 L 93 L GENERAL: A&O x 3 SKIN: Warm and dry. incisions intact to posterior chest wall , HEAD: Normocephalic. EYES: No scleral icterus. No injection or drainage. NECK: Supple, trachea midline. No JVD or lymphadenopathy. CARDIOVASCULAR: Regular rate and rhythm without murmurs, gallops, or rubs. RESPIRATORY: Breath sounds equal bilaterally. No accessory muscle use. chest tube in place GASTROINTESTINAL: Abdomen soft, non-tender, nondistended. MUSCULOSKELETAL: No cyanosis, or edema. BACK: Nontender without obvious deformity. No CVA tenderness. Labs: Laboratory Results - last 12 hr 03/13/18 03/16/18 17:16 04:20 Vancomycin Trough 10.8 H MTS Gel Crossmatch See Detail Result Diagrams: 03/15/18 14:43 03/14/18 12:35 - Plan (2) S/P thoracotomy Plan: pulm toileting , nebs pain control OOB ambulate ok to ambulated off
--- NOTE | 2018-03-16 19:36 | P.PN ---
Subjective Interval history: She is feeling better. Chest tube still in. On O2 2 L Physical Exam Vital signs: Vital Signs 03/15/18 20:20 03/15/18 20:59 03/16/18 00:00 Temperature 97.7 F Pulse Rate 78 89 Respiratory Rate 16 17 Blood Pressure 142/75 H Pulse Oximetry 93 L 98 03/16/18 08:00 03/16/18 09:36 03/16/18 12:00 Temperature 98.1 F 97.7 F Pulse Rate 64 67 Respiratory Rate 18 18 Blood Pressure 152/82 H 182/80 H Pulse Oximetry 93 L 93 L 93 L 03/16/18 16:00 Temperature 97.2 F L Pulse Rate 78 Respiratory Rate 18 Blood Pressure 165/76 H Pulse Oximetry 94 L Intake & Output 03/16/18 03/16/18 03/17/18 06:59 18:59 06:59 Intake Total 2340 / 2340 3075 / 3075 Output Total 150 / 150 25 / 25 Balance 2190 / 2190 3075 / 3075 -25 / -25 Weight 80 kg Intake: IV 2100 / 2100 1475 / 1475 D5W/1/2 NS Inj 1,000 ML @ 70 1000 / 1000 mls/hr IV.SIG .[id number] TED Rx#: [id number] LR 1000 mL Inj 1,000 ML @ 30 1000 / 1000 1000 / 1000 mls/hr IV.SIG .Q24H TED Rx#: [id number] Zosyn 4.5 GM Premix 4.5 gm In 100 / 100 200 / 200 100 ml @ 200 mls/hr IV.SIG Q6H TED Rx#:[id number] Vancomycin Inj 1,250 MG In NS 275 / 275 Inj 250 ML @ 250 mls/hr IV.SIG Q24H TED Rx#:[id number] Oral 240 / 240 1600 / 1600 Output: Chest Tube Drainage 150 / 150 25 / 25 Left Pleural 150 / 150 25 / 25 Other: # Voids 4 6 Date of Last Bowel Movement 03/12/18 03/12/18 Narrative: GENERAL: Patient is alert and in no distress SKIN: Warm and dry. HEAD: Normocephalic. EYES: No scleral icterus. No injection or drainage. NECK: Supple, trachea midline. No JVD or lymphadenopathy. CARDIOVASCULAR: Regular rate and rhythm without murmurs, gallops, or rubs. RESPIRATORY: Occ Crackles left chest. Decreased breath sounds left lung base. GASTROINTESTINAL: Abdomen soft, non-tender, nondistended. MUSCULOSKELETAL: No cyanosis, or edema. BACK: Nontender without obvious deformity. No CVA tenderness. - Urinary Catheter Management Indwelling Urethral Catheter Cath placed during this visit: yes, but has since been removed by the nurse Reason for continuing: Hourly intake/output Insertion date: 03/14/18 Insertion time: 08:00 Removal date: 03/15/18 Removal time: 09:00 Results - Labs CBC & Chem 7: 03/15/18 14:43 03/14/18 12:35 Laboratory Results - last 24 hr 03/13/18 03/16/18 17:16 04:20 Vancomycin Trough 10.8 H MTS Gel Crossmatch See Detail Microbiology 03/13/18 12:10 Blood - Peripheral Aerobic Blood Culture - Preliminary No growth in 3 days 03/13/18 12:10 Blood - Peripheral Anaerobic Blood Culture - Preliminary No growth in 3 days 03/13/18 12:15 Blood - Peripheral Aerobic Blood Culture - Preliminary No growth in 3 days 03/13/18 12:15 Blood - Peripheral Anaerobic Blood Culture - Preliminary No growth in 3 days 03/13/18 00:35 Blood - Peripheral Aerobic Blood Culture - Preliminary No growth in 3 days 03/13/18 00:35 Blood - Peripheral Anaerobic Blood Culture - Preliminary No growth in 3 days 03/13/18 00:40 Blood - Peripheral Aerobic Blood Culture - Preliminary No growth in 3 days 03/13/18 00:40 Blood - Peripheral Anaerobic Blood Culture - Preliminary No growth in 3 days 03/14/18 08:30 Fluid - Pleural fluid Gram Stain - Final 03/14/18 08:30 Fluid - Pleural fluid Body Fluid Culture - Preliminary No growth in 48 hours - Imaging Impressions Chest X-Ray 03/16/18 00:00 CONCLUSION: Left-sided chest tube in good position with no pneumothorax. Assessment and Plan - Assessment (1) Empyema lung Code(s): J86.9 - Pyothorax without fistula Status: Acute (2) Lung nodule Code(s): R91.1 - Solitary pulmonary nodule Status: Acute (3) Pneumonia Code(s): J18.9 - Pneumonia, unspecified organism Status: Acute (4) Pneumothorax Code(s): J93.9 - Pneumothorax, unspecified Status: Acute (5) Intractable pain Code(s): R52 - Pain, unspecified Status: Acute (6) Pleural effusion Code(s): J90 - Pleural effusion, not elsewhere classified Status: Acute - Plan 1. Chest tube to drain. 2. Continue antibiotics . 3. O2 3 L. 4. Duoneb nebs qid. 5. CBC, CXR, BMP in am 6. IS q2h bedside 7. Chest Tube out in am (3) Pneumonia Qualifiers: Pneumonia type: due to unspecified organism Laterality: left Lung location: lower lobe of lung Qualified Code(s): J18.1 - Lobar pneumonia, unspecified organism
[2018-03-17] MEDS: Piperacil/Tazo 4.5 GM Premix 4.5 GM/100 ML BAG IV.SIG SCH ×5 (01:36→23:47)
[2018-03-17 08:05] LABS: Baso # (Auto) 0.1 th/mm3 (0.0-0.2); Baso % (Auto) 0.9 % (0.0-2.0); Eos # (Auto) 0.4 th/mm3 (0.0-0.4); Eos % (Auto) 6.6 % (0.0-4.0); Hematocrit 35.5 % (35.0-46.0); Hemoglobin 11.8 gm/dL (11.6-15.3); Lymph # (Auto) 1.3 th/mm3 (1.0-4.8); Lymph % (Auto) 19.4 % (9.0-44.0); Mean Corpuscular HGB Conc 33.4 % (32.0-36.0); Mean Corpuscular Hemoglobin 32.1 pg (27.0-34.0); Mean Corpuscular Volume 96.2 fL (80.0-100.0); Mean Platelet Volume 8.2 fL (7.0-11.0); Mono # (Auto) 0.5 th/mm3 (0.0-0.9); Mono % (Auto) 8.1 % (0.0-8.0); Neut # (Auto) 4.3 th/mm3 (1.8-7.7); Platelet Count 314 th/mm3 (150-450); Red Blood Count 3.69 mil/mm3 (4.00-5.30); Red Cell Distribution Width 13.6 % (11.6-17.2); White Blood Count 6.7 th/mm3 (4.0-11.0)
--- NOTE | 2018-03-17 09:26 | P.PN ---
Subjective Interval history: Patient seen and examined this morning, their vitals are stable and the patient is afebrile. Has been at bedside. Patient had some pain earlier today that improved with pain medication. Anxious to have chest tube removed. Physical Exam Vital signs: Vital Signs 03/16/18 09:36 03/16/18 12:00 03/16/18 16:00 Temperature 97.7 F 97.2 F L Pulse Rate 67 78 Respiratory Rate 18 18 Blood Pressure 182/80 H 165/76 H Pulse Oximetry 93 L 93 L 94 L 03/16/18 19:48 03/16/18 20:00 03/17/18 00:00 Temperature 97.9 F 97.8 F Pulse Rate 78 82 79 Respiratory Rate 18 17 16 Blood Pressure 143/72 H 153/68 H Pulse Oximetry 97 95 96 03/17/18 04:00 03/17/18 08:00 Temperature 97.9 F 97.4 F L Pulse Rate 69 67 Respiratory Rate 16 17 Blood Pressure 170/72 H 159/84 H Pulse Oximetry 95 93 L Intake & Output 03/16/18 03/17/18 03/17/18 18:59 06:59 18:59 Intake Total 3075 / 3075 200 / 200 Output Total 65 / 65 Balance 3075 / 3075 135 / 135 Intake: IV 1475 / 1475 200 / 200 LR 1000 mL Inj 1,000 ML @ 30 1000 / 1000 mls/hr IV.SIG .Q24H TED Rx#: [id number] Zosyn 4.5 GM Premix 4.5 gm In 200 / 200 200 / 200 100 ml @ 200 mls/hr IV.SIG Q6H TED Rx#:[id number] Vancomycin Inj 1,250 MG In NS 275 / 275 Inj 250 ML @ 250 mls/hr IV.SIG Q24H TED Rx#:[id number] Oral 1600 / 1600 Output: Chest Tube Drainage 65 / 65 Left Pleural 65 / 65 Other: # Voids 6 Date of Last Bowel Movement 03/12/18 Narrative: GENERAL: Patient is alert and in no distress SKIN: Warm and dry. HEAD: Normocephalic. EYES: No scleral icterus. No injection or drainage. NECK: Supple, trachea midline. No JVD or lymphadenopathy. CARDIOVASCULAR: Regular rate and rhythm without murmurs, gallops, or rubs. RESPIRATORY: Decreased breath sounds left lung base. GASTROINTESTINAL: Abdomen soft, non-tender, nondistended. MUSCULOSKELETAL: No cyanosis, or edema. BACK: Nontender without obvious deformity. No CVA tenderness. - Urinary Catheter Management Indwelling Urethral Catheter Cath placed during this visit: yes, but has since been removed by the nurse Reason for continuing: Hourly intake/output Insertion date: 03/14/18 Insertion time: 08:00 Removal date: 03/15/18 Removal time: 09:00 Results - Labs CBC & Chem 7: 03/17/18 06:26 03/14/18 12:35 Laboratory Results - last 24 hr 03/17/18 06:26 WBC 6.7 RBC 3.69 L Hgb 11.8 Hct 35.5 MCV 96.2 MCH 32.1 MCHC 33.4 RDW 13.6 Plt Count 314 MPV 8.2 Neut % (Auto) 65.0 Lymph % (Auto) 19.4 Rowan % (Auto) 8.1 H Eos % (Auto) 6.6 H Baso % (Auto) 0.9 Neut # (Auto) 4.3 Lymph # (Auto) 1.3 Rowan # (Auto) 0.5 Eos # (Auto) 0.4 Baso # (Auto) 0.1 WBC Differential . Differential Comment Auto diff final Hematology Comments Microbiology 03/14/18 08:30 Fluid - Pleural fluid Gram Stain - Final 03/14/18 08:30 Fluid - Pleural fluid Body Fluid Culture - Final No growth in 72 hours (aerobically and anaerobically ) 03/13/18 12:10 Blood - Peripheral Aerobic Blood Culture - Preliminary No growth in 3 days 03/13/18 12:10 Blood - Peripheral Anaerobic Blood Culture - Preliminary No growth in 3 days 03/13/18 12:15 Blood - Peripheral Aerobic Blood Culture - Preliminary No growth in 3 days 03/13/18 12:15 Blood - Peripheral Anaerobic Blood Culture - Preliminary No growth in 3 days 03/13/18 00:35 Blood - Peripheral Aerobic Blood Culture - Preliminary No growth in 3 days 03/13/18 00:35 Blood - Peripheral Anaerobic Blood Culture - Preliminary No growth in 3 days 03/13/18 00:40 Blood - Peripheral Aerobic Blood Culture - Preliminary No growth in 3 days 03/13/18 00:40 Blood - Peripheral Anaerobic Blood Culture - Preliminary No growth in 3 days - Imaging Impressions Chest X-Ray 03/16/18 00:00 CONCLUSION: Left-sided chest tube in good position with no pneumothorax. Assessment and Plan - Plan In summary this is a 77-year-old female patient with medical history significant for bronchitis, lung mass, left lung biopsy on February 28 with subsequent pneumothorax who was recently discharged from the hospital on March 04. She presented to [facility] with a 3 day history of worsening shortness of breath. The patient had an outpatient chest x-ray done which showed worsening left lower lobe pneumonia and early empyema. Sepsis on admission Pneumonia Left lung nodule Empyema -blood cultures negative to date -Pleural cultures negative to date -Patient is status post VATS and decortication and lysis of adhesion with chest tube placement (to come out in the am 8/4) -PC pump for pain control -Infectious disease is following, recommend to continue broad-spectrum antibiotics with Vantin Zosyn DVT prophylaxis with Lovenox Discharge Planning: DC is pending clearance by infectious disease and CT surgery
[2018-03-17] MEDS: Vancomycin Inj 1,250 MG in Sodium Chlor 0.9% Inj 250 ML IV.SIG SCH (09:58)
[2018-03-17] MEDS: Senna/Docusate Sodium 8.6/50 MG Tablet PO SCH ×2 (09:58→20:28)
[2018-03-17] MEDS: Enoxaparin Inj 30 MG/0.3 ML Syringe SQ SCH (09:58)
[2018-03-17 10:55] LABS: Albumin 2.2 g/dL (3.4-5.0); Phosphorus 3.6 mg/dL (2.5-4.9); Potassium 3.7 meq/L (3.5-5.1)
--- NOTE | 2018-03-17 12:24 | P.PNCV ---
- Note CVT: Post Op Day #: 3 Subjective/Hospital Course: 03/14 surgery: 1. Left Video-Assisted Thoracoscopic Surgery (VATS). 2. Decortication 3. Lysis of adhesions with evacuation of loculated pleural effusion 4. 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 no air leak / chest tube drained 120cc/ 12 hrs will decrease IV fluids 03/16 chest tube drained 150cc/ will leave in today for removal in am need to be OOB, pulm toileting jessica ezpap 03/17/18 doing well, c/o incisional pain Objective: Vital Signs - 24 hr 03/16/18 16:00 03/16/18 19:48 03/16/18 20:00 Temperature 97.2 F L 97.9 F Pulse Rate 78 78 82 Respiratory Rate 18 18 17 Blood Pressure 165/76 H 143/72 H Pulse Oximetry 94 L 97 95 03/17/18 00:00 03/17/18 04:00 03/17/18 08:00 Temperature 97.8 F 97.9 F 97.4 F L Pulse Rate 79 69 67 Respiratory Rate 16 16 17 Blood Pressure 153/68 H 170/72 H 159/84 H Pulse Oximetry 96 95 93 L 03/17/18 10:00 Temperature Pulse Rate 60 Respiratory Rate 16 Blood Pressure Pulse Oximetry Labs: Laboratory Results - last 12 hr 03/17/18 03/17/18 06:26 09:29 WBC 6.7 RBC 3.69 L Hgb 11.8 Hct 35.5 MCV 96.2 MCH 32.1 MCHC 33.4 RDW 13.6 Plt Count 314 MPV 8.2 Neut % (Auto) 65.0 Lymph % (Auto) 19.4 Christian % (Auto) 8.1 H Eos % (Auto) 6.6 H Baso % (Auto) 0.9 Neut # (Auto) 4.3 Lymph # (Auto) 1.3 Christian # (Auto) 0.5 Eos # (Auto) 0.4 Baso # (Auto) 0.1 WBC Differential . Differential Comment Auto diff final Hematology Comments Sodium 142 Potassium 3.7 Chloride 105 Carbon Dioxide 27.0 Anion Gap 10 BUN 6 L Creatinine 0.85 Estimated GFR 65 L Random Glucose 86 Calcium 9.0 Phosphorus 3.6 Albumin 2.2 L Result Diagrams: 03/17/18 06:26 03/17/18 09:29 Imaging: Chest X-Ray 03/16/18 00:00 CONCLUSION: Left-sided chest tube in good position with no pneumothorax. Cardiovascular: RRR Pulmonary: CTA Incision: dry and intact CT: ~40ml/12 hrs - Plan (2) S/P thoracotomy Plan: pulm toileting , nebs pain control OOB ambulate ok to ambulated off 02 D/C chest tube Discharge per ID and primary service Will sign-off unless there is an issue related to her surgery
--- NOTE | 2018-03-17 13:25 | P.PNID ---
Subjective Remarks: pt feels much better VATS and lysis of adhesions really helped her no fever clx negative @ 3 days no new problems Antibiotics: zosyn vanco Allergies/Adverse Reactions: Allergies No Known Allergies Allergy (Verified 03/13/18 00:19) Objective Vital Signs 03/16/18 16:00 03/16/18 19:48 03/16/18 20:00 Temperature 97.2 F L 97.9 F Pulse Rate 78 78 82 Respiratory Rate 18 18 17 Blood Pressure 165/76 H 143/72 H Pulse Oximetry 94 L 97 95 03/17/18 00:00 03/17/18 04:00 03/17/18 08:00 Temperature 97.8 F 97.9 F 97.4 F L Pulse Rate 79 69 67 Respiratory Rate 16 16 17 Blood Pressure 153/68 H 170/72 H 159/84 H Pulse Oximetry 96 95 93 L 03/17/18 10:00 Temperature Pulse Rate 60 Respiratory Rate 16 Blood Pressure Pulse Oximetry Intake & Output 03/16/18 03/17/18 03/17/18 18:59 06:59 18:59 Intake Total 3075 / 3075 200 / 200 375 / 375 Output Total 65 / 65 Balance 3075 / 3075 135 / 135 375 / 375 Intake: IV 1475 / 1475 200 / 200 375 / 375 LR 1000 mL Inj 1,000 ML @ 30 1000 / 1000 mls/hr IV.SIG .Q24H TED Rx#: [id number] Zosyn 4.5 GM Premix 4.5 gm In 200 / 200 200 / 200 100 / 100 100 ml @ 200 mls/hr IV.SIG Q6H TED Rx#:[id number] Vancomycin Inj 1,250 MG In NS 275 / 275 275 / 275 Inj 250 ML @ 250 mls/hr IV.SIG Q18H TED Rx#:[id number] Oral 1600 / 1600 Output: Chest Tube Drainage 65 / 65 Left Pleural 65 / 65 Other: # Voids 6 Date of Last Bowel Movement 03/12/18 03/13/18 12:10 Blood - Peripheral Aerobic Blood Culture - Preliminary No growth in 4 days 03/13/18 12:10 Blood - Peripheral Anaerobic Blood Culture - Preliminary No growth in 4 days 03/13/18 12:15 Blood - Peripheral Aerobic Blood Culture - Preliminary No growth in 4 days 03/13/18 12:15 Blood - Peripheral Anaerobic Blood Culture - Preliminary No growth in 4 days 03/13/18 00:35 Blood - Peripheral Aerobic Blood Culture - Preliminary No growth in 4 days 03/13/18 00:35 Blood - Peripheral Anaerobic Blood Culture - Preliminary No growth in 4 days 03/13/18 00:40 Blood - Peripheral Aerobic Blood Culture - Preliminary No growth in 4 days 03/13/18 00:40 Blood - Peripheral Anaerobic Blood Culture - Preliminary No growth in 4 days 03/14/18 08:30 Fluid - Pleural fluid Gram Stain - Final 03/14/18 08:30 Fluid - Pleural fluid Body Fluid Culture - Final No growth in 72 hours (aerobically and anaerobically ) 03/14/18 08:30 Fluid - Pleural fluid Acid Fast Bacilli Smear - Final No acid fast bacilli seen 03/14/18 08:30 Fluid - Pleural fluid Mycobacterial Culture - Pending 03/14/18 08:30 Fluid - Pleural fluid Fungal Smear - Final No fungal elements seen 03/14/18 08:30 Fluid - Pleural fluid Fungal Culture - Pending Lab - Hematology Results 03/15/18 03/17/18 14:43 06:26 WBC 11.8 H 6.7 RBC 4.00 3.69 L Hgb 12.7 11.8 Hct 38.6 35.5 MCV 96.4 96.2 MCH 31.7 32.1 MCHC 32.9 33.4 RDW 13.6 13.6 Plt Count 294 314 MPV 7.8 8.2 Neut % (Auto) 65.0 Lymph % (Auto) 19.4 Cloud % (Auto) 8.1 H Eos % (Auto) 6.6 H Baso % (Auto) 0.9 Neut # (Auto) 4.3 Lymph # (Auto) 1.3 Cloud # (Auto) 0.5 Eos # (Auto) 0.4 Baso # (Auto) 0.1 WBC Differential . Differential Comment Auto diff final Hematology Comments Lab - Chemistry Results 03/17/18 09:29 Sodium 142 Potassium 3.7 Chloride 105 Carbon Dioxide 27.0 Anion Gap 10 BUN 6 L Creatinine 0.85 Estimated GFR 65 L Random Glucose 86 Calcium 9.0 Phosphorus 3.6 Albumin 2.2 L Imaging: ITS Impressions Chest X-Ray 03/16/18 00:00 CONCLUSION: Left-sided chest tube in good position with no pneumothorax. Physical Exam: GENERAL: NAD SKIN: Warm and dry. HEAD: Atraumatic. Normocephalic. EYES: Pupils equal and round. No scleral icterus. No injection or drainage. ENT: No nasal bleeding or discharge. Mucous membranes pink and moist. NECK: Trachea midline. No JVD. CARDIOVASCULAR: Regular rate and rhythm. RESPIRATORY: No accessory muscle use. Prominent L side crackles to auscultation. L sided CT in place with serosang drainage Breath sounds equal bilaterally. GASTROINTESTINAL: Abdomen soft, non-tender, nondistended. Hepatic and splenic margins not palpable. MUSCULOSKELETAL: Extremities without clubbing, cyanosis, or edema. No obvious deformities. NEUROLOGICAL: Awake and alert. No obvious cranial nerve deficits. Motor grossly within normal limits. Five out of 5 muscle strength in the arms and legs. Normal speech. PSYCHIATRIC: Appropriate mood and affect; insight and judgment normal. Assessment and Plan - Plan L sided PNA with parapneumonic effusion Clx negative with prior abx use dw pathologist. No granulomas No cultures available from lung bx Most likely i Plan: Once ready to be d/c'd home by primary team and other providers switch to augmentin 500 mg PO BID to complete 14 days Longer treatment if persistent symptoms dw with pt, spouse @ b/s
--- NOTE | 2018-03-17 14:29 | P.PN ---
Subjective Interval history: She is still having pain in chest. Chest tube is in. No fever. Physical Exam Vital signs: Vital Signs 03/16/18 16:00 03/16/18 19:48 03/16/18 20:00 Temperature 97.2 F L 97.9 F Pulse Rate 78 78 82 Respiratory Rate 18 18 17 Blood Pressure 165/76 H 143/72 H Pulse Oximetry 94 L 97 95 03/17/18 00:00 03/17/18 04:00 03/17/18 08:00 Temperature 97.8 F 97.9 F 97.4 F L Pulse Rate 79 69 67 Respiratory Rate 16 16 17 Blood Pressure 153/68 H 170/72 H 159/84 H Pulse Oximetry 96 95 93 L 03/17/18 10:00 03/17/18 10:05 03/17/18 12:00 Temperature 97.4 F L Pulse Rate 60 74 Respiratory Rate 16 18 Blood Pressure 128/77 Pulse Oximetry 93 L 94 L Intake & Output 03/16/18 03/17/18 03/17/18 18:59 06:59 18:59 Intake Total 3075 / 3075 200 / 200 475 / 475 Output Total 65 / 65 Balance 3075 / 3075 135 / 135 475 / 475 Intake: IV 1475 / 1475 200 / 200 475 / 475 LR 1000 mL Inj 1,000 ML @ 30 1000 / 1000 mls/hr IV.SIG .Q24H TED Rx#: [id number] Zosyn 4.5 GM Premix 4.5 gm In 200 / 200 200 / 200 200 / 200 100 ml @ 200 mls/hr IV.SIG Q6H TED Rx#:[id number] Vancomycin Inj 1,250 MG In NS 275 / 275 275 / 275 Inj 250 ML @ 250 mls/hr IV.SIG Q18H TED Rx#:[id number] Oral 1600 / 1600 Output: Chest Tube Drainage 65 / 65 Left Pleural 65 / 65 Other: # Voids 6 Date of Last Bowel Movement 03/12/18 03/14/18 Narrative: GENERAL: Elderly Patient is alert and in no distress SKIN: Warm and dry. HEAD: Normocephalic. EYES: No scleral icterus. No injection or drainage. NECK: Supple, trachea midline. No JVD or lymphadenopathy. CARDIOVASCULAR: Regular rate and rhythm without murmurs, gallops, or rubs. RESPIRATORY: Decreased breath sounds left lung base.Occ wheeze. GASTROINTESTINAL: Abdomen soft, non-tender, nondistended. MUSCULOSKELETAL: No cyanosis, or edema. BACK: Nontender without obvious deformity. No CVA tenderness. - Urinary Catheter Management Indwelling Urethral Catheter Cath placed during this visit: yes, but has since been removed by the nurse Reason for continuing: Hourly intake/output Insertion date: 03/14/18 Insertion time: 08:00 Removal date: 03/15/18 Removal time: 09:00 Results - Labs CBC & Chem 7: 03/17/18 06:26 03/17/18 09:29 Laboratory Results - last 24 hr 03/17/18 03/17/18 06:26 09:29 WBC 6.7 RBC 3.69 L Hgb 11.8 Hct 35.5 MCV 96.2 MCH 32.1 MCHC 33.4 RDW 13.6 Plt Count 314 MPV 8.2 Neut % (Auto) 65.0 Lymph % (Auto) 19.4 [place] % (Auto) 8.1 H Eos % (Auto) 6.6 H Baso % (Auto) 0.9 Neut # (Auto) 4.3 Lymph # (Auto) 1.3 [place] # (Auto) 0.5 Eos # (Auto) 0.4 Baso # (Auto) 0.1 WBC Differential . Differential Comment Auto diff final Hematology Comments Sodium 142 Potassium 3.7 Chloride 105 Carbon Dioxide 27.0 Anion Gap 10 BUN 6 L Creatinine 0.85 Estimated GFR 65 L Random Glucose 86 Calcium 9.0 Phosphorus 3.6 Albumin 2.2 L Microbiology 03/13/18 12:10 Blood - Peripheral Aerobic Blood Culture - Preliminary No growth in 4 days 03/13/18 12:10 Blood - Peripheral Anaerobic Blood Culture - Preliminary No growth in 4 days 03/13/18 12:15 Blood - Peripheral Aerobic Blood Culture - Preliminary No growth in 4 days 03/13/18 12:15 Blood - Peripheral Anaerobic Blood Culture - Preliminary No growth in 4 days 03/13/18 00:35 Blood - Peripheral Aerobic Blood Culture - Preliminary No growth in 4 days 03/13/18 00:35 Blood - Peripheral Anaerobic Blood Culture - Preliminary No growth in 4 days 03/13/18 00:40 Blood - Peripheral Aerobic Blood Culture - Preliminary No growth in 4 days 03/13/18 00:40 Blood - Peripheral Anaerobic Blood Culture - Preliminary No growth in 4 days 03/14/18 08:30 Fluid - Pleural fluid Gram Stain - Final 03/14/18 08:30 Fluid - Pleural fluid Body Fluid Culture - Final No growth in 72 hours (aerobically and anaerobically ) Assessment and Plan - Assessment (1) Empyema lung Code(s): J86.9 - Pyothorax without fistula Status: Acute (2) Lung nodule Code(s): R91.1 - Solitary pulmonary nodule Status: Acute (3) Pneumonia Code(s): J18.9 - Pneumonia, unspecified organism Status: Acute (4) Pneumothorax Code(s): J93.9 - Pneumothorax, unspecified Status: Acute (5) Intractable pain Code(s): R52 - Pain, unspecified Status: Acute (6) Pleural effusion Code(s): J90 - Pleural effusion, not elsewhere classified Status: Acute - Plan 1. D/C Chest tube per Dr Dominguez 2. Continue antibiotics and switch to Po in am 3. O2 2 L.PRN 4. Duoneb nebs qid. 5. CBC, CXR, BMP in am 6. IS q2h bedside 7. Up with help. (3) Pneumonia Qualifiers: Pneumonia type: due to unspecified organism Laterality: left Lung location: lower lobe of lung Qualified Code(s): J18.1 - Lobar pneumonia, unspecified organism
[2018-03-18] MEDS: Enoxaparin Inj 30 MG/0.3 ML Syringe SQ SCH (08:37)
[2018-03-18] MEDS: Piperacil/Tazo 4.5 GM Premix 4.5 GM/100 ML BAG IV.SIG SCH (08:37)
[2018-03-18] MEDS: Senna/Docusate Sodium 8.6/50 MG Tablet PO SCH (08:38)
--- NOTE | 2018-03-18 08:54 | P.PN ---
Subjective Interval history: Patient seen and examined this morning, their vitals are stable and the patient is afebrile. Patient denies any pain, states she slept well overnight. She and her were dancing around the room this am. Denies any difficulty breathing, are very anxious to go home. Physical Exam Vital signs: Vital Signs 03/17/18 10:00 03/17/18 10:05 03/17/18 12:00 Temperature 97.4 F L Pulse Rate 60 74 Respiratory Rate 16 18 Blood Pressure 128/77 Pulse Oximetry 93 L 94 L 03/17/18 16:00 03/17/18 20:32 03/17/18 21:11 Temperature 98.0 F 98.5 F Pulse Rate 106 H 88 Respiratory Rate 18 16 Blood Pressure 142/70 H 141/70 H Pulse Oximetry 94 L 94 L 93 L 03/18/18 00:22 Temperature 98.2 F Pulse Rate 88 Respiratory Rate 18 Blood Pressure 128/77 Pulse Oximetry 94 L Intake & Output 03/17/18 03/18/18 03/18/18 18:59 06:59 18:59 Intake Total 1300 / 1300 580 / 580 100 / 100 Balance 1300 / 1300 580 / 580 100 / 100 Weight 80 kg Intake: IV 725 / 725 0 / 0 100 / 100 Zosyn 4.5 GM Premix 4.5 gm In 200 / 200 0 / 0 100 / 100 100 ml @ 200 mls/hr IV.SIG Q6H TED Rx#:[id number] Vancomycin Inj 1,250 MG In NS 275 / 275 Inj 250 ML @ 250 mls/hr IV.SIG Q18H TED Rx#:[id number] Oral 575 / 575 580 / 580 Other: # Voids 5 3 Date of Last Bowel Movement 03/14/18 # Bowel Movements 0 Narrative: GENERAL: Elderly Patient is alert and in no distress SKIN: Warm and dry. Two incisions on back, one is well healed, one is bandaged and is slightly large, no signs of infection, not completely healed/closed HEAD: Normocephalic. EYES: No scleral icterus. No injection or drainage. NECK: Supple, trachea midline. No JVD or lymphadenopathy. CARDIOVASCULAR: Regular rate and rhythm without murmurs, gallops, or rubs. RESPIRATORY: Decreased breath sounds left lung base, no increased work of breathing GASTROINTESTINAL: Abdomen soft, non-tender, nondistended. MUSCULOSKELETAL: No cyanosis, or edema. BACK: Nontender without obvious deformity. No CVA tenderness. - Urinary Catheter Management Indwelling Urethral Catheter Cath placed during this visit: yes, but has since been removed by the nurse Reason for continuing: Hourly intake/output Insertion date: 03/14/18 Insertion time: 08:00 Removal date: 03/15/18 Removal time: 09:00 Results - Labs CBC & Chem 7: 03/17/18 06:26 03/17/18 09:29 Laboratory Results - last 24 hr 03/17/18 09:29 Sodium 142 Potassium 3.7 Chloride 105 Carbon Dioxide 27.0 Anion Gap 10 BUN 6 L Creatinine 0.85 Estimated GFR 65 L Random Glucose 86 Calcium 9.0 Phosphorus 3.6 Albumin 2.2 L Microbiology 03/13/18 12:10 Blood - Peripheral Aerobic Blood Culture - Preliminary No growth in 4 days 03/13/18 12:10 Blood - Peripheral Anaerobic Blood Culture - Preliminary No growth in 4 days 03/13/18 12:15 Blood - Peripheral Aerobic Blood Culture - Preliminary No growth in 4 days 03/13/18 12:15 Blood - Peripheral Anaerobic Blood Culture - Preliminary No growth in 4 days 03/13/18 00:35 Blood - Peripheral Aerobic Blood Culture - Preliminary No growth in 4 days 03/13/18 00:35 Blood - Peripheral Anaerobic Blood Culture - Preliminary No growth in 4 days 03/13/18 00:40 Blood - Peripheral Aerobic Blood Culture - Preliminary No growth in 4 days 03/13/18 00:40 Blood - Peripheral Anaerobic Blood Culture - Preliminary No growth in 4 days 03/14/18 08:30 Fluid - Pleural fluid Gram Stain - Final 03/14/18 08:30 Fluid - Pleural fluid Body Fluid Culture - Final No growth in 72 hours (aerobically and anaerobically ) Assessment and Plan - Plan In summary this is a 77-year-old female patient with medical history significant for bronchitis, lung mass, left lung biopsy on February 28 with subsequent pneumothorax who was recently discharged from the hospital on March 04. She presented to [place] [facility] with a 3 day history of worsening shortness of breath. The patient had an outpatient chest x-ray done which showed worsening left lower lobe pneumonia and early empyema. Sepsis on admission Pneumonia Left lung nodule Empyema -blood cultures negative to date -Pleural cultures negative to date -CT surgery following: Patient is status post VATS and decortication and lysis of adhesion with chest tube placement, chest tube removed. Repeat CXR this am -Patient denies any pain -Infectious disease is following: When ready to be DC'd may switch to Augmentin 500 p.o. twice daily for 14 days DVT prophylaxis with Lovenox Discharge Planning: PT reccommends home with home health, d/c this afternoon after CXR
[2018-03-18] MEDS ORDERED: Amoxicillin/Clavulanate 500/125 MG Tablet PO SCH (09:00)
--- NOTE | 2018-03-18 10:58 | XR ---
EXAM DATE: 03/18/2018 10:50 AM EDT AGE/SEX: 77 years / Female INDICATIONS: S/P chest tube removal. CLINICAL DATA: This is the patient's subsequent encounter. Patient reports that signs and symptoms h ave been present for 1 day and indicates a pain score of 0/10. MEDICAL/SURGICAL HISTORY: . Carcinoma, lung. None. [place] [facility] [place]. . FINDINGS: Single upright AP view of the chest demonstrates interval removal of a left-sided chest tube. No evid ence of pneumothorax. There is hypoinflation of the lungs with persistent mild left basilar atelectas is. Heart size is grossly normal. Pulmonary vasculature is normal. CONCLUSION: Interval removal of chest tube. No evidence of pneumothorax. Electronically signed by: Aziza Tobar MD 03/18/2018 10:57 AM EDT
--- NOTE | 2018-03-18 11:42 | P.DCO ---
- Physical Therapy Order: Evaluate and treat, Improve ambulation, Strength and gait training - Occupational Therapy Order: Evaluate and treat, Improve ADL - Home Health Nursing Order: Medical education, Signs/symptoms of disease process, Wound care and dressing changes - Certification I have seen patient Gian Ruiz on 03/18/18. My clinical findings support the need for the requested home health care services because: Deconditioned with increased weakness I certify that my clinical findings support that this patient is homebound because: Unsteady gait/balance
--- NOTE | 2018-03-18 12:38 | P.DS ---
Date of admission: 03/13/18 01:34 Primary care physician: UNKNOWN Brief History from admission: 77-year-old female with a history of bronchitis, lung mass, left lung biopsy , with subsequent pneumothorax, recently discharged on 03/04. She presents with a 3 day history of progressively worsening shortness of breath, cough productive of minimal sputum. Reports pleuritic left-sided chest pain. Chest x -ray done as outpatient today reportedly shows worsening left lower lobe pneumonia which patient was told to return back to the hospital. She denies any fevers, chills. She does report progressively worsening fatigue however. DS: Medications - Discharge Medications Prescriptions: amoxicillin-pot clavulanate [Augmentin] 1 tab PO Q12HR 14 Days tab DS: Summary Hospital Course: In summary this is a 77-year-old female patient with medical history significant for bronchitis, lung mass, left lung biopsy on February 28 with subsequent pneumothorax who was recently discharged from the hospital on March 04. She presented to [place] [facility] with a 3 day history of worsening shortness of breath. The patient had an outpatient chest x-ray done which showed worsening left lower lobe pneumonia and early empyema. She underwent VATS and decortication with lysis of adhesions with chest tube placement. Chest tube eventually removed, repeat CXR stable, patient deemed medically stable for DC. IV abx were switched to PO per ID recommendations (dc on Augmentin for 14 days). - Time Spent with Patient Total time spent providing and/or coordinating discharge services: Greater than 30 minutes - Quality: VTE Deep Vein Thrombosis/Pulmonary Embolism Present on Admission: No Exam Vital signs: Vital Signs 03/17/18 16:00 03/17/18 20:32 03/17/18 21:11 Temperature 98.0 F 98.5 F Pulse Rate 106 H 88 Respiratory Rate 18 16 Blood Pressure 142/70 H 141/70 H Pulse Oximetry 94 L 94 L 93 L 03/18/18 00:22 03/18/18 08:00 Temperature 98.2 F 96.6 F L Pulse Rate 88 89 Respiratory Rate 18 17 Blood Pressure 128/77 127/78 Pulse Oximetry 94 L 91 L Intake & Output 03/17/18 03/18/18 03/18/18 18:59 06:59 18:59 Intake Total 1300 / 1300 580 / 580 100 / 100 Balance 1300 / 1300 580 / 580 100 / 100 Weight 80 kg Intake: IV 725 / 725 0 / 0 100 / 100 Zosyn 4.5 GM Premix 4.5 gm In 200 / 200 0 / 0 100 / 100 100 ml @ 200 mls/hr IV.SIG Q6H TDE Rx#:[id number] Vancomycin Inj 1,250 MG In NS 275 / 275 Inj 250 ML @ 250 mls/hr IV.SIG Q18H TED Rx#:[id number] Oral 575 / 575 580 / 580 Other: # Voids 5 3 Date of Last Bowel Movement 03/14/18 03/18/18 # Bowel Movements 0 Results Procedures completed during hospitalization: VATS and decortication and lysis of adhesion with chest tube placement by CT surgery - Impressions ITS Impressions Chest X-Ray 03/18/18 00:00 CONCLUSION: Interval removal of chest tube. No evidence of pneumothorax. Discharge Plan - Discharge Disposition Patient Disposition: W/Home Health Service - Discharge Condition Condition: Stable - Discharge Order Discharge Orders: Discharge Order (Routine); Ordered 03/18/18 Ordered By: Quynh Thompson - Discharge Details Anticipated Discharge Date: 03/18/18 - Physicians Team Primary Care Provider: UNKNOWN, Attending Provider: Quynh Thompson Other Providers: Timi Wilson MD ; Jerry Dominguez MD ; Breanna Landin MD
[2018-03-18] MEDS ORDERED: Pharmacy Ordered Lab Info OTHER SCH (20:45)
[2018-03-20 18:11] VITALS: BP 127/78; PULSE 89; TEMP 96.6
[2018-03-20 18:24] VITALS: O2SAT 91
[2018-03-20 18:43] VITALS: RESP 17
== END 2018-03-18 12:22 | disposition home health service (06) ==
LOC: NEPC 21:21 → NEDA 03-13 01:34 → N07 03-13 03:19
PROVIDERS: ADMIT Family Medicine; ATTEND Family Medicine

== ENCOUNTER 2018-03-20 23:47 | Inpatient (IN) ==
[2018-03-21] MEDS ORDERED: Sodium Chlor 0.9% Inj 500 ML IV.SIG ONE ×2 (02:41→04:26)
[2018-03-21 03:10] LABS: Baso # (Auto) 0.2 th/mm3 (0.0-0.2); Baso % (Auto) 2.5 % (0.0-2.0); Eos # (Auto) 0.3 th/mm3 (0.0-0.4); Eos % (Auto) 4.3 % (0.0-4.0); Hematocrit 32.6 % (35.0-46.0); Hemoglobin 11.3 gm/dL (11.6-15.3); Lymph # (Auto) 1.3 th/mm3 (1.0-4.8); Lymph % (Auto) 17.9 % (9.0-44.0); Mean Corpuscular HGB Conc 34.7 % (32.0-36.0); Mean Corpuscular Hemoglobin 32.8 pg (27.0-34.0); Mean Corpuscular Volume 94.4 fL (80.0-100.0); Mean Platelet Volume 7.2 fL (7.0-11.0); Mono # (Auto) 0.6 th/mm3 (0.0-0.9); Mono % (Auto) 8.3 % (0.0-8.0); Neut # (Auto) 4.8 th/mm3 (1.8-7.7); Platelet Count 301 th/mm3 (150-450); Red Blood Count 3.45 mil/mm3 (4.00-5.30); Red Cell Distribution Width 13.2 % (11.6-17.2); White Blood Count 7.1 th/mm3 (4.0-11.0)
[2018-03-21 03:20] LABS: INR 1.1 Ratio; Prothrombin Time 10.7 sec (9.8-11.6)
[2018-03-21 03:27] LABS: Alanine Aminotransferase 61 U/L (10-53); Albumin 2.6 g/dL (3.4-5.0); Anion Gap 13 meq/L (5-15); Aspartate Aminotransferase 20 U/L (15-37); Blood Urea Nitrogen 19 mg/dL (7-18); Calcium 8.6 mg/dL (8.5-10.1); Carbon Dioxide 23.5 meq/L (21.0-32.0); Chloride 106 meq/L (98-107); Glomerular Filtration Rate 20 mL/min (>89); Glucose,Random 87 mg/dL (74-106); Magnesium 2.7 mg/dL (1.5-2.5); Potassium 3.7 meq/L (3.5-5.1); Sodium 142 meq/L (136-145)
--- NOTE | 2018-03-21 03:29 | XR ---
EXAM DATE: 03/21/2018 3:05 AM EDT AGE/SEX: 77 years / Female INDICATIONS: Cough. CLINICAL DATA: This is the patient's initial encounter. Patient reports that signs and symptoms have been present for 1 day and indicates a pain score of 0/10. MEDICAL/SURGICAL HISTORY: Carcinoma, lung. None. COMPARISON: [facility] – [place] CHEST 1V SINGLE AP, 03/18/2018. . FINDINGS: Left lower lobe airspace disease. Right lung is clear. Cardiomegaly. Osseous structures are intact. CONCLUSION: Left lower lobe airspace disease. Electronically signed by: Daniel Dunham MD 03/21/2018 3:28 AM EDT
[2018-03-21 03:31] LABS: Alkaline Phosphatase 91 U/L (45-117); Creatine Kinase 25 U/L (26-192); Total Protein 6.7 g/dL (6.4-8.2)
--- NOTE | 2018-03-21 04:12 | ED ---
HPI General Chief complaint: Respiratory Symptoms Stated complaint: High Blood Pres./Chest Pain Time Seen by Provider: 03/21/18 02:05 Source: patient, family and old records reviewed Limitations: no limitations History of Present Illness HPI narrative: The patient is a 77 year old female who presents to the [facility] emergency department with a history of being discharged from the hospital on Monday after an admission for pneumonia associated with a lung mass and pneumothorax status post lung biopsy. The patient reports that she was discharged home on Augmentin. She reports that she has not been eating or drinking because of a terrible taste in her mouth. Her family reports that it has been difficult to get her to drink any fluids. She has also been experiencing generalized fatigue. The patient reports that she had very little pain in her left side of her back when she was discharged. The patient reports that this is the site that she had a chest tube placed in a surgical procedure done by Dr. Dominguez, the cardiothoracic surgeon. She reports that at 3 AM on Monday she had sudden onset of pain again in the left side of her back. She reports that the pain is a dull pain that is 8 out of 10 in severity currently. She reports that it has been constant and waxing and waning in severity. She reports that she last took hydrocodone at 8:30 AM related to the pain on Monday. She denies having any recurrent fevers or chills. She denies having any worsening. She reports that the pain does get worse with taking a deep breath. She denies having any calf pain or erythema. She denies having any prior history of DVT or pulmonary embolism. On review of systems otherwise, she denies having any neck pain, abdominal pain, vomiting, diarrhea, urinary symptoms, or neurologic symptoms. She reports that she last moved her bowels earlier today. She denies having any blood in her stool or black or tarry stools. The patient's family report that they were concerned that the patient' s blood pressure over the last several hours has also been quite elevated in the 180s systolic. The patient has no prior history of hypertension and normally has a blood pressure systolic of 120. Related Data Previous Rx's Medication Instructions Recorded cyclobenzaprine 10 mg PO Q8H #15 tab 03/04/18 amoxicillin-pot clavulanate 1 tab PO Q12HR 14 Days tab 03/18/18 [Augmentin] diphenhydramine HCl 25 mg PO Q6H PRN cap 03/18/18 Allergies Allergy/AdvReac Type Severity Reaction Status Date / Time No Known Allergies Allergy Verified 03/13/18 00:19 Review of Systems ROS: all other systems reviewed are negative (Except for that which is mentioned in the HPI) [facility] Social History Social History Substance History: No History of Abuse Second Hand Smoke Exposure: No Smoking Status: Former smoker Tobacco Type: Cigarettes How Often Do You Have a Drink Containing Alcohol: 4 or more times a week Immunization History Tetanus Immunization: Unsure Hx Influenza Vaccine This Season: No Exam Const General: cooperative, well developed and acute distress (Related to reported pain in the left posterior upper thorax) mild Nutritional Appearance: well nourished Orientation: alert, awake and oriented x3 HENMT Head: normocephalic and atraumatic Nose: no nasal discharge and no epistaxis Mouth: moist mucous membranes Throat: posterior oropharynx normal and uvula midline Eyes Sclera: normal sclerae Pupils: PERRL Neck Neck: no meningeal signs, trachea midline and no JVD Chest Chest: other Resp Effort & Inspection: no use of accessory muscles Auscultation: not clear to auscultation bilaterally ( There is no surrounding erythema, edema, no Tenderness on palpation of the site. The patient is clear to auscultation on the right, crackles audible in the left lower lung base, no rhonchi, no wheezes. No accessory muscle use noted. No tripoding. No paroxysmal abdominal breathing.) Cardio Rate: regular rate Rhythm: regular rhythm Heart Sounds: no murmurs GI Inspection: non-distended Palpation: soft, no hepatosplenomegaly and nontender Auscultation: normal bowel sounds Back/Spine/Pelvis Back: no CVA tenderness Skin General: dry skin (warm) Neuro General: alert, awake and oriented x3 Cranial Nerves: other (No facial asymmetry.) Speech: speech normal Motor: no movement abnormalities noted Extrem General: normal to inspection (No calf tenderness on palpation. Negative Homans sign. No palpable cords. 2+ pulses in all 4 extremities.), no clubbing , no cyanosis and no edema Psych Mood: congruent mood Affect: normal affect Judgment: judgment good Course Reevaluation(s) Reevaluation #1: Patient on reevaluation continue to have pain after Percocet administration. The patient will be given hydromorphone 0.5 mg IV. Consultations Consultation #1: The patient's case including history, pertinent physical examination findings, and laboratory studies were discussed with Dr. Gustafson. It was agreed that the patient would be admitted to the hospitalist service. Initial Documented Vital Signs Temperature 97.6 F 03/21/18 00:09 Pulse Rate 60 03/21/18 00:09 Respiratory Rate 16 03/21/18 00:09 Blood Pressure 176/88 H 03/21/18 00:09 Pulse Oximetry 95 03/21/18 00:09 Last Documented Vital Signs Temperature 97.6 F 03/21/18 00:09 Pulse Rate 65 03/21/18 05:05 Respiratory Rate 18 03/21/18 05:05 Blood Pressure 170/77 H 03/21/18 05:05 Pulse Oximetry 99 03/21/18 05:05 Medical Decision Making MDM Narrative Medical decision making narrative: During the course of the patient's emergency department visit, the patient's history, examination, and differential diagnosis were reviewed with the patient. The patient was placed on a compliance monitor with oximetry and frequent blood pressure monitoring. The patient had IV access obtained and blood work sent for analysis. Diagnostic evaluation was started regarding the patient's recurrent severe left-sided posterior thorax The patient was initially provided Percocet 5 mg p.o. 1 and she reports that this helped in the past with her pain more than morphine did. The patient was given Compazine 5 mg IV for nausea, normal saline at 500 mL bolus was started. When the patient continued to have pain, the patient was given hydromorphone 0.5 mg IV. The patient's diagnostic studies were remarkable for a white count of 7.1, platelets 301, monocytes 8.3, hemoglobin 11.3, PT 10.7, PTT 28, chemistry is remarkable for troponin I of less than 0.02 with a CPK of 25, magnesium 2.7, creatinine is elevated at 2.3 consistent with acute renal failure given her prior creatinine of 0.85 on March 17. The patient was given a second 500 mL IV fluid bolus. The patient will be admitted for dehydration associated with acute renal failure. BUN is 19, BNP is 138, ALT 61, albumin 2.6. The patient' s chest x-ray reveals left lower lobe airspace disease, no other acute abnormality. The patient's results were discussed with the patient, including the plan of care. I explained that further testing and/ or monitoring is indicated based on the patient's history, examination, and/ or laboratory findings. Therefore, I recommended admission for additional evaluation. The patient expressed understanding and was agreeable with this plan. The patient was admitted to the hospital in stable condition and sent to a bed under the care of the service. Differential Diagnosis Differential Diagnosis: Recurrent pneumothorax, versus progression of pneumonia , versus pleurisy, versus acute coronary syndrome Lab Data Result diagrams: 03/21/18 03:00 03/21/18 03:00 Lab Results 03/21/18 03/21/18 03/21/18 Range/Units 03:00 03:00 03:00 WBC 7.1 (4.0-11.0) th/mm3 RBC 3.45 L (4.00-5.30) mil/mm3 Hgb 11.3 L (11.6-15.3) gm/dL Hct 32.6 L (35.0-46.0) % MCV 94.4 (80.0-100.0) fL MCH 32.8 (27.0-34.0) pg MCHC 34.7 (32.0-36.0) % RDW 13.2 (11.6-17.2) % Plt Count 301 (150-450) th/mm3 MPV 7.2 (7.0-11.0) fL Neut % (Auto) 67.0 (16.0-70.0) % Lymph % (Auto) 17.9 (9.0-44.0) % [place] % (Auto) 8.3 H (0.0-8.0) % Eos % (Auto) 4.3 H (0.0-4.0) % Baso % (Auto) 2.5 H (0.0-2.0) % Neut # (Auto) 4.8 (1.8-7.7) th/mm3 Lymph # (Auto) 1.3 (1.0-4.8) th/mm3 [place] # (Auto) 0.6 (0.0-0.9) th/mm3 Eos # (Auto) 0.3 (0.0-0.4) th/mm3 Baso # (Auto) 0.2 (0.0-0.2) th/mm3 WBC Differential . Differential Comment Auto diff final PT 10.7 (9.8-11.6) sec INR 1.1 Ratio APTT 28.0 (24.3-30.1) sec Sodium 142 (136-145) meq/L Potassium 3.7 (3.5-5.1) meq/L Chloride 106 (98-107) meq/L Carbon Dioxide 23.5 (21.0-32.0) meq/L Anion Gap 13 (5-15) meq/L BUN 19 H (7-18) mg/dL Creatinine 2.32 H (0.50-1.00) mg/dL Estimated GFR 20 L (>89) mL/min Random Glucose 87 (74-106) mg/dL Calcium 8.6 (8.5-10.1) mg/dL Magnesium 2.7 H (1.5-2.5) mg/dL Total Bilirubin 0.4 (0.2-1.0) mg/dL AST 20 (15-37) U/L ALT 61 H (10-53) U/L Alkaline Phosphatase 91 (45-117) U/L Total Creatine Kinase 25 L (26-192) U/L Troponin I Less than 0.02 L (0.02-0.05) ng/mL B-Natriuretic Peptide (0-100) pg/mL Total Protein 6.7 (6.4-8.2) g/dL Albumin 2.6 L (3.4-5.0) g/dL 03/21/18 Range/Units 03:00 WBC (4.0-11.0) th/mm3 RBC (4.00-5.30) mil/mm3 Hgb (11.6-15.3) gm/dL Hct (35.0-46.0) % MCV (80.0-100.0) fL MCH (27.0-34.0) pg MCHC (32.0-36.0) % RDW (11.6-17.2) % Plt Count (150-450) th/mm3 MPV (7.0-11.0) fL Neut % (Auto) (16.0-70.0) % Lymph % (Auto) (9.0-44.0) % [place] % (Auto) (0.0-8.0) % Eos % (Auto) (0.0-4.0) % Baso % (Auto) (0.0-2.0) % Neut # (Auto) (1.8-7.7) th/mm3 Lymph # (Auto) (1.0-4.8) th/mm3 [place] # (Auto) (0.0-0.9) th/mm3 Eos # (Auto) (0.0-0.4) th/mm3 Baso # (Auto) (0.0-0.2) th/mm3 WBC Differential Differential Comment PT (9.8-11.6) sec INR Ratio APTT (24.3-30.1) sec Sodium (136-145) meq/L Potassium (3.5-5.1) meq/L Chloride (98-107) meq/L Carbon Dioxide (21.0-32.0) meq/L Anion Gap (5-15) meq/L BUN (7-18) mg/dL Creatinine (0.50-1.00) mg/dL Estimated GFR (>89) mL/min Random Glucose (74-106) mg/dL Calcium (8.5-10.1) mg/dL Magnesium (1.5-2.5) mg/dL Total Bilirubin (0.2-1.0) mg/dL AST (15-37) U/L ALT (10-53) U/L Alkaline Phosphatase (45-117) U/L Total Creatine Kinase (26-192) U/L Troponin I (0.02-0.05) ng/mL B-Natriuretic Peptide 138 H (0-100) pg/mL Total Protein (6.4-8.2) g/dL Albumin (3.4-5.0) g/dL Imaging Data Radiologist's impression: Chest X-Ray 03/21/18 02:40 CONCLUSION: Left lower lobe airspace disease. ECG Data Attestation: I personally reviewed and interpreted this ECG as follows: Interpretation: The patient had a EKG done on arrival that shows a sinus rhythm rate of 72, QRS duration is 86 ms, QTC [address] segment elevation, T waves are inverted in lead III, V1. Discharge Plan Discharge Disposition Patient Disposition: 30 Still Patient Discharge Details Diagnosis: Acute dehydration, Acute renal failure Physicians Team ED Provider: Andreia Vazquez Primary Care Provider: UNKNOWN, Attending Provider: Sana Gustafson Status ED Status: Admitted Patient
[2018-03-21] MEDS ORDERED: HYDROmorphone PF Inj 0.5 MG/0.5 ML Syringe IV.PUSH ONE (04:25)
[2018-03-21] MEDS ORDERED: Temazepam 15 MG Capsule PO PRN (05:05)
[2018-03-21] MEDS ORDERED: Bisacodyl 10 MG Supp RECTAL PRN (05:05)
[2018-03-21] MEDS: Sod Chloride 0.9% Inj 1,000 ML IV.CONT SCH ×2 (06:14→17:06)
[2018-03-21] MEDS: Heparin - SQ 10,000 UNITS/ML Vial SQ SCH ×2 (06:14→19:51)
[2018-03-21 06:53] LABS: Bilirubin,Urine Negative (Negative); Clarity,Urine Clear (Clear); Color,Urine Yellow (Yellw/Straw); Glucose,Urine (UA) Negative (Negative); Leukocyte Esterase,Urine Small (Negative); Nitrite,Urine Negative (Negative); Specific Gravity,Urine 1.005 (1.002-1.035); Squamous Epithelial Cell,Urine 2 /hpf (0-5); Transitional Epi Cells,Urine <1 /hpf
[2018-03-21] MEDS ORDERED: Amoxicillin/Clavulanate 500/125 MG Tablet PO SCH (09:00)
--- NOTE | 2018-03-21 09:19 | US ---
EXAM DATE: 03/21/2018 8:57 AM EDT AGE/SEX: 77 years / Female INDICATIONS: Increased BUN/Creatinine. CLINICAL DATA: This is the patient's initial encounter. Patient reports that signs and symptoms have been present for 1 day and indicates a pain score of 3/10. MEDICAL/SURGICAL HISTORY: Gastroesophageal reflux disease. Bronchitis. Tobacco use. Lung mass. . Bladder suspension. Lung biopsy. COMPARISON: COMP, CT ABDOMEN AND PELVIS W/O CONTRAST, 11/02/2009. . MEASUREMENTS: Right Kidney:__9.8 x 5.9 x 5.4 cm Left Kidney:__11.4 x 4.7 x 6.1 cm FINDINGS: Right Kidney: Normal in size and shape with diffuse increased echogenicity characteristic of medical renal disease. There is no focal mass or hydronephrosis. There are no renal calculi. Left Kidney: Normal in size and shape with small cyst in the mid kidney measuring up to 1.6 cm. There is no solid mass, calculi or hydronephrosis. Bladder: Within normal limits given the degree of distension. Other: None. CONCLUSION: 1. No evidence of hydronephrosis. 2. Increased cortical echogenicity characteristic of medical renal disease. 3. Simple cyst in left kidney. Electronically signed by: Yobany Barney MD 03/21/2018 9:18 AM EDT
--- NOTE | 2018-03-21 11:50 | P.CONID ---
History of Present Illness Service: ID Consult date: 03/21/18 Requesting Physician: Deandre Horn Reason for Consult: empyema Primary Care Provider: UNKNOWN Family Provider: Anish Goodwin History of Present Illness: 77 yo F known to me from her recent admission She was discharged few days ago after threatmetn for LLL PNA and effusion that developped after VATS, culture negative She is sp VATS 02/28: cw bacterial infection, AFB/fungal stains negative (dw Dr Luna) , clx were ot done at that time She was Rx'd with zosyn and her CT was removed prior to going home She deveklopped L sided chest pain within 1-2 days after discharge, noted to have a high blood pressure and she also has incapacitating nausea to the point she refused to take any po DFamily brought her back to ER Guzman has new YESENIA ( BUN 19 , creatinine 2.32, US showed no hydronephrosis). Pt reports normal urine output [place] urine sediment on UA Afebrile with normal WBC CXR showed small infiltrate/effusion Review of Systems All other systems reviewed negative except as stated in HPI PMFSH - History History Provided By: Patient - Medical History Medical History: Medical History (Last Reviewed 03/21/18 @ 12:05 by Breanna Landin MD) GERD (gastroesophageal reflux disease) (Acute) Hx of smoking (Acute) Bronchitis (Acute) - Surgical History Surgical History: Surgical History (Last Reviewed 03/21/18 @ 12:05 by Breanna Landin MD) History of bladder suspension procedure (Acute) - Family History Family History: Family History (Last Reviewed 03/21/18 @ 12:05 by Breanna Landin MD) Father Family history of cancer Mother Family history of cancer Family history of hypertension Sister Family history of cancer Brother Family history of cancer - Tobacco History Second Hand Smoke Exposure: No Smoking Status: Former smoker Tobacco Type: Cigarettes - Alcohol History How Often Do You Have a Drink Containing Alcohol: 4 or more times a week - Substance Use History Substance History: No History of Abuse - Immunization History Tetanus Immunization: Unsure Hx Influenza Vaccine This Season: No Medications and Allergies Active Medications: Active Medications Acetaminophen (Tylenol) 650 mg PO Q4H PRN PRN Reason: Temp > 100.4 Al Hydroxide/Mg Hydroxide (Milk Of Magnesia Liq) 30 ml PO Q12H PRN PRN Reason: Mild Constipation Bisacodyl (Dulcolax Supp) 10 mg RECTAL DAILY PRN PRN Reason: SEVERE CONSITIPATION Clonidine HCl (Catapres) 0.1 mg PO Q6H PRN PRN Reason: SYS BP GREATER THAN 160 MMHG Heparin Sodium (Porcine) (Heparin Inj) 5,000 units SQ Q12H [facility] Last Admin: 03/21/18 06:14 Dose: 5,000 units Sodium Chloride (Ns Inj) 1,000 mls @ 100 mls/hr IV.CONT .Q10H [facility] Last Admin: 03/21/18 06:14 Dose: 100 mls/hr Clindamycin/Sodium Chloride (Cleocin 600 Mg/Ns Premix) 600 mg in 50 mls @ 100 mls/hr IV.SIG Q6H [facility] Lactulose (Lactulose Liq) 30 ml PO DAILY PRN PRN Reason: SEVERE CONSITIPATION Ondansetron HCl (Zofran Inj) 4 mg IV.PUSH Q6H PRN PRN Reason: NAUSEA OR VOMITING Senna/Docusate Sodium (Brunilda-Colace) 1 tab PO BID [facility] Sennosides (Senokot) 17.2 mg PO Q12H PRN PRN Reason: Moderate Constipation Temazepam (Restoril) 15 mg PO HS PRN PRN Reason: INSOMNIA Allergies Allergy/AdvReac Type Severity Reaction Status Date / Time No Known Allergies Allergy Verified 03/13/18 00:19 Exam Vital signs: Vital Signs 03/21/18 00:09 03/21/18 02:15 03/21/18 02:40 Temperature 97.6 F Pulse Rate 60 70 Respiratory Rate 16 18 Blood Pressure 176/88 H 172/87 H Pulse Oximetry 95 99 98 03/21/18 04:33 03/21/18 05:05 03/21/18 07:47 Temperature 98.8 F Pulse Rate 65 70 Respiratory Rate 16 18 18 Blood Pressure 170/77 H 183/86 H Pulse Oximetry 99 Intake & Output 03/20/18 03/21/18 03/21/18 18:59 06:59 18:59 Weight 72.575 kg - Constitutional no acute distress, average body habitus - Routine HEENT Exam Head: Present: normocephalic, atraumatic Eye: Present: EOMI, PERRL ENT: Present: mucous membranes moist, oropharynx clear - Routine Neck Exam Present: supple, full ROM - Routine Respiratory Exam Present: decreased breath sounds, rales (L base), rhonchi (L base) Comments: sites from CTs are healing niced, no drainage - Routine Cardiovascular Exam Present: RRR, S1, S2 Comments: no murumrs, rubs or gallops - Routine Extremities Exam Present: full ROM, pulses intact, normal capillary refill Comments: no cyanosis, clubboing or edema - Routine Skin Exam Present: intact, dry, warm - Routine Neurological Exam Present: alert, oriented X3, moving all extremities, vision grossly intact, hearing grossly intact, normal speech - Routine Psychiatric Exam Present: normal affect, normal thought process, cooperative Results - Labs CBC & Chem 7: 03/21/18 03:00 03/21/18 03:00 Labs: Laboratory Results - last 24 hr 03/21/18 03/21/18 03/21/18 03:00 03:00 03:00 WBC 7.1 RBC 3.45 L Hgb 11.3 L Hct 32.6 L MCV 94.4 MCH 32.8 MCHC 34.7 RDW 13.2 Plt Count 301 MPV 7.2 Neut % (Auto) 67.0 Lymph % (Auto) 17.9 [place] % (Auto) 8.3 H Eos % (Auto) 4.3 H Baso % (Auto) 2.5 H Neut # (Auto) 4.8 Lymph # (Auto) 1.3 [place] # (Auto) 0.6 Eos # (Auto) 0.3 Baso # (Auto) 0.2 WBC Differential . Differential Comment Auto diff final PT 10.7 INR 1.1 APTT 28.0 Sodium 142 Potassium 3.7 Chloride 106 Carbon Dioxide 23.5 Anion Gap 13 BUN 19 H Creatinine 2.32 H Estimated GFR 20 L Random Glucose 87 Calcium 8.6 Magnesium 2.7 H Total Bilirubin 0.4 AST 20 ALT 61 H Alkaline Phosphatase 91 Total Creatine Kinase 25 L Troponin I Less than 0.02 L B-Natriuretic Peptide Total Protein 6.7 Albumin 2.6 L Urine Color Urine Clarity Urine pH Ur Specific [place] Urine Protein Urine Glucose (UA) Urine Ketones Urine Occult Blood Urine Nitrate Urine Bilirubin Urine Urobilinogen Ur Leukocyte Esterase Urine RBC Urine WBC Ur Squamous Epith Cells Ur Transition Epith Cell Micro UA Comment Urine Culture Comments 03/21/18 03/21/18 03:00 06:25 WBC RBC Hgb Hct MCV MCH MCHC RDW Plt Count MPV Neut % (Auto) Lymph % (Auto) [place] % (Auto) Eos % (Auto) Baso % (Auto) Neut # (Auto) Lymph # (Auto) [place] # (Auto) Eos # (Auto) Baso # (Auto) WBC Differential Differential Comment PT INR APTT Sodium Potassium Chloride Carbon Dioxide Anion Gap BUN Creatinine Estimated GFR Random Glucose Calcium Magnesium Total Bilirubin AST ALT Alkaline Phosphatase Total Creatine Kinase Troponin I B-Natriuretic Peptide 138 H Total Protein Albumin Urine Color Yellow Urine Clarity Clear Urine pH 6.0 Ur Specific [place] 1.005 Urine Protein Negative Urine Glucose (UA) Negative Urine Ketones Trace H Urine Occult Blood Negative Urine Nitrate Negative Urine Bilirubin Negative Urine Urobilinogen Less than 2 Ur Leukocyte Esterase Small H Urine RBC 1 Urine WBC 8 H Ur Squamous Epith Cells 2 Ur Transition Epith Cell <1 Micro UA Comment Culture not ind Urine Culture Comments Culture not ind - Imaging Impressions Abdomen/Bladder Ultrasound 03/21/18 00:00 CONCLUSION: 1. No evidence of hydronephrosis. 2. Increased cortical echogenicity characteristic of medical renal disease. 3. Simple cyst in left kidney. Chest X-Ray 03/21/18 02:40 CONCLUSION: Left lower lobe airspace disease. Assessment and Plan - Plan LLL persistent PNA path c LLL effusion, culture negative post VATS YESENIA, suspect interstitial nephritis - fu CXR to re-eval for fluid re-accumulation - urine eosinophils fu P clx until final
[2018-03-21] MEDS ORDERED: Clindamycin 600 mg/NS Premix 600 MG/50 ML PIGGYBACK IV.SIG SCH (14:00)
[2018-03-21] MEDS: Senna/Docusate Sodium 8.6/50 MG Tablet PO SCH ×2 (15:48→20:57)
--- NOTE | 2018-03-21 17:00 | P.HPIM ---
History of Present Illness Primary Care Physician: UNKNOWN History of Present Illness: Mrs. Ruiz is a 77-year-old female. She is admitted secondary to back pain with acute kidney injury and dehydration. She was previously admitted here had a complicated course related to pneumonia. This included chest tube placement which has subsequently been removed. At last admit she was discharged on Augmentin. She was at home with Augmentin for 2 days and reports a metallic taste in her mouth, decreased appetite, poor p.o. intake, and a developing back pain greater at the left. Upon arrival to the ER she was found to have acute kidney injury which could either be related to dehydration or inflammation/ reaction. By history there may be a reactive component. Currently her Augmentin has been changed to clindamycin. The patient reports that she is having decreased flank pain after this change. Her appetite is not yet improved. No other complaints today. Inpatient Certification: I certify that the inpatient services were ordered in accordance with Medicare regulations governing the order. This includes certification that hospital inpatient services are reasonable and necessary and in the case of services not specified as inpatient-only under 42 CFR 419.22(n), that they are appropriately provided as inpatient services in accordance to with the 2-midnight benchmark under 43 CFR 412.3(e) Estimated Total Length of Stay (Days): 2 Plans for Post Hospital Care: Not yet determined Review of Systems Constitutional: Denies fatigue, Denies fever(s), Denies night sweats, Denies weakness Eyes: Denies blind spots, Denies blurry vision, Denies change in vision, Denies double vision Ears, Nose, Mouth, and Throat: Denies abnormal hearing, Denies facial pain, Denies lip swelling Cardiovascular: Denies chest pain, Denies chest pain at rest, Denies chest pain with activity Respiratory: Denies cough, Denies shortness of breath, Denies wheezing Gastrointestinal: Denies abdominal pain, Denies black, tarry stools, Denies bloating, Denies bright, red blood in stools Musculoskeletal: Reports back pain, Reports body aches, Denies abnormal walking , Denies joint pain Neurologic: Denies abnormal hearing, Denies abnormal movements, Denies abnormal speech PMFSH - History History Provided By: Patient - Medical History Medical History: Medical History (Last Reviewed 03/21/18 @ 12:05 by Breanna Landin MD) GERD (gastroesophageal reflux disease) (Acute) Hx of smoking (Acute) Bronchitis (Acute) - Surgical History Surgical History: Surgical History (Last Reviewed 03/21/18 @ 12:05 by Breanna Landin MD) History of bladder suspension procedure (Acute) - Family History Family History: Family History (Last Reviewed 03/21/18 @ 12:05 by Breanna Landin MD) Father Family history of cancer Mother Family history of cancer Family history of hypertension Sister Family history of cancer Brother Family history of cancer - Tobacco History Second Hand Smoke Exposure: No Smoking Status: Former smoker Tobacco Type: Cigarettes - Alcohol History How Often Do You Have a Drink Containing Alcohol: 4 or more times a week - Substance Use History Substance History: No History of Abuse - Immunization History Tetanus Immunization: Unsure Hx Influenza Vaccine This Season: No Medications and Allergies Active Medications: Active Medications Acetaminophen (Tylenol) 650 mg PO Q4H PRN PRN Reason: Temp > 100.4 Al Hydroxide/Mg Hydroxide (Milk Of Magnesia Liq) 30 ml PO Q12H PRN PRN Reason: Mild Constipation Albuterol (Duoneb Neb (Prn)) 1 ampul NEB Q4HR NEB PRN PRN Reason: DYSPNEA Bisacodyl (Dulcolax Supp) 10 mg RECTAL DAILY PRN PRN Reason: SEVERE CONSITIPATION Clonidine HCl (Catapres) 0.1 mg PO Q6H PRN PRN Reason: SYS BP GREATER THAN 160 MMHG Heparin Sodium (Porcine) (Heparin Inj) 5,000 units SQ Q12H [facility] Last Admin: 03/21/18 06:14 Dose: 5,000 units Sodium Chloride (Ns Inj) 1,000 mls @ 100 mls/hr IV.CONT .Q10H [facility] Last Admin: 03/21/18 06:14 Dose: 100 mls/hr Clindamycin/Sodium Chloride (Cleocin 600 Mg/Ns Premix) 600 mg in 50 mls @ 100 mls/hr IV.SIG Q6H [facility] Lactulose (Lactulose Liq) 30 ml PO DAILY PRN PRN Reason: SEVERE CONSITIPATION Ondansetron HCl (Zofran Inj) 4 mg IV.PUSH Q6H PRN PRN Reason: NAUSEA OR VOMITING Senna/Docusate Sodium (Brunilda-Colace) 1 tab PO BID [facility] Last Admin: 03/21/18 15:48 Dose: Not Given Sennosides (Senokot) 17.2 mg PO Q12H PRN PRN Reason: Moderate Constipation Temazepam (Restoril) 15 mg PO HS PRN PRN Reason: INSOMNIA Allergies Allergy/AdvReac Type Severity Reaction Status Date / Time No Known Allergies Allergy Verified 03/13/18 00:19 Exam Vital signs: Vital Signs 03/21/18 00:09 03/21/18 02:15 03/21/18 02:40 Temperature 97.6 F Pulse Rate 60 70 Respiratory Rate 16 18 Blood Pressure 176/88 H 172/87 H Pulse Oximetry 95 99 98 03/21/18 04:33 03/21/18 05:05 03/21/18 07:47 Temperature 98.8 F Pulse Rate 65 70 Respiratory Rate 16 18 18 Blood Pressure 170/77 H 183/86 H Pulse Oximetry 99 03/21/18 13:54 Temperature 96.4 F L Pulse Rate 68 Respiratory Rate 16 Blood Pressure 165/77 H Pulse Oximetry 95 Intake & Output 03/20/18 03/21/18 03/21/18 18:59 06:59 18:59 Weight 72.575 kg Narrative: GENERAL: NAD, A&Ox3 HEAD: Normocephalic. NECK: Supple, trachea midline. No lymphadenopathy. EYES: No scleral icterus. No injection or drainage. CARDIOVASCULAR: Regular rate and rhythm without murmurs, gallops, or rubs. RESPIRATORY: Breath sounds equal bilaterally. No accessory muscle use. GASTROINTESTINAL: Abdomen soft, non-tender, nondistended. MUSCULOSKELETAL: No cyanosis, or edema. SKIN: Warm and dry. NEURO: No focal neurological deficits. Results - Labs CBC & Chem 7: 03/21/18 03:00 03/21/18 03:00 Labs: Short CBC 03/21/18 Range/Units 03:00 WBC 7.1 (4.0-11.0) th/mm3 Hgb 11.3 L (11.6-15.3) gm/dL Hct 32.6 L (35.0-46.0) % Plt Count 301 (150-450) th/mm3 BMP 03/21/18 03:00 Sodium 142 Potassium 3.7 Chloride 106 Carbon Dioxide 23.5 BUN 19 H Creatinine 2.32 H Calcium 8.6 Cardiac Enzymes 03/21/18 Range/Units 03:00 Total Creatine Kinase 25 L (26-192) U/L Troponin I Less than 0.02 L (0.02-0.05) ng/mL Liver Function 03/21/18 Range/Units 03:00 Total Bilirubin 0.4 (0.2-1.0) mg/dL AST 20 (15-37) U/L ALT 61 H (10-53) U/L Alkaline Phosphatase 91 (45-117) U/L Albumin 2.6 L (3.4-5.0) g/dL Urine 03/21/18 Range/Units 06:25 Urine Color Yellow (Yellw/Straw) Urine Clarity Clear (Clear) Urine pH 6.0 (5.0-8.5) Ur Specific Gary 1.005 (1.002-1.035) Urine Protein Negative (Neg-Trace) mg/dL Urine Glucose (UA) Negative (Negative) mg/dL - Imaging Impressions Abdomen/Bladder Ultrasound 03/21/18 00:00 CONCLUSION: 1. No evidence of hydronephrosis. 2. Increased cortical echogenicity characteristic of medical renal disease. 3. Simple cyst in left kidney. Chest X-Ray 03/21/18 02:40 CONCLUSION: Left lower lobe airspace disease. Caprini VTE Risk Assessment Caprini VTE Risk Assessment: Moderate/High Risk (score >= 2) Caprini Risk Assessment Model: Point Value = 1 Point Value = 2 Point Value = 3 Point Value = 5 Age 41-60 Minor surgery BMI > 25 kg/m2 Swollen legs Varicose veins or History of unexplained or recurrent spontaneous Oral contraceptives or hormone replacement Sepsis (< 1 month) Serious lung disease, including pneumonia (< 1 month) Abnormal pulmonary function Acute myocardial infarction Congestive heart failure (< 1 month) History of inflammatory bowel disease Medical patient at bed rest Age 61-74 Arthroscopic surgery Major open surgery (> 45 min) Laparoscopic surgery (> 45 min) Malignancy Confined to bed (> 72 hours) Immobilizing plaster cast Central venous access Age >= 75 History of VTE Family history of VTE Factor V Leiden Prothrombin [id number] Lupus anticoagulant Anticardiolipin antibodies Elevated serum homocysteine Heparin-induced thrombocytopenia Other congenital or acquired thrombophilia Stroke (< 1 month) Elective arthroplasty Hip, pelvis, or leg fracture Acute spinal cord injury (< 1 month) Prophylaxis Regimen: Total Risk Factor Score Risk Level Prophylaxis Regimen 0-1 Low Early ambulation 2 Moderate Order ONE of the following: *Sequential Compression Device (SCD) *Heparin 5000 units SQ BID 3-4 Higher Order ONE of the following medications: *Heparin 5000 units SQ TID *Enoxaparin/Lovenox 40 mg SQ daily (WT < 150 kg, CrCl > 30 mL/min) *Enoxaparin/Lovenox 30 mg SQ daily (WT < 150 kg, CrCl > 10-29 mL/min) *Enoxaparin/Lovenox 30 mg SQ BID (WT < 150 kg, CrCl > 30 mL/min) AND/OR *Sequential Compression Device (SCD) 5 or more Highest Order ONE of the following medications: *Heparin 5000 units SQ TID (Preferred with Epidurals) *Enoxaparin/Lovenox 40 mg SQ daily (WT < 150 kg, CrCl > 30 mL/min) *Enoxaparin/Lovenox 30 mg SQ daily (WT < 150 kg, CrCl > 10-29 mL/min) *Enoxaparin/Lovenox 30 mg SQ BID (WT < 150 kg, CrCl > 30 mL/min) AND *Sequential Compression Device (SCD) Assessment and Plan - Plan 77-year-old female admitted secondary to acute kidney injury and dehydration Acute kidney injury Dehydration Previous pneumonia Recent chest tube Pneumonia Left lung nodule Empyema Status post VATS and decortication Etiology related to dehydration versus inflammation/reactivity versus both IV hydration Follow renal function ID has changed augmentin to clindamycin. ID following Pulmonology following Patient is otherwise recovering well from previous procedures DVT Prophylaxis Heparin
[2018-03-21] MEDS: Acetaminophen 325 MG Tablet PO PRN (17:03)
--- NOTE | 2018-03-21 17:16 | P.CONNP ---
<Guillermina Mejia - Last Filed: 03/21/18 17:01> History of Present Illness Service: Nephrology Consult date: 03/21/18 Reason for Consult: Acute Renal Failure Primary Care Provider: UNKNOWN Family Provider: Anish Goodwin History of Present Illness: This is a very pleasant 77 y/o female who was discharged Monday after admission and treatment for pneumonia. She has been undergoing investigation for suspected lung cancer, had a biopsy. Unfortunately that was complicated by pneumothorax, she had a pigtail catheter and VATS procedure. The biospy was negative for malignancy. At discharge she was sent home on Augmentin. The pt reports nausea/vomiting as soon as she took the medication. Also reports altered taste therefore did not eat much since discharge. At that time her creatinine wa 0.85. Today it is 2.32, K 3.7,CO2 23. Her UA shows ketones. We were consulted for management. She is a full code, not on oxygen, not in distress, and family is at bedside. IVF is currently infusing, Review of Systems Constitutional: Reports anorexia, Reports fatigue, Denies increased appetite Cardiovascular: Denies chest pain Respiratory: Denies shortness of breath Gastrointestinal: Reports nausea, Reports vomiting, Denies abdominal pain, Denies heartburn, Denies vomiting blood PMFSH - History History Provided By: Patient - Medical History Medical History: Medical History (Last Reviewed 03/21/18 @ 12:05 by Breanna Landin MD) GERD (gastroesophageal reflux disease) (Acute) Hx of smoking (Acute) Bronchitis (Acute) - Surgical History Surgical History: Surgical History (Last Reviewed 03/21/18 @ 12:05 by Breanna Landin MD) History of bladder suspension procedure (Acute) - Family History Family History: Family History (Last Reviewed 03/21/18 @ 12:05 by Breanna Landin MD) Father Family history of cancer Mother Family history of cancer Family history of hypertension Sister Family history of cancer Brother Family history of cancer - Tobacco History Second Hand Smoke Exposure: No Smoking Status: Former smoker Tobacco Type: Cigarettes - Alcohol History How Often Do You Have a Drink Containing Alcohol: 4 or more times a week - Substance Use History Substance History: No History of Abuse - Immunization History Tetanus Immunization: Unsure Hx Influenza Vaccine This Season: No Medications and Allergies Allergies Allergy/AdvReac Type Severity Reaction Status Date / Time No Known Allergies Allergy Verified 03/13/18 00:19 Active Medications: Active Medications Acetaminophen (Tylenol) 650 mg PO Q4H PRN PRN Reason: Temp > 100.4 Al Hydroxide/Mg Hydroxide (Milk Of Magnesia Liq) 30 ml PO Q12H PRN PRN Reason: Mild Constipation Albuterol (Duoneb Neb (Prn)) 1 ampul NEB Q4HR NEB PRN PRN Reason: DYSPNEA Bisacodyl (Dulcolax Supp) 10 mg RECTAL DAILY PRN PRN Reason: SEVERE CONSITIPATION Clonidine HCl (Catapres) 0.1 mg PO Q6H PRN PRN Reason: SYS BP GREATER THAN 160 MMHG Heparin Sodium (Porcine) (Heparin Inj) 5,000 units SQ Q12H [facility] Last Admin: 03/21/18 06:14 Dose: 5,000 units Sodium Chloride (Ns Inj) 1,000 mls @ 100 mls/hr IV.CONT .Q10H [facility] Last Admin: 03/21/18 06:14 Dose: 100 mls/hr Clindamycin/Sodium Chloride (Cleocin 600 Mg/Ns Premix) 600 mg in 50 mls @ 100 mls/hr IV.SIG Q6H [facility] Lactulose (Lactulose Liq) 30 ml PO DAILY PRN PRN Reason: SEVERE CONSITIPATION Ondansetron HCl (Zofran Inj) 4 mg IV.PUSH Q6H PRN PRN Reason: NAUSEA OR VOMITING Senna/Docusate Sodium (Brunilda-Colace) 1 tab PO BID [facility] Last Admin: 03/21/18 15:48 Dose: Not Given Sennosides (Senokot) 17.2 mg PO Q12H PRN PRN Reason: Moderate Constipation Temazepam (Restoril) 15 mg PO HS PRN PRN Reason: INSOMNIA Exam Vital signs: Vital Signs 03/21/18 00:09 03/21/18 02:15 03/21/18 02:40 Temperature 97.6 F Pulse Rate 60 70 Respiratory Rate 16 18 Blood Pressure 176/88 H 172/87 H Pulse Oximetry 95 99 98 03/21/18 04:33 03/21/18 05:05 03/21/18 07:47 Temperature 98.8 F Pulse Rate 65 70 Respiratory Rate 16 18 18 Blood Pressure 170/77 H 183/86 H Pulse Oximetry 99 03/21/18 13:54 Temperature 96.4 F L Pulse Rate 68 Respiratory Rate 16 Blood Pressure 165/77 H Pulse Oximetry 95 Intake & Output 03/20/18 03/21/18 03/21/18 18:59 06:59 18:59 Weight 72.575 kg - Constitutional no acute distress, average body habitus - Routine HEENT Exam Head: Absent: normocephalic - Routine Neck Exam Present: supple, full ROM - Routine Respiratory Exam Present: CTA bilaterally. Absent: accessory muscle use Comments: left flank/rib s/p pigtail catheter removal - Routine Cardiovascular Exam Present: RRR, S1, S2 - Routine Abdominal Exam Present: soft, normoactive bowel sounds. Absent: tenderness, distended, guarding, rigid Results - Lab Results 03/21/18 03:00 03/21/18 03:00 Most recent lab results Calcium 8.6 mg/dL (8.5-10.1) 03/21/18 03:00 Magnesium 2.7 mg/dL (1.5-2.5) H 03/21/18 03:00 - Image Kidney/bladder ultrasound: report reviewed Assessment and Plan - Assessment (1) YESENIA (acute kidney injury) Code(s): N17.9 - Acute kidney failure, unspecified Status: Acute Plan: Her creatinine was 0.85 at discharge on 03/17 YESENIA most likely prerenal azotemia due to nausea/vomiting and decreased oral intake. Continue IVF, change to D51/2 @ 75 cc/hr UA with + ketones She is non oliguric Renal US reviewed Obtain urine electrolytes, monitor urine output Expect improvement, repeat labs in AM (2) Pneumonia Code(s): J18.9 - Pneumonia, unspecified organism Status: Acute Plan: Recent complicated admission s/p VATS with pigtail catheter, s/p pneumothorax after lung biopsy On Augmentin at discharge, on IV Cipro here Chest Xray reviewed Monitor clinically, she reports feeling much better <Augusto Molina - Last Filed: 03/21/18 17:34> History of Present Illness Primary Care Provider: UNKNOWN Family Provider: Anish Goodwin [facility] - Medical History Medical History: Medical History (Last Reviewed 03/21/18 @ 12:05 by Breanna Landin MD) GERD (gastroesophageal reflux disease) (Acute) Hx of smoking (Acute) Bronchitis (Acute) - Surgical History Surgical History: Surgical History (Last Reviewed 03/21/18 @ 12:05 by Breanna Landin MD) History of bladder suspension procedure (Acute) - Family History Family History: Family History (Last Reviewed 03/21/18 @ 12:05 by Breanna Landin MD) Father Family history of cancer Mother Family history of cancer Family history of hypertension Sister Family history of cancer Brother Family history of cancer Medications and Allergies Active Medications: Active Medications Acetaminophen (Tylenol) 650 mg PO Q4H PRN PRN Reason: Temp > 100.4 Last Admin: 03/21/18 17:03 Dose: 650 mg Al Hydroxide/Mg Hydroxide (Milk Of Magnesia Liq) 30 ml PO Q12H PRN PRN Reason: Mild Constipation Albuterol (Duoneb Neb (Prn)) 1 ampul NEB Q4HR NEB PRN PRN Reason: DYSPNEA Bisacodyl (Dulcolax Supp) 10 mg RECTAL DAILY PRN PRN Reason: SEVERE CONSITIPATION Clonidine HCl (Catapres) 0.1 mg PO Q6H PRN PRN Reason: SYS BP GREATER THAN 160 MM[facility] Last Admin: 03/21/18 17:05 Dose: 0.1 mg Heparin Sodium (Porcine) (Heparin Inj) 5,000 units SQ Q12H [facility] Last Admin: 03/21/18 06:14 Dose: 5,000 units Clindamycin/Sodium Chloride (Cleocin 600 Mg/Ns Premix) 600 mg in 50 mls @ 100 mls/hr IV.SIG Q6H [facility] Last Admin: 03/21/18 17:05 Dose: 100 mls/hr Dextrose/Sodium Chloride (D5w/1/2 Ns Inj) 1,000 mls @ 75 mls/hr IV.CONT .[id number] [facility] Lactulose (Lactulose Liq) 30 ml PO DAILY PRN PRN Reason: SEVERE CONSITIPATION Ondansetron HCl (Zofran Inj) 4 mg IV.PUSH Q6H PRN PRN Reason: NAUSEA OR VOMITING Last Admin: 03/21/18 17:04 Dose: 4 mg Prochlorperazine Edisylate (Compazine Inj) 5 mg IV.PUSH Q6H PRN PRN Reason: NAUSEA Senna/Docusate Sodium (Brunilda-Colace) 1 tab PO BID [facility] Last Admin: 03/21/18 15:48 Dose: Not Given Sennosides (Senokot) 17.2 mg PO Q12H PRN PRN Reason: Moderate Constipation Temazepam (Restoril) 15 mg PO HS PRN PRN Reason: INSOMNIA Exam Vital signs: Vital Signs 03/21/18 00:09 03/21/18 02:15 03/21/18 02:40 Temperature 97.6 F Pulse Rate 60 70 Respiratory Rate 16 18 Blood Pressure 176/88 H 172/87 H Pulse Oximetry 95 99 98 03/21/18 04:33 03/21/18 05:05 03/21/18 07:47 Temperature 98.8 F Pulse Rate 65 70 Respiratory Rate 16 18 18 Blood Pressure 170/77 H 183/86 H Pulse Oximetry 99 03/21/18 13:54 Temperature 96.4 F L Pulse Rate 68 Respiratory Rate 16 Blood Pressure 165/77 H Pulse Oximetry 95 Intake & Output 03/20/18 03/21/18 03/21/18 18:59 06:59 18:59 Intake Total 1000 / 1000 Balance 1000 / 1000 Weight 72.575 kg Intake: IV 1000 / 1000 NS Inj 1,000 ML @ 100 mls/hr IV 1000 / 1000 .CONT .Q10H [facility] Rx#:[id number] Results - Lab Results 03/21/18 03:00 03/21/18 03:00 Most recent lab results Calcium 8.6 mg/dL (8.5-10.1) 03/21/18 03:00 Magnesium 2.7 mg/dL (1.5-2.5) H 03/21/18 03:00 Assessment and Plan - Assessment (1) YESENIA (acute kidney injury) Code(s): N17.9 - Acute kidney failure, unspecified Status: Acute (2) Pneumonia Code(s): J18.9 - Pneumonia, unspecified organism Status: Acute - Attending Attestation patient was seen and examined. Agree with above assessment and plan. YESENIA could be due to pre-renal azotemia. Continue IVF, avoid nephrotoxic agents. Also will have to consider allergic interstitial nephritis. <Guillermian Mejia - Last Filed: 03/21/18 17:01> (2) Pneumonia Qualifiers: Pneumonia type: due to unspecified organism Laterality: left Lung location: lower lobe of lung Qualified Code(s): J18.1 - Lobar pneumonia, unspecified organism <Augusto Molina - Last Filed: 03/21/18 17:34> (2) Pneumonia Qualifiers: Pneumonia type: due to unspecified organism Laterality: left Lung location: lower lobe of lung Qualified Code(s): J18.1 - Lobar pneumonia, unspecified organism
--- NOTE | 2018-03-21 17:50 | MB ---
cc: Guanako Neves MD DATE: 03/21/2018 REASON FOR CONSULTATION: Chest pains and pneumonia. HISTORY OF PRESENT ILLNESS: This is a 77-year-old lady who was recently admitted to [facility] with a history of left lower lobe rounded mass-like infiltrate for which needle aspiration biopsy was done on 02/28/2018. The patient developed a pneumothorax as well as an effusion post-biopsy, and she was on antibiotic therapy including IV Rocephin, which was subsequently switched over to oral Augmentin. The patient has been having ongoing pain on the left lower chest and subsequently developed a moderate sized loculated left effusion and was seen by Dr. Dominguez, a thoracic surgeon. She then had to undergo a VATS thoracotomy and decortication procedure to drain the fluid and postoperatively had a chest tube in place for 3 days and was also continued on antibiotic therapy. Following removal of the chest tube, the patient was discharged home this past week and following discharge home, the patient has remained weak and still having pains along the left lower chest and elevated blood pressure. She was noted to have a markedly raised blood pressure yesterday and was feeling quite dizzy and weak and, thus, was brought to the emergency room and a chest x-ray that was done showed a left lower lobe infiltrate again. The patient has a cough, but does not bring up any sputum. She is not running any fevers. She has no hemoptysis. She has had a poor appetite and is taking very little orally. Denies any nausea, vomiting or aspiration. PAST MEDICAL HISTORY: All documented on previous charts from last month and is significant for pneumonia, obstructive lung disease and hypertension. HABITS: The patient smoked 1/2 to 1 pack per day for over 20 years. No significant alcohol. FAMILY HISTORY: Noncontributory. ALLERGIES: NO DRUG ALLERGIES ARE LISTED. REVIEW OF SYSTEMS: The patient has been weak, lost weight, up to 10 pounds in the past 2 weeks. She has pain along the left lower chest and back. She has nausea, epigastric distress. No leg or calf muscle pain. She has no urinary symptoms. No headaches or blackout spells. She has some anxiety. PHYSICAL EXAMINATION: GENERAL: This is an averagely built, elderly white female looks pale, in no acute distress. VITAL SIGNS: Blood pressure is 170/70, pulse is 66, respirations are 16, temperature 97.8. HEENT: Head normocephalic. Pupils reactive. Sclerae were clear. Tongue was dry. Throat is injected. Nasal mucosa is clear. NECK: Supple, no bruits. No thyroid enlargement or lymphadenopathy. CHEST: Equal movements with percussion, note resonant throughout. Occasional crackles in the left lower chest with wheezes scattered. HEART: The heart sounds are irregular S1 and S2, with no murmur. ABDOMEN: Soft, protuberant, with mild epigastric tenderness. Bowel sounds are active. EXTREMITIES, NEUROLOGIC: Revealed no edema, no calf tenderness. Reflexes 1+, with no gross motor deficits. Cranial nerves are grossly intact. The patient is alert and oriented, cooperative and answers all questions. SKIN: No lesions noted. IMPRESSION: 1. Left basilar pneumonia. 2. Status post decortication of left loculated parapneumonic effusion. 3. Dehydration with acute kidney injury. 4. Possible interstitial nephritis. 5. Left lung nodule, etiology undetermined. 6. Chronic obstructive pulmonary disease. 7. Uncontrolled hypertension. PLAN: The patient has been started on antihypertensives. She will be placed on O2 at 2 liters nasal cannula. Nebulized DuoNeb solution q.i.d. p.r.n. Antibiotics were switched to clindamycin 600 mg IV q. 8 hours by infectious disease. We will also get a followup chest x-ray in the a.m., as well as basic metabolic profile. A sputum will be sent for Gram stain and culture, and incentive spirometry started every 2 hours. I will follow the case with you, Dr. Horn. Thank you for this consultation. MD ROMY Herbert/CHAYITO , 05:03 PM , 05:16 PM RACHELE
[2018-03-21] MEDS: Dextrose 5%/NaCl 0.45% Inj 1,000 ML IV.CONT SCH (19:51)
[2018-03-21 21:05] LABS: Creatinine,Urine Random 27 mg/dL (27-300)
--- NOTE | 2018-03-21 22:13 | ECG ---
Date Performed: 03/21/2018 Time Performed: 03:08:54 PTAGE: 77 years EKG: Sinus rhythm WITH FIRST DEGREE AV BLOCK WITH OCCASIONAL VENTRICULAR PREMATURE COMPLEXES MODERATE VOLTAGE CRITERIA FOR LVH, CONSIDER NORMAL VARIANT ABNORMAL ECG NO PREVIOUS TRACING DOCTOR: Teo Cazares Interpretating Date/Time 03/21/2018 22:10:48
[2018-03-22] MEDS: Clindamycin 600 mg/NS Premix 600 MG/50 ML PIGGYBACK IV.SIG SCH ×2 (00:20→08:10)
[2018-03-22] MEDS: Acetaminophen 325 MG Tablet PO PRN (00:42)
[2018-03-22 04:47] LABS: Baso # (Auto) 0.1 th/mm3 (0.0-0.2); Baso % (Auto) 1.1 % (0.0-2.0); Eos # (Auto) 0.4 th/mm3 (0.0-0.4); Eos % (Auto) 6.4 % (0.0-4.0); Hemoglobin 11.7 gm/dL (11.6-15.3); Lymph # (Auto) 1.5 th/mm3 (1.0-4.8); Lymph % (Auto) 23.3 % (9.0-44.0); Mean Corpuscular HGB Conc 33.3 % (32.0-36.0); Mean Corpuscular Volume 95.9 fL (80.0-100.0); Mean Platelet Volume 7.4 fL (7.0-11.0); Mono # (Auto) 0.5 th/mm3 (0.0-0.9); Mono % (Auto) 8.2 % (0.0-8.0); Neut # (Auto) 3.8 th/mm3 (1.8-7.7); Platelet Count 286 th/mm3 (150-450); Red Blood Count 3.65 mil/mm3 (4.00-5.30); Red Cell Distribution Width 12.9 % (11.6-17.2); White Blood Count 6.3 th/mm3 (4.0-11.0)
[2018-03-22 05:01] LABS: Albumin 2.5 g/dL (3.4-5.0); Anion Gap 10 meq/L (5-15); Aspartate Aminotransferase 21 U/L (15-37); Blood Urea Nitrogen 15 mg/dL (7-18); Calcium 8.6 mg/dL (8.5-10.1); Chloride 108 meq/L (98-107); Glomerular Filtration Rate 27 mL/min (>89); Glucose,Random 77 mg/dL (74-106); Potassium 3.4 meq/L (3.5-5.1); Sodium 142 meq/L (136-145)
[2018-03-22 05:02] LABS: Alanine Aminotransferase 52 U/L (10-53)
[2018-03-22 05:04] LABS: Alkaline Phosphatase 83 U/L (45-117); Total Protein 6.4 g/dL (6.4-8.2)
[2018-03-22] MEDS: Dextrose 5%/NaCl 0.45% Inj 1,000 ML IV.CONT SCH (06:26)
[2018-03-22] MEDS: Heparin - SQ 10,000 UNITS/ML Vial SQ SCH (06:27)
--- NOTE | 2018-03-22 07:38 | XR ---
EXAM DATE: 03/22/2018 7:21 AM EDT AGE/SEX: 77 years / Female INDICATIONS: Short of breath, pain left lateral chest, evaluate pneumonia CLINICAL DATA: This is the patient's subsequent encounter. Patient reports that signs and symptoms h ave been present for 4 - 6 days and indicates a pain score of 4/10. MEDICAL/SURGICAL HISTORY: Carcinoma, lung. None. COMPARISON: C, CHEST 1V SINGLE AP, 03/21/2018. . FINDINGS: Slight left lung base consolidation is present possibly slightly worse since the prior exam . The rest of the examination has not changed. CONCLUSION: Possible slight worsening left lung base consolidation. Electronically signed by: Lesli Basilio MD 03/22/2018 7:37 AM EDT
[2018-03-22] MEDS: Senna/Docusate Sodium 8.6/50 MG Tablet PO SCH ×2 (09:41→20:06)
--- NOTE | 2018-03-22 12:30 | P.PNID ---
Subjective Remarks: cont to have intermittent pain in L chest improved creatinine tolerates clinda OK afebrile Antibiotics: clinda iv Allergies/Adverse Reactions: Allergies No Known Allergies Allergy (Verified 03/13/18 00:19) Objective Vital Signs 03/21/18 13:54 03/21/18 15:00 03/21/18 16:00 Temperature 96.4 F L 97.4 F L Pulse Rate 68 67 64 Respiratory Rate 16 24 Blood Pressure 165/77 H 170/90 H Pulse Oximetry 95 96 03/21/18 20:00 03/21/18 21:54 03/21/18 23:59 Temperature 98 F Pulse Rate 63 67 59 L Respiratory Rate 16 Blood Pressure 145/79 H Pulse Oximetry 03/22/18 00:00 03/22/18 01:21 03/22/18 01:39 Temperature 98.1 F 98.7 F Pulse Rate 63 61 Respiratory Rate 16 16 18 Blood Pressure 148/86 H 176/83 H Pulse Oximetry 94 L 03/22/18 04:25 03/22/18 09:39 Temperature 98.4 F Pulse Rate 63 73 Respiratory Rate 17 16 Blood Pressure 161/74 H 129/63 Pulse Oximetry 96 Intake & Output 03/21/18 03/22/18 03/22/18 18:59 06:59 18:59 Intake Total 1050 / 1050 3430 / 3430 Output Total 800 / 800 Balance 1050 / 1050 2630 / 2630 Intake: IV 1050 / 1050 2950 / 2950 D5W/1/2 NS Inj 1,000 ML @ 75 1000 / 1000 mls/hr IV.CONT .[id number] TED Rx# :[id number] NS Inj 1,000 ML @ 100 mls/hr IV 1000 / 1000 900 / 900 .CONT .Q10H TED Rx#:[id number] Cleocin 600 mg/NS Premix 600 mg 50 / 50 50 / 50 In 50 ml @ 100 mls/hr IV.SIG Q6H TED Rx#:[id number] Oral 480 / 480 Output: Urine 800 / 800 Other: # Voids 1 Lab - Hematology Results 03/21/18 03/22/18 03:00 03:32 WBC 7.1 6.3 RBC 3.45 L 3.65 L Hgb 11.3 L 11.7 Hct 32.6 L 35.0 MCV 94.4 95.9 MCH 32.8 32.0 MCHC 34.7 33.3 RDW 13.2 12.9 Plt Count 301 286 MPV 7.2 7.4 Neut % (Auto) 67.0 61.0 Lymph % (Auto) 17.9 23.3 [place] % (Auto) 8.3 H 8.2 H Eos % (Auto) 4.3 H 6.4 H Baso % (Auto) 2.5 H 1.1 Neut # (Auto) 4.8 3.8 Lymph # (Auto) 1.3 1.5 [place] # (Auto) 0.6 0.5 Eos # (Auto) 0.3 0.4 Baso # (Auto) 0.2 0.1 WBC Differential . . Differential Comment Auto diff final Auto diff final Lab - Chemistry Results 03/21/18 03/21/18 03/22/18 03:00 03:00 03:32 Sodium 142 142 Potassium 3.7 3.4 L Chloride 106 108 H Carbon Dioxide 23.5 24.0 Anion Gap 13 10 BUN 19 H 15 Creatinine 2.32 H 1.81 H Estimated GFR 20 L 27 L Random Glucose 87 77 Calcium 8.6 8.6 Magnesium 2.7 H Total Bilirubin 0.4 0.3 AST 20 21 ALT 61 H 52 Alkaline Phosphatase 91 83 Total Creatine Kinase 25 L Troponin I Less than 0.02 L B-Natriuretic Peptide 138 H Total Protein 6.7 6.4 Albumin 2.6 L 2.5 L Imaging: ITS Impressions Abdomen/Bladder Ultrasound 03/21/18 00:00 CONCLUSION: 1. No evidence of hydronephrosis. 2. Increased cortical echogenicity characteristic of medical renal disease. 3. Simple cyst in left kidney. Chest X-Ray 03/22/18 06:01 CONCLUSION: Possible slight worsening left lung base consolidation. Physical Exam: GENERAL: NAD SKIN: Warm and dry. HEAD: Atraumatic. Normocephalic. EYES: Pupils equal and round. No scleral icterus. No injection or drainage. ENT: No nasal bleeding or discharge. Mucous membranes pink and moist. NECK: Trachea midline. No JVD. CARDIOVASCULAR: Regular rate and rhythm. RESPIRATORY: No accessory muscle use. Clear to auscultation. Breath sounds mmarkedly decreased on L GASTROINTESTINAL: Abdomen soft, non-tender, nondistended. Hepatic and splenic margins not palpable. MUSCULOSKELETAL: Extremities without clubbing, cyanosis, or edema. No obvious deformities. NEUROLOGICAL: Awake and alert. No obvious cranial nerve deficits. Motor grossly within normal limits. Five out of 5 muscle strength in the arms and legs. Normal speech. PSYCHIATRIC: Appropriate mood and affect; insight and judgment normal. Assessment and Plan - Plan LLL persistent PNA path c LLL effusion, culture negative sp post VATS worseing radiologically? YESENIA, suspect interstitial nephritis - + urine eosinophils -cont clindamycin - when ready to dc will switch to PO will repeat CXR in [address] Simpson
--- NOTE | 2018-03-22 12:47 | P.PNNP ---
Subjective Interval history: Renal function is improving. She is making urine. No acute complaints. Had some left sided rib/flank pain during the night that was self limiting. <Guillermina Mejia - Last Filed: 03/22/18 12:44> Physical Exam Vital signs: Vital Signs 03/21/18 13:54 03/21/18 15:00 03/21/18 16:00 Temperature 96.4 F L 97.4 F L Pulse Rate 68 67 64 Respiratory Rate 16 24 Blood Pressure 165/77 H 170/90 H Pulse Oximetry 95 96 03/21/18 20:00 03/21/18 21:54 03/21/18 23:59 Temperature 98 F Pulse Rate 63 67 59 L Respiratory Rate 16 Blood Pressure 145/79 H Pulse Oximetry 03/22/18 00:00 03/22/18 01:21 03/22/18 01:39 Temperature 98.1 F 98.7 F Pulse Rate 63 61 Respiratory Rate 16 16 18 Blood Pressure 148/86 H 176/83 H Pulse Oximetry 94 L 03/22/18 04:25 03/22/18 09:39 Temperature 98.4 F Pulse Rate 63 73 Respiratory Rate 17 16 Blood Pressure 161/74 H 129/63 Pulse Oximetry 96 Intake & Output 03/21/18 03/22/18 03/22/18 18:59 06:59 18:59 Intake Total 1050 / 1050 3430 / 3430 Output Total 800 / 800 Balance 1050 / 1050 2630 / 2630 Intake: IV 1050 / 1050 2950 / 2950 D5W/1/2 NS Inj 1,000 ML @ 75 1000 / 1000 mls/hr IV.CONT .[id number] TED Rx# :[id number] NS Inj 1,000 ML @ 100 mls/hr IV 1000 / 1000 900 / 900 .CONT .Q10H TED Rx#:[id number] Cleocin 600 mg/NS Premix 600 mg 50 / 50 50 / 50 In 50 ml @ 100 mls/hr IV.SIG Q6H TED Rx#:[id number] Oral 480 / 480 Output: Urine 800 / 800 Other: # Voids 1 - Constitutional no acute distress, average body habitus - Routine HEENT Exam Head: Present: normocephalic - Routine Neck Exam Present: supple, full ROM - Routine Respiratory Exam Present: distant breath sounds. Absent: accessory muscle use, rhonchi - Routine Cardiovascular Exam Present: RRR, S1, S2 - Routine Abdominal Exam Present: soft, normoactive bowel sounds - Routine Extremities Exam Present: full ROM, pulses intact. Absent: edema - Routine Skin Exam Present: intact, dry, warm - Routine Neurological Exam Present: alert, oriented X3, CN II-XII intact - Detailed Neurological Exam: Coma Scale Eye Opening: Spontaneous Verbal Response: Oriented Motor Response: Obey commands [place] Coma Scale Total: 15 - Routine Psychiatric Exam Present: normal affect, normal thought process <Guillermina Mejia - Last Filed: 03/22/18 12:44> Vital signs: Vital Signs 03/21/18 20:00 03/21/18 21:54 03/21/18 23:59 Temperature 98 F Pulse Rate 63 67 59 L Respiratory Rate 16 Blood Pressure 145/79 H Pulse Oximetry 03/22/18 00:00 03/22/18 01:21 03/22/18 01:39 Temperature 98.1 F 98.7 F Pulse Rate 63 61 Respiratory Rate 16 16 18 Blood Pressure 148/86 H 176/83 H Pulse Oximetry 94 L 03/22/18 04:25 03/22/18 08:00 03/22/18 09:39 Temperature 98.4 F 97.8 F Pulse Rate 63 70 73 Respiratory Rate 17 18 16 Blood Pressure 161/74 H 169/84 H 129/63 Pulse Oximetry 96 96 03/22/18 12:00 Temperature 97.5 F L Pulse Rate 66 Respiratory Rate 18 Blood Pressure 184/78 H Pulse Oximetry 95 Intake & Output 03/21/18 03/22/18 03/22/18 18:59 06:59 18:59 Intake Total 1050 / 1050 3430 / 3430 Output Total 800 / 800 Balance 1050 / 1050 2630 / 2630 Intake: IV 1050 / 1050 2950 / 2950 D5W/1/2 NS Inj 1,000 ML @ 75 1000 / 1000 mls/hr IV.CONT .[id number] TED Rx# :[id number] NS Inj 1,000 ML @ 100 mls/hr IV 1000 / 1000 900 / 900 .CONT .Q10H TED Rx#:[id number] Cleocin 600 mg/NS Premix 600 mg 50 / 50 50 / 50 In 50 ml @ 100 mls/hr IV.SIG Q6H TED Rx#:[id number] Oral 480 / 480 Output: Urine 800 / 800 Other: # Voids 1 <Augusto Molina - Last Filed: 03/22/18 16:56> Assessment and Plan - Assessment (1) YESENIA (acute kidney injury) Code(s): N17.9 - Acute kidney failure, unspecified Status: Acute Plan: Her creatinine was 0.85 at discharge on 03/17 YESENIA most likely prerenal azotemia due to nausea/vomiting and decreased oral intake. Renal function has improved, expect continued improvement. Okay to stop IVF. PO fluid encouraged.s She is non oliguric cleared for discharge from renal perspective. Avoid nephrotoxic agents. (2) Pneumonia Code(s): J18.9 - Pneumonia, unspecified organism Status: Acute Qualifiers: Pneumonia type: due to unspecified organism Laterality: left Lung location: lower lobe of lung Qualified Code(s): J18.1 - Lobar pneumonia, unspecified organism Plan: Recent complicated admission s/p VATS with pigtail catheter, s/p pneumothorax after lung biopsy On IV Cipro here Chest Xray reviewed <Guillermina Mejia - Last Filed: 03/22/18 12:44> - Assessment (1) YESENIA (acute kidney injury) Code(s): N17.9 - Acute kidney failure, unspecified Status: Acute (2) Pneumonia Code(s): J18.9 - Pneumonia, unspecified organism Status: Acute Qualifiers: Pneumonia type: due to unspecified organism Laterality: left Lung location: lower lobe of lung Qualified Code(s): J18.1 - Lobar pneumonia, unspecified organism - Attending Attestation patient was seen and examined. Agree with above assessment and plan. <Augusto Molina - Last Filed: 03/22/18 16:56>
--- NOTE | 2018-03-22 13:00 | P.PN ---
Subjective Interval history: She is feeling better. Has some pain in chest . CXR looks the same Physical Exam Vital signs: Vital Signs 03/21/18 13:54 03/21/18 15:00 03/21/18 16:00 Temperature 96.4 F L 97.4 F L Pulse Rate 68 67 64 Respiratory Rate 16 24 Blood Pressure 165/77 H 170/90 H Pulse Oximetry 95 96 03/21/18 20:00 03/21/18 21:54 03/21/18 23:59 Temperature 98 F Pulse Rate 63 67 59 L Respiratory Rate 16 Blood Pressure 145/79 H Pulse Oximetry 03/22/18 00:00 03/22/18 01:21 03/22/18 01:39 Temperature 98.1 F 98.7 F Pulse Rate 63 61 Respiratory Rate 16 16 18 Blood Pressure 148/86 H 176/83 H Pulse Oximetry 94 L 03/22/18 04:25 03/22/18 09:39 Temperature 98.4 F Pulse Rate 63 73 Respiratory Rate 17 16 Blood Pressure 161/74 H 129/63 Pulse Oximetry 96 Intake & Output 03/21/18 03/22/18 03/22/18 18:59 06:59 18:59 Intake Total 1050 / 1050 3430 / 3430 Output Total 800 / 800 Balance 1050 / 1050 2630 / 2630 Intake: IV 1050 / 1050 2950 / 2950 D5W/1/2 NS Inj 1,000 ML @ 75 1000 / 1000 mls/hr IV.CONT .[id number] TED Rx# :[id number] NS Inj 1,000 ML @ 100 mls/hr IV 1000 / 1000 900 / 900 .CONT .Q10H TED Rx#:[id number] Cleocin 600 mg/NS Premix 600 mg 50 / 50 50 / 50 In 50 ml @ 100 mls/hr IV.SIG Q6H TED Rx#:[id number] Oral 480 / 480 Output: Urine 800 / 800 Other: # Voids 1 GENERAL: SKIN: Warm and dry. HEAD: Atraumatic. Normocephalic. EYES: Pupils equal and round. No scleral icterus. No injection or drainage. ENT: No nasal bleeding or discharge. Mucous membranes pink and moist. NECK: Trachea midline. No JVD. CARDIOVASCULAR: Regular rate and rhythm. RESPIRATORY:Occ left base crackles. Breath sounds equal bilaterally. GASTROINTESTINAL: Abdomen soft, non-tender, nondistended. Hepatic and splenic margins not palpable. MUSCULOSKELETAL: Extremities without clubbing, cyanosis, or edema. No obvious deformities. NEUROLOGICAL: Awake and alert. No obvious cranial nerve deficits. Motor grossly within normal limits. Normal speech. PSYCHIATRIC: Appropriate mood and affect; insight and judgment normal. Results - Labs CBC & Chem 7: 03/22/18 03:32 03/22/18 03:32 Laboratory Results - last 24 hr 03/21/18 03/21/18 03/22/18 11:45 19:48 03:32 WBC 6.3 RBC 3.65 L Hgb 11.7 Hct 35.0 MCV 95.9 MCH 32.0 MCHC 33.3 RDW 12.9 Plt Count 286 MPV 7.4 Neut % (Auto) 61.0 Lymph % (Auto) 23.3 [place] % (Auto) 8.2 H Eos % (Auto) 6.4 H Baso % (Auto) 1.1 Neut # (Auto) 3.8 Lymph # (Auto) 1.5 [place] # (Auto) 0.5 Eos # (Auto) 0.4 Baso # (Auto) 0.1 WBC Differential . Differential Comment Auto diff final Sodium Potassium Chloride Carbon Dioxide Anion Gap BUN Creatinine Estimated GFR Random Glucose Calcium Total Bilirubin AST ALT Alkaline Phosphatase Total Protein Albumin Urine Eosinophils Rare H Ur Random Creatinine 27 Ur Random Sodium 65 03/22/18 03:32 WBC RBC Hgb Hct MCV MCH MCHC RDW Plt Count MPV Neut % (Auto) Lymph % (Auto) [place] % (Auto) Eos % (Auto) Baso % (Auto) Neut # (Auto) Lymph # (Auto) [place] # (Auto) Eos # (Auto) Baso # (Auto) WBC Differential Differential Comment Sodium 142 Potassium 3.4 L Chloride 108 H Carbon Dioxide 24.0 Anion Gap 10 BUN 15 Creatinine 1.81 H Estimated GFR 27 L Random Glucose 77 Calcium 8.6 Total Bilirubin 0.3 AST 21 ALT 52 Alkaline Phosphatase 83 Total Protein 6.4 Albumin 2.5 L Urine Eosinophils Ur Random Creatinine Ur Random Sodium - Imaging Impressions Chest X-Ray 03/22/18 06:01 CONCLUSION: Possible slight worsening left lung base consolidation. 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 Will ask Thoracic surgery to See. 2. Continue IS Q2H 3. Duonebs tid prn 4. Cont antibiotics 5. CXR ,CBC,BMP in am (3) Pneumonia Qualifiers: Pneumonia type: due to unspecified organism Laterality: left Lung location: lower lobe of lung Qualified Code(s): J18.1 - Lobar pneumonia, unspecified organism
--- NOTE | 2018-03-22 14:05 | P.PNIM ---
Subjective Interval history: FU YESENIA and PNA. Patient laying in bed just returned from a walk, states it is painful to take a deep breath but she is able to do her breathing exercises. She denies any chest pain. Discussed with Dr. Wilson who doesn't think the chest x ray is worse but would recommend Thoracic surgeon evaluate. Physical Exam Vital signs: Vital Signs 03/21/18 13:54 03/21/18 15:00 03/21/18 16:00 Temperature 96.4 F L 97.4 F L Pulse Rate 68 67 64 Respiratory Rate 16 24 Blood Pressure 165/77 H 170/90 H Pulse Oximetry 95 96 03/21/18 20:00 03/21/18 21:54 03/21/18 23:59 Temperature 98 F Pulse Rate 63 67 59 L Respiratory Rate 16 Blood Pressure 145/79 H Pulse Oximetry 03/22/18 00:00 03/22/18 01:21 03/22/18 01:39 Temperature 98.1 F 98.7 F Pulse Rate 63 61 Respiratory Rate 16 16 18 Blood Pressure 148/86 H 176/83 H Pulse Oximetry 94 L 03/22/18 04:25 03/22/18 08:00 03/22/18 09:39 Temperature 98.4 F 97.8 F Pulse Rate 63 70 73 Respiratory Rate 17 18 16 Blood Pressure 161/74 H 169/84 H 129/63 Pulse Oximetry 96 96 03/22/18 12:00 Temperature 97.5 F L Pulse Rate 66 Respiratory Rate 18 Blood Pressure 184/78 H Pulse Oximetry 95 Intake & Output 03/21/18 03/22/18 03/22/18 18:59 06:59 18:59 Intake Total 1050 / 1050 3430 / 3430 Output Total 800 / 800 Balance 1050 / 1050 2630 / 2630 Intake: IV 1050 / 1050 2950 / 2950 D5W/1/2 NS Inj 1,000 ML @ 75 1000 / 1000 mls/hr IV.CONT .[id number] TED Rx# :[id number] NS Inj 1,000 ML @ 100 mls/hr IV 1000 / 1000 900 / 900 .CONT .Q10H TED Rx#:[id number] Cleocin 600 mg/NS Premix 600 mg 50 / 50 50 / 50 In 50 ml @ 100 mls/hr IV.SIG Q6H TED Rx#:[id number] Oral 480 / 480 Output: Urine 800 / 800 Other: # Voids 1 Narrative: GENERAL: This is a well-nourished, well-developed patient, in no apparent distress. CARDIOVASCULAR: Regular rate and rhythm without murmurs, gallops, or rubs. RESPIRATORY: Left lower crackles noted GASTROINTESTINAL: Abdomen soft, non-tender, nondistended. Normal active bowel sounds MUSCULOSKELETAL: Extremities without clubbing, cyanosis, or edema. NEURO: Alert & Oriented x4 to person, place, time, situation. Moves all ext x4 Results - Labs CBC & Chem 7: 03/22/18 03:32 03/22/18 03:32 Laboratory Results - last 24 hr 03/21/18 03/21/18 03/22/18 11:45 19:48 03:32 WBC 6.3 RBC 3.65 L Hgb 11.7 Hct 35.0 MCV 95.9 MCH 32.0 MCHC 33.3 RDW 12.9 Plt Count 286 MPV 7.4 Neut % (Auto) 61.0 Lymph % (Auto) 23.3 [place] % (Auto) 8.2 H Eos % (Auto) 6.4 H Baso % (Auto) 1.1 Neut # (Auto) 3.8 Lymph # (Auto) 1.5 [place] # (Auto) 0.5 Eos # (Auto) 0.4 Baso # (Auto) 0.1 WBC Differential . Differential Comment Auto diff final Sodium Potassium Chloride Carbon Dioxide Anion Gap BUN Creatinine Estimated GFR Random Glucose Calcium Total Bilirubin AST ALT Alkaline Phosphatase Total Protein Albumin Urine Eosinophils Rare H Ur Random Creatinine 27 Ur Random Sodium 65 03/22/18 03:32 WBC RBC Hgb Hct MCV MCH MCHC RDW Plt Count MPV Neut % (Auto) Lymph % (Auto) [place] % (Auto) Eos % (Auto) Baso % (Auto) Neut # (Auto) Lymph # (Auto) [place] # (Auto) Eos # (Auto) Baso # (Auto) WBC Differential Differential Comment Sodium 142 Potassium 3.4 L Chloride 108 H Carbon Dioxide 24.0 Anion Gap 10 BUN 15 Creatinine 1.81 H Estimated GFR 27 L Random Glucose 77 Calcium 8.6 Total Bilirubin 0.3 AST 21 ALT 52 Alkaline Phosphatase 83 Total Protein 6.4 Albumin 2.5 L Urine Eosinophils Ur Random Creatinine Ur Random Sodium - Imaging Impressions Chest X-Ray 03/22/18 06:01 CONCLUSION: Possible slight worsening left lung base consolidation. Assessment and Plan - Plan 77-year-old female admitted secondary to acute kidney injury and dehydration Acute kidney injury, likely due to dehydration, creatine 2.3 on admission -creatine 1.8 improving -IV hydration, renal is ok with stopping IV and encourage PO -Follow renal function Pneumonia and hx of empyema, Recent chest tube, Status post VATS and decortication -Etiology related to dehydration versus inflammation/reactivity versus both -ID has changed Augmentin to clindamycin. ID following -Pulmonology following, recommends IS, duonebs, and chest x ray in am -Consult thoracic surgery for re-evaluation -Pain control with PO Percocet Hypertension, Possibly due to pain -Start norvasc PO daily -Monitor vitals -Cont with pain management DVT prophylaxis: SCDs, Heparin Discussed Condition With: Patient and patients Discharge Planning: Once stable
[2018-03-22] MEDS: oxyCODONE/Acetaminophen 10/325 Tablet PO PRN (23:28)
[2018-03-23] MEDS: oxyCODONE/Acetaminophen 10/325 Tablet PO PRN (03:13)
[2018-03-23] MEDS: Clindamycin 600 mg/NS Premix 600 MG/50 ML PIGGYBACK IV.SIG SCH ×5 (03:14→12:49)
[2018-03-23 06:09] LABS: Baso # (Auto) 0.1 th/mm3 (0.0-0.2); Baso % (Auto) 1.2 % (0.0-2.0); Eos # (Auto) 0.3 th/mm3 (0.0-0.4); Hematocrit 32.6 % (35.0-46.0); Lymph # (Auto) 1.4 th/mm3 (1.0-4.8); Lymph % (Auto) 21.9 % (9.0-44.0); Mean Corpuscular HGB Conc 33.9 % (32.0-36.0); Mean Corpuscular Hemoglobin 32.2 pg (27.0-34.0); Mean Corpuscular Volume 94.9 fL (80.0-100.0); Mean Platelet Volume 7.6 fL (7.0-11.0); Mono # (Auto) 0.6 th/mm3 (0.0-0.9); Mono % (Auto) 9.8 % (0.0-8.0); Neut % (Auto) 62.1 % (16.0-70.0); Platelet Count 279 th/mm3 (150-450); Red Blood Count 3.43 mil/mm3 (4.00-5.30); Red Cell Distribution Width 13.3 % (11.6-17.2); White Blood Count 6.5 th/mm3 (4.0-11.0)
[2018-03-23] MEDS: Heparin - SQ 10,000 UNITS/ML Vial SQ SCH ×2 (06:23→07:22)
[2018-03-23 06:28] LABS: Calcium 8.4 mg/dL (8.5-10.1); Carbon Dioxide 25.3 meq/L (21.0-32.0); Magnesium 2.4 mg/dL (1.5-2.5); Potassium 3.8 meq/L (3.5-5.1)
--- NOTE | 2018-03-23 06:59 | XR ---
EXAM DATE: 03/23/2018 6:56 AM EDT AGE/SEX: 77 years / Female INDICATIONS: Short of breath, evaluate pneumonia CLINICAL DATA: This is the patient's subsequent encounter. Patient reports that signs and symptoms h ave been present for 1 week and indicates a pain score of 0/10. MEDICAL/SURGICAL HISTORY: Carcinoma, lung. pneumonia None. COMPARISON: [facility] [place], CHEST 1V SINGLE AP, 03/22/2018. . FINDINGS: Left lung base consolidation have not changed. Tiny pleural effusion may present. There is prominence of the hilar shadows probably technical. The rest of the examination has not changed. CONCLUSION: No appreciable change in left lung base consolidation and possible tiny left pleural effusion. Electronically signed by: Lesli Baislio MD 03/23/2018 6:58 AM EDT
[2018-03-23] MEDS: Senna/Docusate Sodium 8.6/50 MG Tablet PO SCH (08:01)
[2018-03-23] MEDS: amLODIPine 5 MG Tablet PO SCH ×2 (08:01→11:24)
--- NOTE | 2018-03-23 13:13 | P.PNADD ---
Addendum to Inpatient Note Additional information: CXR is no changes Creatinin down to 1.68 cont clindamycin 300 qid PO for at least 10 more days Insentive spirometry OOB dw pt's dgtr over the phone
--- NOTE | 2018-03-23 15:02 | P.PN ---
Subjective Interval history: Follow up: recent Pneumonia and hx of empyema, Recent chest tube, Status post VATS and decortication, Acute kidney injury, Hypertension Patient reports appetite better, c/o pain with deep breathing asking for muscle relaxer Physical Exam Vital signs: Vital Signs 03/22/18 16:00 03/22/18 20:16 03/23/18 00:08 Temperature 97.6 F 97.5 F L 98.1 F Pulse Rate 66 68 103 H Respiratory Rate 18 16 18 Blood Pressure 134/77 129/63 140/73 Pulse Oximetry 95 96 96 03/23/18 04:13 03/23/18 08:00 03/23/18 12:00 Temperature 97.9 F 98.0 F 97.9 F Pulse Rate 58 L 60 63 Respiratory Rate 16 17 16 Blood Pressure 143/83 H 136/70 134/75 Pulse Oximetry 92 L 93 L 94 L Intake & Output 03/22/18 03/23/18 03/23/18 18:59 06:59 18:59 Intake Total 1800 / 1800 630 / 630 100 / 100 Output Total 1450 / 1450 1324 / 1324 Balance 350 / 350 -694 / -694 100 / 100 Weight 72.57 kg Intake: IV 50 / 50 100 / 100 Cleocin 600 mg/NS Premix 600 mg 50 / 50 100 / 100 In 50 ml @ 100 mls/hr IV.SIG Q6H [facility] Rx#:[id number] Oral 1800 / 1800 580 / 580 Output: Urine 1450 / 1450 1324 / 1324 Narrative: GENERAL: This is a well-nourished, well-developed patient, in no apparent distress. CARDIOVASCULAR: Regular rate and rhythm RESPIRATORY: diminished through out poor effort, Left lower crackles noted GASTROINTESTINAL: Abdomen soft, non-tender, nondistended. Normal active bowel sounds MUSCULOSKELETAL: Extremities without clubbing, cyanosis, or edema. NEURO: Alert & Oriented x4 to person, place, time, situation. Moves all ext x4 Results - Labs CBC & Chem 7: 03/23/18 04:30 03/23/18 04:30 Laboratory Results - last 24 hr 03/23/18 03/23/18 04:30 04:30 WBC 6.5 RBC 3.43 L Hgb 11.0 L Hct 32.6 L MCV 94.9 MCH 32.2 MCHC 33.9 RDW 13.3 Plt Count 279 MPV 7.6 Neut % (Auto) 62.1 Lymph % (Auto) 21.9 [place] % (Auto) 9.8 H Eos % (Auto) 5.0 H Baso % (Auto) 1.2 Neut # (Auto) 4.0 Lymph # (Auto) 1.4 [place] # (Auto) 0.6 Eos # (Auto) 0.3 Baso # (Auto) 0.1 WBC Differential . Differential Comment Auto diff final Sodium 142 Potassium 3.8 Chloride 110 H Carbon Dioxide 25.3 Anion Gap 7 BUN 12 Creatinine 1.68 H Estimated GFR 30 L Random Glucose 90 Calcium 8.4 L Magnesium 2.4 - Imaging Impressions Chest X-Ray 03/23/18 06:00 CONCLUSION: No appreciable change in left lung base consolidation and possible tiny left pleural effusion. Assessment and Plan - Plan 77-year-old female admitted secondary to acute kidney injury and dehydration Acute kidney injury, likely due to dehydration, creatine 2.3 on admission -creatine improving (03/22) 1.81 --> (03/23) 1.68 -IV hydration, renal is ok with stopping IV and encourage PO -Follow renal function Pneumonia and hx of empyema, Recent chest tube, Status post VATS and decortication -Etiology related to dehydration versus inflammation/reactivity versus both -ID has changed Augmentin to clindamycin. ID following recommending cont clindamycin 300 qid PO for at least 10 more days -Pulmonology following, recommends IS, duonebs, and chest x ray (03/23): No appreciable change in left lung base consolidation and possible tiny left pleural effusion. -Consult thoracic surgery for re-evaluation awaiting recommendations -Pain control with PO Percocet -added Flexeril Hypertension -continue norvasc PO daily -Monitor vitals -Cont with pain management DVT prophylaxis: SCDs, Heparin Discussed Condition With: Supervising physician Dr. Raines, Patient and patients Discharge Planning: Once cleared by CV surgery
--- NOTE | 2018-03-23 15:53 | P.DIET ---
Nutritional Evaluation Type of nutrition evaluation: initial Nutrition screening: Weight Loss > 10 lbs Subjective Subjective Comments: Recent hospitalization here 03/13 for recurrent Pneumonia and Pleural Effusion wt 76.1kg Objective - Diagnosis Dehydration, Acute Renal Failure - Indications of Malnutrition Characteristics: Weight loss - Objective Allen body weight: 52.3 kg % IBW: 139 Body Weight Used for Calculations: IBW Energy Needs - Lower Range (kCal/kg): 28 Energy Needs - Upper Range (kCal/kg): 33 Lower Limit kCal/kg (kCals): 1,464 Upper Limit kCal/kg (kCals): 1,726 Lower Limit Protein Factor (Grams per Kg): 1.1 Upper Limit Protein Factor (Grams per Kg): 1.4 Lower Protein Needs (Protein): 58 Upper Protein Needs (Protein): 73 Dietitian Reviewed in Medical Record: Current diet, Curent medications, Intake & Output, Labs, Medical history Diet Order: Regular Oral Diet Intake Amount: Poor <50% Objective Comments: PMH: Bronchitis, GERD, h/o smoking Labs Include: Creatinine 1.68, est GFR 30 +UOP 2774ml Assessment Assessment: Pt is at nutritional risk r/t recent unintentional wt loss 3.5 kg and poor po intake. PO intake 50% or less for meals. Send Ensure w/meals to offer 250 kcal and 9g Protein per serving. Labs reviewed-monitor renal labs. Dietitian will follow. Recommendations: 1. Ensure w/meals 2. Dietitian following Dietitian to Monitor: Lab values, Renal labs, Supplement acceptance, Intake & Output, Weight change, PO Intake, Medical course
--- NOTE | 2018-03-23 15:57 | P.DS ---
Date of admission: 03/21/18 05:07 Primary care physician: UNKNOWN Attending physician on discharge: Martin Raines Anticipated date of discharge: 03/23/18 Brief History from admission: Mrs. Ruiz is a 77-year-old female. She is admitted secondary to back pain with acute kidney injury and dehydration. She was previously admitted here had a complicated course related to pneumonia. This included chest tube placement which has subsequently been removed. At last admit she was discharged on Augmentin. She was at home with Augmentin for 2 days and reports a metallic taste in her mouth, decreased appetite, poor p.o. intake, and a developing back pain greater at the left. Upon arrival to the ER she was found to have acute kidney injury which could either be related to dehydration or inflammation/ reaction. By history there may be a reactive component. Currently her Augmentin has been changed to clindamycin. The patient reports that she is having decreased flank pain after this change. Her appetite is not yet improved. No other complaints today. DS: Diagnosis - Discharge Diagnosis (1) HTN (hypertension) Status: Acute (2) Pneumonia Status: Acute (3) YESENIA (acute kidney injury) Status: Acute DS: Medications - Discharge Medications Prescriptions: amlodipine [Norvasc] 5 mg PO DAILY 30 Days #30 tab clindamycin HCl 300 mg PO QID 10 Days #40 cap cyclobenzaprine 5 mg PO TID PRN 10 Days #30 tab PRN Reason: Muscle Spasm oxycodone-acetaminophen 1 tab PO Q6H PRN #12 tab PRN Reason: Pain 6 to 10 DS: Summary Hospital Course: 77-year-old female admitted secondary to acute kidney injury and dehydration Acute kidney injury, likely due to dehydration, creatine 2.3 on admission -creatine improving (03/22) 1.81 --> (03/23) 1.68 -IV hydration, renal is ok with stopping IV and encourage PO -Follow renal function Pneumonia and hx of empyema, Recent chest tube, Status post VATS and decortication -Etiology related to dehydration versus inflammation/reactivity versus both -ID has changed Augmentin to clindamycin. ID following recommending cont clindamycin 300 qid PO for at least 10 more days -Pulmonology following, recommends IS, duonebs, and chest x ray (03/23): No appreciable change in left lung base consolidation and possible tiny left pleural effusion. -Consult thoracic surgery for re-evaluation awaiting recommendations -Pain control with PO Percocet -added Flexeril Hypertension -continue norvasc PO daily -Monitor vitals -Cont with pain management DVT prophylaxis: SCDs, Heparin Discussed Condition With: Supervising physician Dr. Raines, Patient and patients - Time Spent with Patient Total time spent providing and/or coordinating discharge services: Greater than 30 minutes - Quality: VTE Deep Vein Thrombosis/Pulmonary Embolism Present on Admission: No Exam Vital signs: Vital Signs 03/22/18 16:00 03/22/18 20:16 03/23/18 00:08 Temperature 97.6 F 97.5 F L 98.1 F Pulse Rate 66 68 103 H Respiratory Rate 18 16 18 Blood Pressure 134/77 129/63 140/73 Pulse Oximetry 95 96 96 03/23/18 04:13 03/23/18 08:00 03/23/18 12:00 Temperature 97.9 F 98.0 F 97.9 F Pulse Rate 58 L 60 63 Respiratory Rate 16 17 16 Blood Pressure 143/83 H 136/70 134/75 Pulse Oximetry 92 L 93 L 94 L Intake & Output 03/22/18 03/23/18 03/23/18 18:59 06:59 18:59 Intake Total 1800 / 1800 630 / 630 150 / 150 Output Total 1450 / 1450 1324 / 1324 Balance 350 / 350 -694 / -694 150 / 150 Weight 72.57 kg Intake: IV 50 / 50 150 / 150 Cleocin 600 mg/NS Premix 600 mg 50 / 50 150 / 150 In 50 ml @ 100 mls/hr IV.SIG Q6H [facility] Rx#:[id number] Oral 1800 / 1800 580 / 580 Output: Urine 1450 / 1450 1324 / 1324 Narrative: GENERAL: This is a well-nourished, well-developed patient, in no apparent distress. CARDIOVASCULAR: Regular rate and rhythm RESPIRATORY: diminished through out poor effort, Left lower crackles noted GASTROINTESTINAL: Abdomen soft, non-tender, nondistended. Normal active bowel sounds MUSCULOSKELETAL: Extremities without clubbing, cyanosis, or edema. NEURO: Alert & Oriented x4 to person, place, time, situation. Moves all ext x4 Results Procedures completed during hospitalization: none Labs on day of discharge: Labs from last 24 hours 03/23/18 03/23/18 04:30 04:30 WBC 6.5 RBC 3.43 L Hgb 11.0 L Hct 32.6 L MCV 94.9 MCH 32.2 MCHC 33.9 RDW 13.3 Plt Count 279 MPV 7.6 Neut % (Auto) 62.1 Lymph % (Auto) 21.9 [place] % (Auto) 9.8 H Eos % (Auto) 5.0 H Baso % (Auto) 1.2 Neut # (Auto) 4.0 Lymph # (Auto) 1.4 [place] # (Auto) 0.6 Eos # (Auto) 0.3 Baso # (Auto) 0.1 WBC Differential . Differential Comment Auto diff final Sodium 142 Potassium 3.8 Chloride 110 H Carbon Dioxide 25.3 Anion Gap 7 BUN 12 Creatinine 1.68 H Estimated GFR 30 L Random Glucose 90 Calcium 8.4 L Magnesium 2.4 - Impressions ITS Impressions Abdomen/Bladder Ultrasound 03/21/18 00:00 CONCLUSION: 1. No evidence of hydronephrosis. 2. Increased cortical echogenicity characteristic of medical renal disease. 3. Simple cyst in left kidney. Chest X-Ray 03/23/18 06:00 CONCLUSION: No appreciable change in left lung base consolidation and possible tiny left pleural effusion. Discharge Plan - Discharge Disposition Patient Disposition: 01 Discharge Home - Discharge Condition Condition: Stable - Discharge Order Discharge Orders: Discharge Order (Routine); Ordered 03/23/18 Ordered By: Daphne Taveras - Discharge Details Anticipated Discharge Date: 03/23/18 - Physicians Team Primary Care Provider: UNKNOWN, Attending Provider: Martin Raines Other Providers: Breanna Landin MD ; Augusto Molina MD ; Timi Wilson MD ; Jerry Dominguez MD
--- NOTE | 2018-03-23 16:18 | P.PNCV ---
- Note Subjective/Hospital Course: 77-year-old female. She is admitted secondary to back pain with acute kidney injury and dehydration. She was previously admitted here had a complicated course related to pneumonia. Left VATS , decortication , lysis of adhesions 03/14. She was discharged on Augmentin. She was at home with Augmentin for 2 days and reports a metallic taste in her mouth, decreased appetite, poor p.o. intake, and a developing back pain greater at the left. Upon arrival to the ER she was found to have acute kidney injury which could either be related to dehydration or inflammation/reaction. By history there may be a reactive component. Currently her Augmentin has been changed to clindamycin. The patient reports that she is having decreased flank pain after this change. Her appetite is not yet improved. No other complaints today. pt admits to minimal activity, not using IS despite post op teaching at her last discharge CXR evaluated no evidence of fluid collection, consolidation left lower lobe agree to continue po antibiotics , pain control explained pulm toileting, ambulation with pt and family she has a current f/u appointment with us 04/03 at 11:30 Objective: Vital Signs - 24 hr 03/22/18 20:16 03/23/18 00:08 03/23/18 04:13 Temperature 97.5 F L 98.1 F 97.9 F Pulse Rate 68 103 H 58 L Respiratory Rate 16 18 16 Blood Pressure 129/63 140/73 143/83 H Pulse Oximetry 96 96 92 L 03/23/18 08:00 03/23/18 12:00 Temperature 98.0 F 97.9 F Pulse Rate 60 63 Respiratory Rate 17 16 Blood Pressure 136/70 134/75 Pulse Oximetry 93 L 94 L GENERAL: A&O x 3 SKIN: Warm and dry. Left posterior lateral chest wall incisions intact and well approximated / chest tube site intact HEAD: Normocephalic. EYES: No scleral icterus. No injection or drainage. NECK: Supple, trachea midline. No JVD or lymphadenopathy. CARDIOVASCULAR: Regular rate and rhythm without murmurs, gallops, or rubs. few crackles and diminished left lower lobe RESPIRATORY: Breath sounds equal bilaterally. No accessory muscle use. GASTROINTESTINAL: Abdomen soft, non-tender, nondistended. MUSCULOSKELETAL: No cyanosis, or edema. BACK: Nontender without obvious deformity. No CVA tenderness. Labs: Laboratory Results - last 12 hr 03/23/18 03/23/18 04:30 04:30 WBC 6.5 RBC 3.43 L Hgb 11.0 L Hct 32.6 L MCV 94.9 MCH 32.2 MCHC 33.9 RDW 13.3 Plt Count 279 MPV 7.6 Neut % (Auto) 62.1 Lymph % (Auto) 21.9 [place] % (Auto) 9.8 H Eos % (Auto) 5.0 H Baso % (Auto) 1.2 Neut # (Auto) 4.0 Lymph # (Auto) 1.4 [place] # (Auto) 0.6 Eos # (Auto) 0.3 Baso # (Auto) 0.1 WBC Differential . Differential Comment Auto diff final Sodium 142 Potassium 3.8 Chloride 110 H Carbon Dioxide 25.3 Anion Gap 7 BUN 12 Creatinine 1.68 H Estimated GFR 30 L Random Glucose 90 Calcium 8.4 L Magnesium 2.4 Result Diagrams: 03/23/18 04:30 03/23/18 04:30 ok to ma home from [facility] standpoint
== END 2018-03-23 17:27 | disposition home or self-care (01) ==
LOC: NEPE 23:47 → NEDA 03-21 05:07 → HCIS 03-21 15:13 → N07 03-22 01:28
PROVIDERS: ADMIT Internal Medicine; ATTEND Internal Medicine